=== PATIENT | female | born 1980 | race Caucasian/White ===

== ENCOUNTER 2020-03-27 18:11 | Inpatient (IN) | payer MEDICARE ==
[2020-03-27] MEDS ORDERED: Sodium Chloride 0.9% 1000 ML 1,000 ML IV STA (18:30)
--- NOTE | 2020-03-27 18:34 | ERPHSYRPT ---
<PHANI RAMOS [place] - Last Filed: 03/27/20 23:23> - History of Present Illness Source: patient Exam Limitations: no limitations Patient Subjective Stated Complaint: pt here for increase sob, cough today, and fevers off and for a week Triage Nursing Assessment: pt alert, arrived per wc, coughing, face mask in place, she was on her way to [place] to dr when heart started racing and got scared and stopped here resp easy, skin w/d/pale, no edema, Timing/Duration: gradual onset Associated Symptoms: shortness of breath, cough, fever, No nausea, No vomiting, No abdominal pain, No syncope Hx Tetanus, Diphtheria Vaccination/Date Given: Yes (2008) Hx Influenza Vaccination/Date Given: No Hx Pneumococcal Vaccination/Date Given: No Immunizations Up to Date: Yes <ESSENCE ANTON - Last Filed: 03/28/20 10:03> - History of Present Illness Time Seen by Provider: 03/27/20 18:29 Physician History: The patient is a 40-year-old female with a past medical history significant for 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 Of note, the patient was a poor historian. She stated that she was evaluated in [facility] 3 days ago for similar symptoms and reportedly was on her way to [facility] this evening to get evaluated by what was believed to be an oncologist for her symptoms. She states that she has "pleurisy" affecting her lungs and is normally on 2 L/ min via nasal cannula supplemental oxygen at baseline. She reportedly had to stop at this emergency department because she was feeling worse. Of note, she was accompanied by father. Reportedly has had this diagnosis for 11 years and states that she has not had radiation but her last chemotherapy was January. She reportedly has had a fever of 101 F as well (ESSENCE ANTON) Allergies/Adverse Reactions: levothyroxine Allergy (Verified 03/28/20 00:52) Home Medications: Albuterol 2.5 mg/3 ml Neb [Proventil 2.5 mg/3 ml Neb] 2.5 mg IH Q4-6HPRN PRN 03/27/20 [History] Alprazolam 0.25 mg [xanAX 0.25 MG] 0.25 mg PO TID PRN 03/27/20 [History] Benzonatate 200 mg PO TID PRN 03/27/20 [History] Budesonide 0.5 mg/2 ml [Pulmicort 0.5 mg/2 ml Respules] 0.5 mg IH BID 03/27/20 [History] Cyclobenzaprine HCl 5 mg PO TIDPRN 03/27/20 [History] Fluconazole [Diflucan] 200 mg PO DAILY 03/27/20 [History] Fluoxetine HCl [Prozac] 40 mg PO DAILY 03/27/20 [History] Loratadine 10 mg [Claritin 10 mg] 10 mg PO DAILY 03/27/20 [History] Metoprolol Succinate 50 mg [Toprol Xl 50 MG] 25 mg PO DAILY 03/27/20 [History] Omeprazole 40 mg PO DAILY 03/27/20 [History] Oxycodone HCl 30 mg PO Q4-6HPRN PRN 03/27/20 [History] Oxycodone HCl [Oxycontin] 60 mg PO BID 03/27/20 [History] Prednisone 10 mg [Deltasone 10 mg] 10 mg PO DAILY 03/27/20 [History] Promethazine HCl/Codeine [Prometh-Codein 6.25-10 mg/5 ml] 5 ml PO Q6H PRN PRN 03/27/20 [History] fentaNYL [Duragesic] 75 mcg TD UD 03/27/20 [History] ondansetron HCL [Zofran] 8 mg PO Q6H PRN PRN 03/27/20 [History] Travel Risk - International Travel Have you traveled outside of the country in past 3 weeks: No - Coronavirus Screening Are you exhibiting any of the following symptoms?: Yes Symptoms: Fever, Cough: New Onset Close contact with a COVID-19 positive Pt in past 14-21 Days: No <ESSENCE ANTON - Last Filed: 03/28/20 10:03> - Review of Systems Constitutional: Fever, Chills, Fatigue Eyes: No Symptoms Ears, Nose, & Throat: No Ear Pain, No Ear Discharge Respiratory: Cough, Dyspnea, Dyspnea on Exertion (SOLORZANO) Cardiac: Chest Pain Abdominal/Gastrointestinal: No Abdominal Pain, No Nausea, No Vomiting Musculoskeletal: Back Pain Skin: No Symptoms Neurological: No Symptoms Psychological: No Symptoms All Other Systems: Reviewed and Negative <ESSENCE ANTON - Last Filed: 03/28/20 10:03> - Past Medical History Pertinent Past Medical History: Yes Neurological History: Migraines, Other ENT History: No Pertinent History Cardiac History: Other Respiratory History: Lung Cancer Endocrine Medical History: Other Musculoskeletal History: No Pertinent History GI Medical History: GERD History: No Pertinent History Psycho-Social History: No Pertinent History Female Reproductive Disorders: Endometriosis Other Medical History: DIZZINESS; GESTATIONAL DIABETES,stage 4 thyloma - Past Surgical History Past Surgical History: Yes Neuro Surgical History: No Pertinent History Cardiac: Other Respiratory: Other Gastrointestinal: No Pertinent History Genitourinary: No Pertinent History Musculoskeletal: No Pertinent History Female Surgical History: Section, Other Other Surgical History: EXP SURGERY FOR ENDOMETRIOSIS; OPEN HEART SURGERY FOR CA REMOVAL,chest tubes - Social History Smoking Status: Former smoker Exposure to second hand smoke: No Drug Use: none Patient Lives Alone: No - Female History Hx Last Menstrual Period: unsure Hx Now: No <ESSENCE ANTON - Last Filed: 03/28/20 10:03> - Physical Exam General Appearance: mild distress, alert, other (Chronically-ill appearing) Eye Exam: other (Pale conjunctiva), No photophobia, No EOM palsy/anisocoria Neck Exam: normal inspection, non-tender, supple Respiratory Exam: respiratory distress (Mild respiratory distress with tac hypnea), diminished breath sounds, crackles/rales, No chest tenderness Cardiovascular Exam: normal peripheral pulses, tachycardia, No murmur, No friction rub, No gallop, No edema, No pulse deficit Gastrointestinal/Abdomen Exam: soft, No tenderness, No distention Pelvic Exam: not done Rectal Exam: deferred Back Exam: normal inspection Extremity Exam: normal inspection Neurologic Exam: alert, oriented x 3, cooperative Skin Exam: pale, No warm, No dry, No rash, No cyanosis SpO2: 92 O2 Delivery: Nasal Cannula <ESSENCE ANTON - Last Filed: 03/28/20 10:03> - Nursing Vital Signs Nursing Vital Signs: Initial Vital Signs Temperature 98.3 F 03/27/20 18:11 Pulse Rate 129 H 03/27/20 18:11 Respiratory Rate 22 03/27/20 18:11 Blood Pressure 104/76 03/27/20 18:11 O2 Sat by Pulse Oximetry 85 L 03/27/20 18:11 Pain Scale Pain Intensity 2 - Course Nursing assessment & vital signs reviewed: Yes EKG Interpreted by Me: Sinus Tach, Other (Sinus tachycardia, vent [id number] ms, CO interval 109 ms, QRSD 74 ms, QT/QTc 463 ms, no evidence of acute myocardial ischemia or injury pattern.) <ESSENCE ANTON - Last Filed: 03/28/20 10:03> Ordered Tests: Active Orders 24 hr Category Date Time Status Bedrest TOLERATED Activity 03/28/20 00:06 Active Code Status Order ROUTINE Care 03/28/20 00:06 Active EKG-ER Only STAT Care 03/27/20 18:30 Completed IV Insertion STAT Care 03/27/20 18:[address] in Observation ROUTINE Care 03/28/20 00:06 Active Telemetry PROTOCOL Care 03/28/20 00:06 Active Weight,Daily 0600 Care 03/28/20 00:06 Active Clear Liquid Diet 03/28/20 Breakfast Active CHEST WITH CONTRAST [CT] Stat Exams 03/27/20 18:32 Completed BLOOD CULTURE Stat Lab 03/27/20 19:20 Received CBC W DIFF Stat Lab 03/27/20 18:50 Completed CMP Stat Lab 03/27/20 18:50 Completed HCG,QUALITATIVE URINE Stat Lab 03/27/20 20:34 Completed Lactic Acid Stat Lab 03/27/20 18:51 Completed NT PRO BNP Stat Lab 03/27/20 18:50 Completed TROPONIN Q3H Lab 03/27/20 18:50 Completed TROPONIN Q3H Lab 03/27/20 22:30 Completed UA W/RFX UR CULTURE Stat Lab 03/27/20 20:34 Completed Urine Triage Profile Stat Lab 03/27/20 20:34 Completed Oxygen Nasal Cannula 4 lpm RT 03/28/20 00:06 Active Respiratory Therapy Consult ROUTINE RT 03/28/20 00:06 Completed Medication Summary Generic Name Dose Route Start Last Admin Trade Name Freq PRN Reason Stop Dose Admin Acetaminophen 650 mg 03/28/20 00:06 Tylenol 325 Mg PO 04/27/20 00:05 Q4H PRN PRN PAIN, FEVER, HEADACHE Albuterol Sulfate 2.5 mg 02/09/21 00:47 03/28/20 04:51 Proventil 2.5 Mg/3 Ml Neb IH 04/27/20 00:46 2.5 mg Q4H PRN PRN Administration SHORTNESS OF BREATH/WHEEZING Alprazolam 0.25 mg 03/28/20 07:30 Xanax 0.25 Mg PO 04/27/20 07:29 TID PRN KAELYN Benzonatate 200 mg 03/28/20 07:40 Tessalon Perles 100 Mg PO 04/27/20 07:39 TID PRN PRN Budesonide 0.5 mg 03/28/20 07:00 03/28/20 06:41 Pulmicort 0.5 Mg/2 Ml Respules IH 04/27/20 06:59 0.5 mg BIDRT KAELYN Administration Cyclobenzaprine HCl 5 mg 03/28/20 07:41 Cyclobenzaprine 10 Mg PO 04/27/20 07:40 TIDPRN PRN Fentanyl 75 mcg 03/30/20 07:30 Duragesic 75 Mcg Patch TOP 04/04/20 07:29 Q3D KAELYN Fluconazole 200 mg 03/28/20 10:00 03/28/20 09:54 Diflucan 100 Mg PO 04/27/20 09:59 Not Given DAILY KAELYN Fluoxetine HCl 40 mg 03/28/20 10:00 03/28/20 09:54 Prozac 20 Mg PO 04/27/20 09:59 Not Given DAILY KAELYN Sodium Chloride 1,000 mls @ 50 mls/hr 03/28/20 00:06 03/28/20 02:08 Sodium Chloride 0.9% 1000 Ml IV 04/27/20 00:05 50 mls/hr .Q20H KAELYN Administration Azithromycin 500 mg in 250 mls @ 250 mls/hr 03/28/20 07:30 03/28/20 07:34 Zithromax 500 Mg/ 250 Ml Nacl Premix IV 04/27/20 07:29 250 mls/hr Q24H10 KAELYN Administration Ceftriaxone Sodium/Dextrose 1 g in 50 mls @ 100 mls/hr 03/28/20 22:00 Rocephin 1 Gm-D5w 50 Ml Bag IV 04/27/20 21:59 Q24H22 KAEYLN Loratadine 10 mg 03/28/20 10:00 03/28/20 09:54 Claritin 10 Mg PO 04/27/20 09:59 Not Given DAILY KAELYN Metoprolol Succinate 25 mg 03/28/20 10:00 03/28/20 09:54 Toprol Xl 50 Mg PO 04/27/20 09:59 Not Given DAILY KAELYN Miscellaneous Information 0 each 03/28/20 07:47 Medication Intervention 04/27/20 07:46 .RN TO CHECK WITH PT PRN Miscellaneous Information 0 each 03/28/20 07:54 Medication Intervention 04/27/20 07:53 .RN TO CHECK WITH DR PRN Ondansetron HCl 8 mg 03/28/20 07:44 Zofran Odt 4 Mg PO 04/27/20 07:43 Q6H PRN PRN NAUSEA Pantoprazole Sodium 40 mg 03/28/20 10:00 03/28/20 09:54 Protonix 40mg Tablet PO 04/27/20 09:59 Not Given DAILY KAELYN Prednisone 10 mg 03/28/20 10:00 03/28/20 09:54 Deltasone 10 Mg PO 04/27/20 09:59 Not Given DAILY KAELYN Sodium Chloride 3 ml 03/28/20 07:22 Sodium Chloride 3 Ml Ud Nebules IH 04/27/20 07:21 PRN PRN Discontinued Medications Generic Name Dose Route Start Last Admin Trade Name Freq PRN Reason Stop Dose Admin Sodium Chloride 1,000 mls @ 999 mls/hr 03/27/20 18:30 03/27/20 20:12 Sodium Chloride 0.9% 1000 Ml IV 03/27/20 19:30 Infused .Q1H1M STA Infusion Sodium Chloride Confirm 03/27/20 18:42 Sodium Chloride 0.9% 1000 Ml Administered 03/27/20 18:43 Dose 1,000 mls @ ud .ROUTE .STK-MED ONE Ceftriaxone Sodium/Dextrose 1 g in 50 mls @ 100 mls/hr 03/27/20 23:10 03/27/20 23:21 Rocephin 1 Gm-D5w 50 Ml Bag IV 03/27/20 23:39 100 mls/hr STAT STA 100 mls/hr Administration Ceftriaxone Sodium/Dextrose Confirm 03/27/20 23:20 Rocephin 1 Gm-D5w 50 Ml Bag Administered 03/27/20 23:21 Dose 1 g in 50 mls @ ud IV .STK-MED ONE Ceftriaxone Sodium/Dextrose 1 g in 50 mls @ 100 mls/hr 03/28/20 10:00 Rocephin 1 Gm-D5w 50 Ml Bag IV 04/27/20 09:59 Q24H22 KAELYN Non-Formulary Medication 60 mg 03/28/20 10:00 Oxycodone Hcl [Oxycontin] PO 04/27/20 09:59 BID KAELYN Sodium Chloride Confirm 03/28/20 06:44 Sodium Chloride 3 Ml Ud Nebules Administered 03/28/20 06:45 Dose 3 ml IH .STK-MED ONE Lab/Rad Data: Laboratory Result Diagrams 03/27/20 18:50 03/27/20 18:50 Laboratory Results 03/27/20 03/27/20 03/27/20 Range/Units 22:30 20:34 20:34 WBC (4.0-10.5) K/mm3 RBC (4.1-5.4) M/mm3 Hgb (12.0-16.0) gm/dl Hct (35-47) % MCV (78-100) fl MCH (26-32) pg MCHC (32-36) g/dl RDW (11.5-14.0) % Plt Count (150-450) K/mm3 MPV (7.5-11.0) fl Gran % (36.0-66.0) % Eos # (Auto) (0-0.5) Absolute Lymphs (auto) (1.0-4.6) Absolute Monos (auto) (0.0-1.3) Lymphocytes % (24.0-44.0) % Monocytes % (0.0-12.0) % Eosinophils % (0.00-5.0) % Basophils % (0.0-0.4) % Absolute Granulocytes (1.4-6.9) Basophils # (0-0.4) Sodium (137-145) mmol/L Potassium (3.5-5.1) mmol/L Chloride (98-107) mmol/L Carbon Dioxide (22-30) mmol/L Anion Gap (5-15) MEQ/L BUN (7-17) mg/dL Creatinine (0.52-1.04) mg/dL Estimated GFR ML/MIN Glucose (74-106) mg/dL Lactic Acid (0.4-2.0) Calcium (8.4-10.2) mg/dL Total Bilirubin (0.2-1.3) mg/dL AST (14-36) U/L ALT (0-35) U/L Alkaline Phosphatase (38-126) U/L Troponin I < 0.012 (0.000-0.034) ng/mL NT-Pro-B Natriuret Pep (0-450) pg/mL Serum Total Protein (6.3-8.2) g/dL Albumin (3.5-5.0) g/dL Urine Color (YELLOW) Urine Appearance (CLEAR) Urine pH (5-6) Ur Specific [place] (1.005-1.025) Urine Protein (Negative) Urine Ketones (NEGATIVE) Urine Blood (0-5) Juan/ul Urine Nitrite (NEGATIVE) Urine Bilirubin (NEGATIVE) Urine Urobilinogen (0-1) mg/dL Ur Leukocyte Esterase (NEGATIVE) Urine WBC (Auto) (0-5) /HPF Urine RBC (Auto) (0-2) /HPF U Epithel Cells (Auto) (FEW) /HPF Urine Bacteria (Auto) (NEGATIVE) /HPF Urine Mucus (Auto) (NEGATIVE) /HPF Urine Culture Reflexed (NO) Urine Glucose (NEGATIVE) mg/dL Urine HCG, Qual NEGATIVE (Negative) Urine Opiates Level POSITIVE (NEGATIVE) Ur Methadone NEGATIVE (NEGATIVE) Urine Barbiturates NEGATIVE (NEGATIVE) Ur Phencyclidine (PCP) NEGATIVE (NEGATIVE) Urine Amphetamine NEGATIVE (NEGATIVE) U Benzodiazepine Level NEGATIVE (NEGATIVE) Urine Cocaine NEGATIVE (NEGATIVE) Urine Marijuana (THC) NEGATIVE (NEGATIVE) Influenza Type A Ag (NEGATIVE) Influenza Type B Ag (NEGATIVE) RSV (PCR) (Negative) SARS-CoV-2 (PCR) (NEGATIVE) 03/27/20 03/27/20 03/27/20 Range/Units 20:34 19:24 18:51 WBC (4.0-10.5) K/mm3 RBC (4.1-5.4) M/mm3 Hgb (12.0-16.0) gm/dl Hct (35-47) % MCV (78-100) fl MCH (26-32) pg MCHC (32-36) g/dl RDW (11.5-14.0) % Plt Count (150-450) K/mm3 MPV (7.5-11.0) fl Gran % (36.0-66.0) % Eos # (Auto) (0-0.5) Absolute Lymphs (auto) (1.0-4.6) Absolute Monos (auto) (0.0-1.3) Lymphocytes % (24.0-44.0) % Monocytes % (0.0-12.0) % Eosinophils % (0.00-5.0) % Basophils % (0.0-0.4) % Absolute Granulocytes (1.4-6.9) Basophils # (0-0.4) Sodium (137-145) mmol/L Potassium (3.5-5.1) mmol/L Chloride (98-107) mmol/L Carbon Dioxide (22-30) mmol/L Anion Gap (5-15) MEQ/L BUN (7-17) mg/dL Creatinine (0.52-1.04) mg/dL Estimated GFR ML/MIN Glucose (74-106) mg/dL Lactic Acid 1.7 (0.4-2.0) Calcium (8.4-10.2) mg/dL Total Bilirubin (0.2-1.3) mg/dL AST (14-36) U/L ALT (0-35) U/L Alkaline Phosphatase (38-126) U/L Troponin I (0.000-0.034) ng/mL NT-Pro-B Natriuret Pep (0-450) pg/mL Serum Total Protein (6.3-8.2) g/dL Albumin (3.5-5.0) g/dL Urine Color YELLOW (YELLOW) Urine Appearance CLEAR (CLEAR) Urine pH 8.0 (5-6) Ur Specific [place] 1.010 (1.005-1.025) Urine Protein 100 (Negative) Urine Ketones NEGATIVE (NEGATIVE) Urine Blood NEGATIVE (0-5) Juan/ul Urine Nitrite NEGATIVE (NEGATIVE) Urine Bilirubin NEGATIVE (NEGATIVE) Urine Urobilinogen NEGATIVE (0-1) mg/dL Ur Leukocyte Esterase NEGATIVE (NEGATIVE) Urine WBC (Auto) 3-5 (0-5) /HPF Urine RBC (Auto) NONE (0-2) /HPF U Epithel Cells (Auto) NONE (FEW) /HPF Urine Bacteria (Auto) NONE (NEGATIVE) /HPF Urine Mucus (Auto) SLIGHT (NEGATIVE) /HPF Urine Culture Reflexed NO (NO) Urine Glucose NEGATIVE (NEGATIVE) mg/dL Urine HCG, Qual (Negative) Urine Opiates Level (NEGATIVE) Ur Methadone (NEGATIVE) Urine Barbiturates (NEGATIVE) Ur Phencyclidine (PCP) (NEGATIVE) Urine Amphetamine (NEGATIVE) U Benzodiazepine Level (NEGATIVE) Urine Cocaine (NEGATIVE) Urine Marijuana (THC) (NEGATIVE) Influenza Type A Ag NEGATIVE (NEGATIVE) Influenza Type B Ag NEGATIVE (NEGATIVE) RSV (PCR) NEGATIVE (Negative) SARS-CoV-2 (PCR) NEGATIVE (NEGATIVE) 03/27/20 03/27/20 03/27/20 Range/Units 18:50 18:50 18:50 WBC (4.0-10.5) K/mm3 RBC (4.1-5.4) M/mm3 Hgb (12.0-16.0) gm/dl Hct (35-47) % MCV (78-100) fl MCH (26-32) pg MCHC (32-36) g/dl RDW (11.5-14.0) % Plt Count (150-450) K/mm3 MPV (7.5-11.0) fl Gran % (36.0-66.0) % Eos # (Auto) (0-0.5) Absolute Lymphs (auto) (1.0-4.6) Absolute Monos (auto) (0.0-1.3) Lymphocytes % (24.0-44.0) % Monocytes % (0.0-12.0) % Eosinophils % (0.00-5.0) % Basophils % (0.0-0.4) % Absolute Granulocytes (1.4-6.9) Basophils # (0-0.4) Sodium 132 L (137-145) mmol/L Potassium 3.2 L (3.5-5.1) mmol/L Chloride 82 L (98-107) mmol/L Carbon Dioxide 41 H (22-30) mmol/L Anion Gap 12.2 (5-15) MEQ/L BUN 10 (7-17) mg/dL Creatinine 0.46 L (0.52-1.04) mg/dL Estimated GFR > 60.0 ML/MIN Glucose 168 H (74-106) mg/dL Lactic Acid (0.4-2.0) Calcium 7.8 L (8.4-10.2) mg/dL Total Bilirubin 0.30 (0.2-1.3) mg/dL AST 32 (14-36) U/L ALT 16 (0-35) U/L Alkaline Phosphatase 99 (38-126) U/L Troponin I < 0.012 (0.000-0.034) ng/mL NT-Pro-B Natriuret Pep 549 H (0-450) pg/mL Serum Total Protein 6.3 (6.3-8.2) g/dL Albumin 2.9 L (3.5-5.0) g/dL Urine Color (YELLOW) Urine Appearance (CLEAR) Urine pH (5-6) Ur Specific [place] (1.005-1.025) Urine Protein (Negative) Urine Ketones (NEGATIVE) Urine Blood (0-5) Juan/ul Urine Nitrite (NEGATIVE) Urine Bilirubin (NEGATIVE) Urine Urobilinogen (0-1) mg/dL Ur Leukocyte Esterase (NEGATIVE) Urine WBC (Auto) (0-5) /HPF Urine RBC (Auto) (0-2) /HPF U Epithel Cells (Auto) (FEW) /HPF Urine Bacteria (Auto) (NEGATIVE) /HPF Urine Mucus (Auto) (NEGATIVE) /HPF Urine Culture Reflexed (NO) Urine Glucose (NEGATIVE) mg/dL Urine HCG, Qual (Negative) Urine Opiates Level (NEGATIVE) Ur Methadone (NEGATIVE) Urine Barbiturates (NEGATIVE) Ur Phencyclidine (PCP) (NEGATIVE) Urine Amphetamine (NEGATIVE) U Benzodiazepine Level (NEGATIVE) Urine Cocaine (NEGATIVE) Urine Marijuana (THC) (NEGATIVE) Influenza Type A Ag (NEGATIVE) Influenza Type B Ag (NEGATIVE) RSV (PCR) (Negative) SARS-CoV-2 (PCR) (NEGATIVE) 03/27/20 Range/Units 18:50 WBC 8.8 (4.0-10.5) K/mm3 RBC 3.01 L (4.1-5.4) M/mm3 Hgb 9.0 L (12.0-16.0) gm/dl Hct 30.3 L (35-47) % MCV 100.7 H (78-100) fl MCH 29.9 (26-32) pg MCHC 29.7 L (32-36) g/dl RDW 14.8 H (11.5-14.0) % Plt Count 377 (150-450) K/mm3 MPV 9.1 (7.5-11.0) fl Gran % 72.7 H (36.0-66.0) % Eos # (Auto) 0.06 (0-0.5) Absolute Lymphs (auto) 0.94 L (1.0-4.6) Absolute Monos (auto) 1.39 H (0.0-1.3) Lymphocytes % 10.7 L (24.0-44.0) % Monocytes % 15.8 H (0.0-12.0) % Eosinophils % 0.7 (0.00-5.0) % Basophils % 0.1 (0.0-0.4) % Absolute Granulocytes 6.39 (1.4-6.9) Basophils # 0.01 (0-0.4) Sodium (137-145) mmol/L Potassium (3.5-5.1) mmol/L Chloride (98-107) mmol/L Carbon Dioxide (22-30) mmol/L Anion Gap (5-15) MEQ/L BUN (7-17) mg/dL Creatinine (0.52-1.04) mg/dL Estimated GFR ML/MIN Glucose (74-106) mg/dL Lactic Acid (0.4-2.0) Calcium (8.4-10.2) mg/dL Total Bilirubin (0.2-1.3) mg/dL AST (14-36) U/L ALT (0-35) U/L Alkaline Phosphatase (38-126) U/L Troponin I (0.000-0.034) ng/mL NT-Pro-B Natriuret Pep (0-450) pg/mL Serum Total Protein (6.3-8.2) g/dL Albumin (3.5-5.0) g/dL Urine Color (YELLOW) Urine Appearance (CLEAR) Urine pH (5-6) Ur Specific [place] (1.005-1.025) Urine Protein (Negative) Urine Ketones (NEGATIVE) Urine Blood (0-5) Juan/ul Urine Nitrite (NEGATIVE) Urine Bilirubin (NEGATIVE) Urine Urobilinogen (0-1) mg/dL Ur Leukocyte Esterase (NEGATIVE) Urine WBC (Auto) (0-5) /HPF Urine RBC (Auto) (0-2) /HPF U Epithel Cells (Auto) (FEW) /HPF Urine Bacteria (Auto) (NEGATIVE) /HPF Urine Mucus (Auto) (NEGATIVE) /HPF Urine Culture Reflexed (NO) Urine Glucose (NEGATIVE) mg/dL Urine HCG, Qual (Negative) Urine Opiates Level (NEGATIVE) Ur Methadone (NEGATIVE) Urine Barbiturates (NEGATIVE) Ur Phencyclidine (PCP) (NEGATIVE) Urine Amphetamine (NEGATIVE) U Benzodiazepine Level (NEGATIVE) Urine Cocaine (NEGATIVE) Urine Marijuana (THC) (NEGATIVE) Influenza Type A Ag (NEGATIVE) Influenza Type B Ag (NEGATIVE) RSV (PCR) (Negative) SARS-CoV-2 (PCR) (NEGATIVE) - Progress Progress: improved, pain not gone completely, re-examined Discussed with .: Layton Counseled pt/family regarding: lab results, diagnosis, rad results <PHANI RAMOS - Last Filed: 03/27/20 23:23> - Progress Progress Note: 03/27/20 23:24 CAT scan of the chest with contrast is negative for pulmonary embolus. There is bilateral somewhat diffuse airspace opacities likely reflecting infectious process. However, underlying malignancy is not excluded. There is a right- sided Port-A-Cath present. There is scattered, enlarged mediastinal lymph nodes measuring up to 2.3 cm which is nonspecific. Medical decision making: This patient has a history of metastatic thymoma per her report. Her mother was on her way to take this patient to [facility] in [place]. However, it began to snow and there was an associated in terms of time, heart rate in the 200 range. Be diverted to this facility. Work-up shows the above-stated findings on CAT scan of the chest. Her lab work shows chronic disease with anemia, mild hypokalemia. I spoke with Dr. Paris, the hospitalist on-call for unassigned patients. We will be placing this patient into observation on a monitored bed overnight. We will provide her with intravenous fluids, intravenous antibiotics, antiemetics and pain control. Patient's mother will contact the [facility] hematologistoncologist Dr. Zen Braun. Dr. Paris's plan is to also contact this same physician tomorrow to make arrangements for a possible discharge or direct admit/transfer if indicated. (PHANI RAMOS) - Departure Departure Disposition: Observation Critical Care Time: No <PHANI RAMOS - Last Filed: 03/27/20 23:23> <ESSENCE ANTON - Last Filed: 03/28/20 10:03> - Departure Clinical Impression: Pneumonia Qualifiers: Pneumonia type: due to unspecified organism Laterality: unspecified laterality Lung location: unspecified part of lung Qualified Code(s): J18.9 - Pneumonia, unspecified organism Lung malignancy Qualifiers: Laterality: unspecified laterality Lung location: unspecified part of lung Qualified Code(s): C34.90 - Malignant neoplasm of unspecified part of unspecifi ed bronchus or lung Condition: Stable
[2020-03-27] MEDS ORDERED: Sodium Chloride 0.9% 1000 ML 1,000 ML ONE (18:42)
[2020-03-27 19:28] LABS: Absolute Neutrophil Ct (ANC) 6.39 (1.4-6.9); BASOPHIL % 0.1 % (0.0-0.4); Basophil (Absolute #) 0.01 (0-0.4); Eosinophil % 0.7 % (0.00-5.0); Eosinophil (Absolute #) 0.06 (0-0.5); Hematocrit 30.3 % (35-47); Lymphocyte (Absolute #) 0.94 (1.0-4.6); Lymphocytes % 10.7 % (24.0-44.0); Mean Cell Volume 100.7 fl (78-100); Mean Corpuscular Hemoglobin 29.9 pg (26-32); Mean Corpuscular Hgb Concent. 29.7 g/dl (32-36); Mean Platelet Volume 9.1 fl (7.5-11.0); Monocyte (Absolute #) 1.39 (0.0-1.3); Monocytes % 15.8 % (0.0-12.0); Neutrophil % 72.7 % (36.0-66.0); Platelet Count 377 K/mm3 (150-450); Red Blood Count 3.01 M/mm3 (4.1-5.4); Red Cell Distribution Width 14.8 % (11.5-14.0); White Blood Count 8.8 K/mm3 (4.0-10.5)
[2020-03-27 19:42] LABS: ALBUMIN 2.9 g/dL (3.5-5.0); ALKALINE PHOSPHATASE 99 U/L (38-126); BLOOD UREA NITROGEN 10 mg/dL (7-17); CHLORIDE 82 mmol/L (98-107); Calcium 7.8 mg/dL (8.4-10.2); Creatinine 1 0.46 mg/dL (0.52-1.04); EST GLOMERULAR FILTRATION RATE > 60.0 ML/MIN; Glucose 168 mg/dL (74-106); Potassium 3.2 mmol/L (3.5-5.1); SGOT/AST 32 U/L (14-36); SGPT/ALT 16 U/L (0-35); SODIUM 132 mmol/L (137-145); Total Protein 6.3 g/dL (6.3-8.2)
[2020-03-27 19:50] LABS: Carbon Dioxide 41 mmol/L (22-30)
[2020-03-27 19:51] LABS: ANION GAP 12.2 MEQ/L (5-15)
[2020-03-27 20:06] LABS: INFLUENZA B NEGATIVE (NEGATIVE); RESPIRATORY SYNCTIAL VIRUS NEGATIVE (Negative)
[2020-03-27 20:09] LABS: INFLUENZA A NEGATIVE (NEGATIVE)
[2020-03-27 20:48] LABS: Appearance CLEAR (CLEAR); Bilirubin NEGATIVE (NEGATIVE); Blood NEGATIVE Ery/ul (0-5); Glucose NEGATIVE (NEGATIVE); Ketones NEGATIVE (NEGATIVE); Leukocyte Esterase NEGATIVE (NEGATIVE); Mucus SLIGHT /HPF (NEGATIVE); Nitrite NEGATIVE (NEGATIVE); Protein,Urine Dip 100 (Negative); Urobilinogen NEGATIVE mg/dL (0-1)
[2020-03-27 21:07] LABS: Amphetamine,Urine NEGATIVE (NEGATIVE); Barbiturate,Urine NEGATIVE (NEGATIVE); Benzodiazepine,Urine NEGATIVE (NEGATIVE); Cocaine,Urine NEGATIVE (NEGATIVE); Methadone,Urine NEGATIVE (NEGATIVE); Opiate,Urine POSITIVE (NEGATIVE); PCP,Urine NEGATIVE (NEGATIVE); THC,Urine NEGATIVE (NEGATIVE)
[2020-03-27] MEDS ORDERED: ROCEPHIN 1 Gm-D5w 50 ml Bag** 1 G/50 ML IVPB IV STA (23:10)
[2020-03-27] MEDS ORDERED: ROCEPHIN 1 Gm-D5w 50 ml Bag** 1 G/50 ML IVPB IV ONE (23:20)
[2020-03-28] MEDS: PROVENTIL 2.5 MG/3 ML NEB IH PRN ×3 (00:51→18:51)
[2020-03-28] MEDS: Sodium Chloride 0.9% 1000 ML 1,000 ML IV SCH ×2 (02:08→22:32)
[2020-03-28] MEDS: PULMICORT 0.5 MG/2 ML RESPULES IH SCH ×2 (06:41→18:45)
[2020-03-28] MEDS ORDERED: Sodium Chloride 3 ML UD NEBULES IH ONE (06:44)
[2020-03-28] MEDS ORDERED: Sodium Chloride 3 ML UD NEBULES IH PRN (07:22)
[2020-03-28] MEDS ORDERED: NON-FORMULARY ITEM (Ondansetron Hcl [Zofran] 8 MG) PO PRN (07:25)
[2020-03-28] MEDS ORDERED: PROMETHAZINE HCL PO PRN (07:25)
[2020-03-28] MEDS ORDERED: CODEINE PO PRN (07:25)
[2020-03-28] MEDS ORDERED: OXYCODONE HCL 30 MG PO PRN (07:25)
[2020-03-28] MEDS ORDERED: BENZONATATE 200 MG PO SCH (07:30)
[2020-03-28] MEDS ORDERED: NON-FORMULARY ITEM (Cyclobenzaprine Hcl [Cyclobenzaprine Hcl] 5 MG) PO SCH (07:30)
[2020-03-28] MEDS ORDERED: xanAX 0.25 MG PO SCH (07:30)
[2020-03-28] MEDS: Zithromax 500 MG/ 250 ML NaCl Premix 500 MG/250 ML IVPB IV SCH (07:34)
[2020-03-28] MEDS ORDERED: Cyclobenzaprine 10 MG PO PRN (07:41)
[2020-03-28] MEDS ORDERED: ZOFRAN ODT 4 MG PO PRN (07:44)
[2020-03-28] MEDS ORDERED: MEDICATION INTERVENTION MC PRN ×2 (07:47→07:54)
--- NOTE | 2020-03-28 09:09 | PCM.HP ---
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 Of note, the patient was a poor historian. She stated that she was evaluated in [facility] 3 days ago for similar symptoms and reportedly was on her way to [facility] this evening to get evaluated by what was believed to be an oncologist for her symptoms. She states that she has "pleurisy" affecting her lungs and is normally on 2 L/min via nasal cannula supplemental oxygen at baseline. She reportedly had to stop at this emergency department because she was feeling worse. Of note, she was accompanied by father. Reportedly has had this diagnosis for 11 years and states that she has not had radiation but her last chemotherapy was January. She reportedly has had a fever of 101 F as well - Review of Systems Constitutional: No Fever, No Chills Eyes: No Symptoms Ears, Nose, & Throat: No Symptoms Respiratory: Cough, Orthopnea, Short Of Breath, Wheezing Cardiac: No Chest Pain, No Edema, No Syncope Abdominal/Gastrointestinal: No Abdominal Pain, No Nausea, No Vomiting, No Diarrhea Genitourinary Symptoms: No Dysuria Musculoskeletal: No Back Pain, No Neck Pain Skin: No Rash Neurological: No Dizziness, No Focal Weakness, No Sensory Changes Psychological: No Symptoms Endocrine: No Symptoms Hematologic/Lymphatic: No Symptoms Immunological/Allergic: No Symptoms Medications & Allergies Home Medications: Home Medication List Albuterol 2.5 mg/3 ml Neb [Proventil 2.5 mg/3 ml Neb] 2.5 mg IH Q4-6HPRN PRN 03/27/20 [History Confirmed 03/27/20] Alprazolam 0.25 mg [xanAX 0.25 MG] 0.25 mg PO TID PRN 03/27/20 [History Confirmed 03/27/20] Benzonatate 200 mg PO TID PRN 03/27/20 [History Confirmed 03/27/20] Budesonide 0.5 mg/2 ml [Pulmicort 0.5 mg/2 ml Respules] 0.5 mg IH BID 03/27/20 [History Confirmed 03/27/20] Cyclobenzaprine HCl 5 mg PO TIDPRN 03/27/20 [History Confirmed 03/27/20] Fluconazole [Diflucan] 200 mg PO DAILY 03/27/20 [History Confirmed 03/27/20] Fluoxetine HCl [Prozac] 40 mg PO DAILY 03/27/20 [History Confirmed 03/27/20] Loratadine 10 mg [Claritin 10 mg] 10 mg PO DAILY 03/27/20 [History Confirmed 03/27/20] Metoprolol Succinate 50 mg [Toprol Xl 50 MG] 25 mg PO DAILY 03/27/20 [History Confirmed 03/28/20] Omeprazole 40 mg PO DAILY 03/27/20 [History Confirmed 03/27/20] Oxycodone HCl 30 mg PO Q4-6HPRN PRN 03/27/20 [History Confirmed 03/28/20] Oxycodone HCl [Oxycontin] 60 mg PO BID 03/27/20 [History Confirmed 03/27/20] Prednisone 10 mg [Deltasone 10 mg] 10 mg PO DAILY 03/27/20 [History Confirmed 03/27/20] Promethazine HCl/Codeine [Prometh-Codein 6.25-10 mg/5 ml] 5 ml PO Q6H PRN PRN 03/27/20 [History Confirmed 03/27/20] fentaNYL [Duragesic] 75 mcg TD UD 03/27/20 [History Confirmed 03/27/20] ondansetron HCL [Zofran] 8 mg PO Q6H PRN PRN 03/27/20 [History Confirmed 03/27/20] Allergies/Adverse Reactions: Allergies Allergy/AdvReac Type Severity Reaction Status Date / Time levothyroxine Allergy Verified 03/28/20 00:52 - Past Medical History Past Medical History: Yes Neurological History: Migraines, Other ENT History: No Pertinent History Cardiac History: Other Respiratory History: Lung Cancer Endocrine Medical History: Other Musculoskelatal History: No Pertinent History GI Medical History: GERD History: No Pertinent History Pyscho-Social History: No Pertinent History Reproductive Disorders: Endometriosis Comment: DIZZINESS; GESTATIONAL DIABETES,stage 4 thyloma - Female History Hx Last Menstrual Period: unsure Are you now?: No - Past Surgical History Past Surgical History: Yes Neuro Surgical History: No Pertinent History Cardiac History: Other Respiratory Surgery: Other GI Surgical History: No Pertinent History Genitourinary Surgical Hx: No Pertinent History Musculskeletal Surgical Hx: No Pertinent History Female Surgical History: Section, Other Other Surgical History: EXP SURGERY FOR ENDOMETRIOSIS; OPEN HEART SURGERY FOR CA REMOVAL,chest tubes, right hazel cath - Social History Smoking Status: Former smoker Exposure to second hand smoke: No Alcohol: None Drug Use: none - Physical Exam Vital Signs: Vital Signs - 24 hr Temp Pulse Resp BP BP Pulse Ox 03/28/20 07:29 98.2 F 103 H 20 110/58 93 L 03/28/20 06:45 105 H 24 90 L 03/28/20 04:51 22 03/28/20 04:00 98.9 F 95 H 16 107/68 90 L 03/28/20 00:59 98.4 F 115 H 24 109/68 118/73 90 L 03/28/20 00:54 98.4 F 115 H 24 109/68 90 L 03/28/20 00:53 98.4 F 115 H 24 109/68 90 L 03/28/20 00:51 106 H 24 91 L 03/28/20 00:08 110 H 20 118/73 93 L 03/27/20 23:08 111 H 108/76 95 03/27/20 22:14 110 H 118/76 98 03/27/20 21:22 117 H 110/72 97 03/27/20 20:34 116 H 95/77 95 03/27/20 19:27 92 L 03/27/20 19:09 117 H 18 99/54 92 L 03/27/20 18:16 20 92 L 03/27/20 18:11 98.3 F 129 H 22 104/76 85 L General Appearance: no apparent distress, alert Neurologic Exam: alert, oriented x 3, cooperative, normal mood/affect, nml cerebellar function, nml station & gait, sensation nml, No motor deficits Eye Exam: PERRL/EOMI, eyes nml inspection Ears, Nose, Throat Exam: normal ENT inspection, TMs normal, pharynx normal, moist mucous membranes Neck Exam: normal inspection, non-tender, supple, full range of motion Respiratory Exam: diminished breath sounds, crackles/rales, rhonchi, wheezing, No respiratory distress Cardiovascular Exam: regular rate/rhythm, normal heart sounds, normal peripheral pulses Gastrointestinal/Abdomen Exam: soft, normal bowel sounds, No tenderness, No mass Back Exam: normal inspection, normal range of motion, No CVA tenderness, No vertebral tenderness Extremity Exam: normal inspection, normal range of motion, pelvis stable Skin Exam: normal color, warm, dry, No rash Lymphatic Exam: No adenopathy Results - Labs Lab/Micro Results: Lab Results-Last 24 Hours 03/27/20 03/27/20 03/27/20 Range/Units 18:50 18:50 18:50 WBC 8.8 (4.0-10.5) K/mm3 RBC 3.01 L (4.1-5.4) M/mm3 Hgb 9.0 L (12.0-16.0) gm/dl Hct 30.3 L (35-47) % MCV 100.7 H (78-100) fl MCH 29.9 (26-32) pg MCHC 29.7 L (32-36) g/dl RDW 14.8 H (11.5-14.0) % Plt Count 377 (150-450) K/mm3 MPV 9.1 (7.5-11.0) fl Gran % 72.7 H (36.0-66.0) % Eos # (Auto) 0.06 (0-0.5) Absolute Lymphs (auto) 0.94 L (1.0-4.6) Absolute Monos (auto) 1.39 H (0.0-1.3) Lymphocytes % 10.7 L (24.0-44.0) % Monocytes % 15.8 H (0.0-12.0) % Eosinophils % 0.7 (0.00-5.0) % Basophils % 0.1 (0.0-0.4) % Absolute Granulocytes 6.39 (1.4-6.9) Basophils # 0.01 (0-0.4) Sodium 132 L (137-145) mmol/L Potassium 3.2 L (3.5-5.1) mmol/L Chloride 82 L (98-107) mmol/L Carbon Dioxide 41 H (22-30) mmol/L Anion Gap 12.2 (5-15) MEQ/L BUN 10 (7-17) mg/dL Creatinine 0.46 L (0.52-1.04) mg/dL Estimated GFR > 60.0 ML/MIN Glucose 168 H (74-106) mg/dL Lactic Acid (0.4-2.0) Calcium 7.8 L (8.4-10.2) mg/dL Total Bilirubin 0.30 (0.2-1.3) mg/dL AST 32 (14-36) U/L ALT 16 (0-35) U/L Alkaline Phosphatase 99 (38-126) U/L Troponin I (0.000-0.034) ng/mL NT-Pro-B Natriuret Pep 549 H (0-450) pg/mL Serum Total Protein 6.3 (6.3-8.2) g/dL Albumin 2.9 L (3.5-5.0) g/dL Urine Color (YELLOW) Urine Appearance (CLEAR) Urine pH (5-6) Ur Specific [place] (1.005-1.025) Urine Protein (Negative) Urine Ketones (NEGATIVE) Urine Blood (0-5) Juan/ul Urine Nitrite (NEGATIVE) Urine Bilirubin (NEGATIVE) Urine Urobilinogen (0-1) mg/dL Ur Leukocyte Esterase (NEGATIVE) Urine WBC (Auto) (0-5) /HPF Urine RBC (Auto) (0-2) /HPF U Epithel Cells (Auto) (FEW) /HPF Urine Bacteria (Auto) (NEGATIVE) /HPF Urine Mucus (Auto) (NEGATIVE) /HPF Urine Culture Reflexed (NO) Urine Glucose (NEGATIVE) mg/dL Urine HCG, Qual (Negative) Urine Opiates Level (NEGATIVE) Ur Methadone (NEGATIVE) Urine Barbiturates (NEGATIVE) Ur Phencyclidine (PCP) (NEGATIVE) Urine Amphetamine (NEGATIVE) U Benzodiazepine Level (NEGATIVE) Urine Cocaine (NEGATIVE) Urine Marijuana (THC) (NEGATIVE) Influenza Type A Ag (NEGATIVE) Influenza Type B Ag (NEGATIVE) RSV (PCR) (Negative) SARS-CoV-2 (PCR) (NEGATIVE) 03/27/20 03/27/20 03/27/20 Range/Units 18:50 18:51 19:24 WBC (4.0-10.5) K/mm3 RBC (4.1-5.4) M/mm3 Hgb (12.0-16.0) gm/dl Hct (35-47) % MCV (78-100) fl MCH (26-32) pg MCHC (32-36) g/dl RDW (11.5-14.0) % Plt Count (150-450) K/mm3 MPV (7.5-11.0) fl Gran % (36.0-66.0) % Eos # (Auto) (0-0.5) Absolute Lymphs (auto) (1.0-4.6) Absolute Monos (auto) (0.0-1.3) Lymphocytes % (24.0-44.0) % Monocytes % (0.0-12.0) % Eosinophils % (0.00-5.0) % Basophils % (0.0-0.4) % Absolute Granulocytes (1.4-6.9) Basophils # (0-0.4) Sodium (137-145) mmol/L Potassium (3.5-5.1) mmol/L Chloride (98-107) mmol/L Carbon Dioxide (22-30) mmol/L Anion Gap (5-15) MEQ/L BUN (7-17) mg/dL Creatinine (0.52-1.04) mg/dL Estimated GFR ML/MIN Glucose (74-106) mg/dL Lactic Acid 1.7 (0.4-2.0) Calcium (8.4-10.2) mg/dL Total Bilirubin (0.2-1.3) mg/dL AST (14-36) U/L ALT (0-35) U/L Alkaline Phosphatase (38-126) U/L Troponin I < 0.012 (0.000-0.034) ng/mL NT-Pro-B Natriuret Pep (0-450) pg/mL Serum Total Protein (6.3-8.2) g/dL Albumin (3.5-5.0) g/dL Urine Color (YELLOW) Urine Appearance (CLEAR) Urine pH (5-6) Ur Specific [place] (1.005-1.025) Urine Protein (Negative) Urine Ketones (NEGATIVE) Urine Blood (0-5) Juan/ul Urine Nitrite (NEGATIVE) Urine Bilirubin (NEGATIVE) Urine Urobilinogen (0-1) mg/dL Ur Leukocyte Esterase (NEGATIVE) Urine WBC (Auto) (0-5) /HPF Urine RBC (Auto) (0-2) /HPF U Epithel Cells (Auto) (FEW) /HPF Urine Bacteria (Auto) (NEGATIVE) /HPF Urine Mucus (Auto) (NEGATIVE) /HPF Urine Culture Reflexed (NO) Urine Glucose (NEGATIVE) mg/dL Urine HCG, Qual (Negative) Urine Opiates Level (NEGATIVE) Ur Methadone (NEGATIVE) Urine Barbiturates (NEGATIVE) Ur Phencyclidine (PCP) (NEGATIVE) Urine Amphetamine (NEGATIVE) U Benzodiazepine Level (NEGATIVE) Urine Cocaine (NEGATIVE) Urine Marijuana (THC) (NEGATIVE) Influenza Type A Ag NEGATIVE (NEGATIVE) Influenza Type B Ag NEGATIVE (NEGATIVE) RSV (PCR) NEGATIVE (Negative) SARS-CoV-2 (PCR) NEGATIVE (NEGATIVE) 03/27/20 03/27/20 03/27/20 Range/Units 20:34 20:34 20:34 WBC (4.0-10.5) K/mm3 RBC (4.1-5.4) M/mm3 Hgb (12.0-16.0) gm/dl Hct (35-47) % MCV (78-100) fl MCH (26-32) pg MCHC (32-36) g/dl RDW (11.5-14.0) % Plt Count (150-450) K/mm3 MPV (7.5-11.0) fl Gran % (36.0-66.0) % Eos # (Auto) (0-0.5) Absolute Lymphs (auto) (1.0-4.6) Absolute Monos (auto) (0.0-1.3) Lymphocytes % (24.0-44.0) % Monocytes % (0.0-12.0) % Eosinophils % (0.00-5.0) % Basophils % (0.0-0.4) % Absolute Granulocytes (1.4-6.9) Basophils # (0-0.4) Sodium (137-145) mmol/L Potassium (3.5-5.1) mmol/L Chloride (98-107) mmol/L Carbon Dioxide (22-30) mmol/L Anion Gap (5-15) MEQ/L BUN (7-17) mg/dL Creatinine (0.52-1.04) mg/dL Estimated GFR ML/MIN Glucose (74-106) mg/dL Lactic Acid (0.4-2.0) Calcium (8.4-10.2) mg/dL Total Bilirubin (0.2-1.3) mg/dL AST (14-36) U/L ALT (0-35) U/L Alkaline Phosphatase (38-126) U/L Troponin I (0.000-0.034) ng/mL NT-Pro-B Natriuret Pep (0-450) pg/mL Serum Total Protein (6.3-8.2) g/dL Albumin (3.5-5.0) g/dL Urine Color YELLOW (YELLOW) Urine Appearance CLEAR (CLEAR) Urine pH 8.0 (5-6) Ur Specific [place] 1.010 (1.005-1.025) Urine Protein 100 (Negative) Urine Ketones NEGATIVE (NEGATIVE) Urine Blood NEGATIVE (0-5) Juan/ul Urine Nitrite NEGATIVE (NEGATIVE) Urine Bilirubin NEGATIVE (NEGATIVE) Urine Urobilinogen NEGATIVE (0-1) mg/dL Ur Leukocyte Esterase NEGATIVE (NEGATIVE) Urine WBC (Auto) 3-5 (0-5) /HPF Urine RBC (Auto) NONE (0-2) /HPF U Epithel Cells (Auto) NONE (FEW) /HPF Urine Bacteria (Auto) NONE (NEGATIVE) /HPF Urine Mucus (Auto) SLIGHT (NEGATIVE) /HPF Urine Culture Reflexed NO (NO) Urine Glucose NEGATIVE (NEGATIVE) mg/dL Urine HCG, Qual NEGATIVE (Negative) Urine Opiates Level POSITIVE (NEGATIVE) Ur Methadone NEGATIVE (NEGATIVE) Urine Barbiturates NEGATIVE (NEGATIVE) Ur Phencyclidine (PCP) NEGATIVE (NEGATIVE) Urine Amphetamine NEGATIVE (NEGATIVE) U Benzodiazepine Level NEGATIVE (NEGATIVE) Urine Cocaine NEGATIVE (NEGATIVE) Urine Marijuana (THC) NEGATIVE (NEGATIVE) Influenza Type A Ag (NEGATIVE) Influenza Type B Ag (NEGATIVE) RSV (PCR) (Negative) SARS-CoV-2 (PCR) (NEGATIVE) 03/27/20 Range/Units 22:30 WBC (4.0-10.5) K/mm3 RBC (4.1-5.4) M/mm3 Hgb (12.0-16.0) gm/dl Hct (35-47) % MCV (78-100) fl MCH (26-32) pg MCHC (32-36) g/dl RDW (11.5-14.0) % Plt Count (150-450) K/mm3 MPV (7.5-11.0) fl Gran % (36.0-66.0) % Eos # (Auto) (0-0.5) Absolute Lymphs (auto) (1.0-4.6) Absolute Monos (auto) (0.0-1.3) Lymphocytes % (24.0-44.0) % Monocytes % (0.0-12.0) % Eosinophils % (0.00-5.0) % Basophils % (0.0-0.4) % Absolute Granulocytes (1.4-6.9) Basophils # (0-0.4) Sodium (137-145) mmol/L Potassium (3.5-5.1) mmol/L Chloride (98-107) mmol/L Carbon Dioxide (22-30) mmol/L Anion Gap (5-15) MEQ/L BUN (7-17) mg/dL Creatinine (0.52-1.04) mg/dL Estimated GFR ML/MIN Glucose (74-106) mg/dL Lactic Acid (0.4-2.0) Calcium (8.4-10.2) mg/dL Total Bilirubin (0.2-1.3) mg/dL AST (14-36) U/L ALT (0-35) U/L Alkaline Phosphatase (38-126) U/L Troponin I < 0.012 (0.000-0.034) ng/mL NT-Pro-B Natriuret Pep (0-450) pg/mL Serum Total Protein (6.3-8.2) g/dL Albumin (3.5-5.0) g/dL Urine Color (YELLOW) Urine Appearance (CLEAR) Urine pH (5-6) Ur Specific [place] (1.005-1.025) Urine Protein (Negative) Urine Ketones (NEGATIVE) Urine Blood (0-5) Juan/ul Urine Nitrite (NEGATIVE) Urine Bilirubin (NEGATIVE) Urine Urobilinogen (0-1) mg/dL Ur Leukocyte Esterase (NEGATIVE) Urine WBC (Auto) (0-5) /HPF Urine RBC (Auto) (0-2) /HPF U Epithel Cells (Auto) (FEW) /HPF Urine Bacteria (Auto) (NEGATIVE) /HPF Urine Mucus (Auto) (NEGATIVE) /HPF Urine Culture Reflexed (NO) Urine Glucose (NEGATIVE) mg/dL Urine HCG, Qual (Negative) Urine Opiates Level (NEGATIVE) Ur Methadone (NEGATIVE) Urine Barbiturates (NEGATIVE) Ur Phencyclidine (PCP) (NEGATIVE) Urine Amphetamine (NEGATIVE) U Benzodiazepine Level (NEGATIVE) Urine Cocaine (NEGATIVE) Urine Marijuana (THC) (NEGATIVE) Influenza Type A Ag (NEGATIVE) Influenza Type B Ag (NEGATIVE) RSV (PCR) (Negative) SARS-CoV-2 (PCR) (NEGATIVE) - Radiology Impressions Radiology Exams & Impressions: Radiology Procedures Category Date Time Status CHEST WITH CONTRAST [CT] Stat Exams 03/27/20 18:32 Taken - Other Procedures and Tests Respiratory Therapy 03/28/20 00:06 Oxygen Nasal Cannula 4 lpm 03/28/20 00:54 Respiratory Therapy Assessment DAILY Assessment/Plan (1) Lung malignancy Current Visit: Yes Status: Acute Qualifiers: Laterality: unspecified laterality Lung location: unspecified part of lung Qualified Code(s): C34.90 - Malignant neoplasm of unspecified part of unspeci fied bronchus or lung Assessment & Plan: Chief Complaint Diagnosis PNA lung ca Allergies Allergy/AdvReac Type Severity Reaction Status Date / Time levothyroxine Allergy Verified 03/28/20 00:52 Vital Signs (Last 24 hours) Temp Pulse Resp BP BP Pulse Ox 03/28/20 07:29 98.2 F 103 H 20 110/58 93 L 03/28/20 06:45 105 H 24 90 L 03/28/20 04:51 22 03/28/20 04:00 98.9 F 95 H 16 107/68 90 L 03/28/20 00:59 98.4 F 115 H 24 109/68 118/73 90 L 03/28/20 00:54 98.4 F 115 H 24 109/68 90 L 03/28/20 00:53 98.4 F 115 H 24 109/68 90 L 03/28/20 00:51 106 H 24 91 L 03/28/20 00:08 110 H 20 118/73 93 L 03/27/20 23:08 111 H 108/76 95 03/27/20 22:14 110 H 118/76 98 03/27/20 21:22 117 H 110/72 97 03/27/20 20:34 116 H 95/77 95 03/27/20 19:27 92 L 03/27/20 19:09 117 H 18 99/54 92 L 03/27/20 18:16 20 92 L 03/27/20 18:11 98.3 F 129 H 22 104/76 85 L Home Medications Medication Instructions Recorded Confirmed Last Taken Type Albuterol 2.5 mg/3 ml Neb 2.5 mg IH Q4-6HPRN PRN 03/27/20 03/27/20 03/27/20 History [Proventil 2.5 mg/3 ml Neb] Alprazolam 0.25 mg [xanAX 0.25 0.25 mg PO TID PRN 03/27/20 03/27/20 03/27/20 History MG] Benzonatate 200 mg PO TID PRN 03/27/20 03/27/20 03/27/20 History Budesonide 0.5 mg/2 ml 0.5 mg IH BID 03/27/20 03/27/20 03/27/20 History [Pulmicort 0.5 mg/2 ml Respules] Cyclobenzaprine HCl 5 mg PO TIDPRN 03/27/20 03/27/20 03/27/20 History Fluconazole [Diflucan] 200 mg PO DAILY 03/27/20 03/27/20 03/26/20 History Fluoxetine HCl [Prozac] 40 mg PO DAILY 03/27/20 03/27/20 03/27/20 History Loratadine 10 mg [Claritin 10 10 mg PO DAILY 03/27/20 03/27/20 03/27/20 History mg] Metoprolol Succinate 50 mg 25 mg PO DAILY 03/27/20 03/28/20 Unknown History [Toprol Xl 50 MG] Omeprazole 40 mg PO DAILY 03/27/20 03/27/20 03/27/20 History Oxycodone HCl 30 mg PO Q4-6HPRN PRN 03/27/20 03/28/20 03/27/20 History Oxycodone HCl [Oxycontin] 60 mg PO BID 03/27/20 03/27/20 03/27/20 History Prednisone 10 mg [Deltasone 10 10 mg PO DAILY 03/27/20 03/27/20 03/27/20 History mg] Promethazine HCl/Codeine 5 ml PO Q6H PRN PRN 03/27/20 03/27/20 03/27/20 History [Prometh-Codein 6.25-10 mg/5 ml] fentaNYL [Duragesic] 75 mcg TD UD 03/27/20 03/27/20 03/27/20 History ondansetron HCL [Zofran] 8 mg PO Q6H PRN PRN 03/27/20 03/27/20 03/27/20 History Current Medications Generic Name Dose Route Start Last Admin Trade Name Freq PRN Reason Stop Dose Admin Acetaminophen 650 mg 03/28/20 00:06 Tylenol 325 Mg PO 04/27/20 00:05 Q4H PRN PRN PAIN, FEVER, HEADACHE Albuterol Sulfate 2.5 mg 03/28/20 00:47 03/28/20 04:51 Proventil 2.5 Mg/3 Ml Neb IH 04/27/20 00:46 2.5 mg Q4H PRN PRN Administration SHORTNESS OF BREATH/WHEEZING Alprazolam 0.25 mg 03/28/20 07:30 Xanax 0.25 Mg PO 04/27/20 07:29 TID PRN KAELYN Benzonatate 200 mg 03/28/20 07:40 Tessalon Perles 100 Mg PO 04/27/20 07:39 TID PRN PRN Budesonide 0.5 mg 03/28/20 07:00 03/28/20 06:41 Pulmicort 0.5 Mg/2 Ml Respules IH 04/27/20 06:59 0.5 mg BIDRT KAELYN Administration Cyclobenzaprine HCl 5 mg 03/28/20 07:41 Cyclobenzaprine 10 Mg PO 04/27/20 07:40 TIDPRN PRN Fentanyl 75 mcg 03/30/20 07:30 Duragesic 75 Mcg Patch TOP 04/04/20 07:29 Q3D KAELYN Fluconazole 200 mg 03/28/20 10:00 Diflucan 100 Mg PO 04/27/20 09:59 DAILY KAELYN Fluoxetine HCl 40 mg 03/28/20 10:00 Prozac 20 Mg PO 04/27/20 09:59 DAILY KAELYN Sodium Chloride 1,000 mls @ 50 mls/hr 03/28/20 00:06 03/28/20 02:08 Sodium Chloride 0.9% 1000 Ml IV 04/27/20 00:05 50 mls/hr .Q20H KAELYN Administration Ceftriaxone Sodium/Dextrose 1 g in 50 mls @ 100 mls/hr 03/28/20 10:00 Rocephin 1 Gm-D5w 50 Ml Bag IV 04/27/20 09:59 Q24H22 KAELYN Azithromycin 500 mg in 250 mls @ 250 mls/hr 03/28/20 07:30 03/28/20 07:34 Zithromax 500 Mg/ 250 Ml Nacl Premix IV 04/27/20 07:29 250 mls/hr Q24H10 KAELYN Administration Loratadine 10 mg 03/28/20 10:00 Claritin 10 Mg PO 04/27/20 09:59 DAILY KAELYN Metoprolol Succinate 25 mg 03/28/20 10:00 Toprol Xl 50 Mg PO 04/27/20 09:59 DAILY KAELYN Miscellaneous Information 0 each 03/28/20 07:47 Medication Intervention 04/27/20 07:46 .RN TO CHECK WITH PT PRN Miscellaneous Information 0 each 03/28/20 07:54 Medication Intervention 04/27/20 07:53 .RN TO CHECK WITH DR ROSA Ondansetron HCl 8 mg 03/28/20 07:44 Zofran Odt 4 Mg PO 04/27/20 07:43 Q6H PRN PRN NAUSEA Pantoprazole Sodium 40 mg 03/28/20 10:00 Protonix 40mg Tablet PO 04/27/20 09:59 DAILY KAELYN Prednisone 10 mg 03/28/20 10:00 Deltasone 10 Mg PO 04/27/20 09:59 DAILY KAELYN Sodium Chloride 3 ml 03/28/20 07:22 Sodium Chloride 3 Ml Ud Nebules IH 04/27/20 07:21 PRN PRN Discontinued Medications Generic Name Dose Route Start Last Admin Trade Name Freq PRN Reason Stop Dose Admin Sodium Chloride 1,000 mls @ 999 mls/hr 03/27/20 18:30 03/27/20 20:12 Sodium Chloride 0.9% 1000 Ml IV 03/27/20 19:30 Infused .Q1H1M STA Infusion Sodium Chloride Confirm 03/27/20 18:42 Sodium Chloride 0.9% 1000 Ml Administered 03/27/20 18:43 Dose 1,000 mls @ ud .ROUTE .STK-MED ONE Ceftriaxone Sodium/Dextrose 1 g in 50 mls @ 100 mls/hr 03/27/20 23:10 03/27/20 23:21 Rocephin 1 Gm-D5w 50 Ml Bag IV 03/27/20 23:39 100 mls/hr STAT STA 100 mls/hr Administration Ceftriaxone Sodium/Dextrose Confirm 03/27/20 23:20 Rocephin 1 Gm-D5w 50 Ml Bag Administered 03/27/20 23:21 Dose 1 g in 50 mls @ ud IV .STK-MED ONE Non-Formulary Medication 60 mg 03/28/20 10:00 Oxycodone Hcl [Oxycontin] PO 04/27/20 09:59 BID KAELYN Sodium Chloride Confirm 03/28/20 06:44 Sodium Chloride 3 Ml Ud Nebules Administered 03/28/20 06:45 Dose 3 ml IH .STK-MED ONE Intake & Output (Last 24 hours) 03/25/20 03/26/20 03/27/20 03/28/20 11:59 11:59 11:59 11:59 Intake Total 480 Output Total 800 Balance -320 Weight 74.7 kg Microbiology Results (Last 24 hours) 03/27/20 19:20 Blood Blood Culture Gram Stain - Pending 03/27/20 19:20 Blood Blood Culture - Pending 03/27/20 19:10 Blood Blood Culture Gram Stain - Pending 03/27/20 19:10 Blood Blood Culture - Pending Laboratory Results (Last 24 hours) 03/27/20 03/27/20 03/27/20 22:30 20:34 20:34 WBC RBC Hgb Hct MCV MCH MCHC RDW Plt Count MPV Gran % Eos # (Auto) Absolute Lymphs (auto) Absolute Monos (auto) Lymphocytes % Monocytes % Eosinophils % Basophils % Absolute Granulocytes Basophils # Sodium Potassium Chloride Carbon Dioxide Anion Gap BUN Creatinine Estimated GFR Glucose Lactic Acid Calcium Total Bilirubin AST ALT Alkaline Phosphatase Troponin I < 0.012 NT-Pro-B Natriuret Pep Serum Total Protein Albumin Urine Color Urine Appearance Urine pH Ur Specific [place] Urine Protein Urine Ketones Urine Blood Urine Nitrite Urine Bilirubin Urine Urobilinogen Ur Leukocyte Esterase Urine WBC (Auto) Urine RBC (Auto) U Epithel Cells (Auto) Urine Bacteria (Auto) Urine Mucus (Auto) Urine Culture Reflexed Urine Glucose Urine HCG, Qual NEGATIVE Urine Opiates Level POSITIVE Ur Methadone NEGATIVE Urine Barbiturates NEGATIVE Ur Phencyclidine (PCP) NEGATIVE Urine Amphetamine NEGATIVE U Benzodiazepine Level NEGATIVE Urine Cocaine NEGATIVE Urine Marijuana (THC) NEGATIVE Influenza Type A Ag Influenza Type B Ag RSV (PCR) SARS-CoV-2 (PCR) 03/27/20 03/27/20 03/27/20 20:34 19:24 18:51 WBC RBC Hgb Hct MCV MCH MCHC RDW Plt Count MPV Gran % Eos # (Auto) Absolute Lymphs (auto) Absolute Monos (auto) Lymphocytes % Monocytes % Eosinophils % Basophils % Absolute Granulocytes Basophils # Sodium Potassium Chloride Carbon Dioxide Anion Gap BUN Creatinine Estimated GFR Glucose Lactic Acid 1.7 Calcium Total Bilirubin AST ALT Alkaline Phosphatase Troponin I NT-Pro-B Natriuret Pep Serum Total Protein Albumin Urine Color YELLOW Urine Appearance CLEAR Urine pH 8.0 Ur Specific [place] 1.010 Urine Protein 100 Urine Ketones NEGATIVE Urine Blood NEGATIVE Urine Nitrite NEGATIVE Urine Bilirubin NEGATIVE Urine Urobilinogen NEGATIVE Ur Leukocyte Esterase NEGATIVE Urine WBC (Auto) 3-5 Urine RBC (Auto) NONE U Epithel Cells (Auto) NONE Urine Bacteria (Auto) NONE Urine Mucus (Auto) SLIGHT Urine Culture Reflexed NO Urine Glucose NEGATIVE Urine HCG, Qual Urine Opiates Level Ur Methadone Urine Barbiturates Ur Phencyclidine (PCP) Urine Amphetamine U Benzodiazepine Level Urine Cocaine Urine Marijuana (THC) Influenza Type A Ag NEGATIVE Influenza Type B Ag NEGATIVE RSV (PCR) NEGATIVE SARS-CoV-2 (PCR) NEGATIVE 03/27/20 03/27/20 03/27/20 18:50 18:50 18:50 WBC RBC Hgb Hct MCV MCH MCHC RDW Plt Count MPV Gran % Eos # (Auto) Absolute Lymphs (auto) Absolute Monos (auto) Lymphocytes % Monocytes % Eosinophils % Basophils % Absolute Granulocytes Basophils # Sodium 132 L Potassium 3.2 L Chloride 82 L Carbon Dioxide 41 H Anion Gap 12.2 BUN 10 Creatinine 0.46 L Estimated GFR > 60.0 Glucose 168 H Lactic Acid Calcium 7.8 L Total Bilirubin 0.30 AST 32 ALT 16 Alkaline Phosphatase 99 Troponin I < 0.012 NT-Pro-B Natriuret Pep 549 H Serum Total Protein 6.3 Albumin 2.9 L Urine Color Urine Appearance Urine pH Ur Specific [place] Urine Protein Urine Ketones Urine Blood Urine Nitrite Urine Bilirubin Urine Urobilinogen Ur Leukocyte Esterase Urine WBC (Auto) Urine RBC (Auto) U Epithel Cells (Auto) Urine Bacteria (Auto) Urine Mucus (Auto) Urine Culture Reflexed Urine Glucose Urine HCG, Qual Urine Opiates Level Ur Methadone Urine Barbiturates Ur Phencyclidine (PCP) Urine Amphetamine U Benzodiazepine Level Urine Cocaine Urine Marijuana (THC) Influenza Type A Ag Influenza Type B Ag RSV (PCR) SARS-CoV-2 (PCR) 03/27/20 18:50 WBC 8.8 RBC 3.01 L Hgb 9.0 L Hct 30.3 L MCV 100.7 H MCH 29.9 MCHC 29.7 L RDW 14.8 H Plt Count 377 MPV 9.1 Gran % 72.7 H Eos # (Auto) 0.06 Absolute Lymphs (auto) 0.94 L Absolute Monos (auto) 1.39 H Lymphocytes % 10.7 L Monocytes % 15.8 H Eosinophils % 0.7 Basophils % 0.1 Absolute Granulocytes 6.39 Basophils # 0.01 Sodium Potassium Chloride Carbon Dioxide Anion Gap BUN Creatinine Estimated GFR Glucose Lactic Acid Calcium Total Bilirubin AST ALT Alkaline Phosphatase Troponin I NT-Pro-B Natriuret Pep Serum Total Protein Albumin Urine Color Urine Appearance Urine pH Ur Specific [place] Urine Protein Urine Ketones Urine Blood Urine Nitrite Urine Bilirubin Urine Urobilinogen Ur Leukocyte Esterase Urine WBC (Auto) Urine RBC (Auto) U Epithel Cells (Auto) Urine Bacteria (Auto) Urine Mucus (Auto) Urine Culture Reflexed Urine Glucose Urine HCG, Qual Urine Opiates Level Ur Methadone Urine Barbiturates Ur Phencyclidine (PCP) Urine Amphetamine U Benzodiazepine Level Urine Cocaine Urine Marijuana (THC) Influenza Type A Ag Influenza Type B Ag RSV (PCR) SARS-CoV-2 (PCR) Orders (Last 24 hours) Category Date Time Status Bedrest TOLERATED Activity 03/28/20 00:06 Active Code Status Order ROUTINE Care 03/28/20 00:06 Active EKG-ER Only STAT Care 03/27/20 18:30 Completed IV Insertion STAT Care 03/27/20 18:30 Completed Miscellaneous Nursing Order ROUTINE Care 03/28/20 00:59 Active Miscellaneous Nursing Order ROUTINE Care 03/28/20 01:54 Active Miscellaneous Nursing Order ROUTINE Care 03/28/20 02:[address] in Observation ROUTINE Care 03/28/20 00:06 Active Telemetry PROTOCOL Care 03/28/20 00:06 Active Weight,Daily 0600 Care 03/28/20 00:06 Active Clear Liquid Diet 03/28/20 Breakfast Active CHEST WITH CONTRAST [CT] Stat Exams 03/27/20 18:32 Taken BLOOD CULTURE Stat Lab 03/27/20 19:20 Received CBC W DIFF Stat Lab 03/27/20 18:50 Completed CMP Stat Lab 03/27/20 18:50 Completed HCG,QUALITATIVE URINE Stat Lab 03/27/20 20:34 Completed Lactic Acid Stat Lab 03/27/20 18:51 Completed NT PRO BNP Stat Lab 03/27/20 18:50 Completed TROPONIN Q3H Lab 03/27/20 18:50 Completed TROPONIN Q3H Lab 03/27/20 22:30 Completed UA W/RFX UR CULTURE Stat Lab 03/27/20 20:34 Completed Urine Triage Profile Stat Lab 03/27/20 20:34 Completed Acetaminophen 325 mg [Tylenol 325 mg] Med 03/28/20 00:06 Active 650 mg PO Q4H PRN PRN Albuterol 2.5 mg/3 ml Neb [Proventil 2.5 mg/3 ml Neb Med 03/28/20 00:47 Active ] 2.5 mg IH Q4H PRN PRN Alprazolam 0.25 mg [xanAX 0.25 MG] Med 03/28/20 07:30 Active 0.25 mg PO TID PRN Azithromycin 500 mg/250 ml [Zithromax 500 MG/ 250 ML Med 03/28/20 07:30 Active NaCl Premix] 500 mg in 250 ml IV Q24H10 Benzonatate 100 mg [Tessalon Perles 100 MG] Med 03/28/20 07:40 Active 200 mg PO TID PRN PRN Budesonide 0.5 mg/2 ml [Pulmicort 0.5 mg/2 ml Med 03/28/20 07:00 Active Respules] 0.5 mg IH BIDRT Ceftriaxone 1 GM/50 ML PREMIX* [ROCEPHIN 1 Gm-D5w 50 ml Med 03/28/20 10:00 Active Bag] 1 g in 50 ml IV Q24H22 Ceftriaxone 1 GM/50 ML PREMIX* [ROCEPHIN 1 Gm-D5w 50 ml Med 03/27/20 23:10 Discontinued Bag] 1 g in 50 ml IV STAT Ceftriaxone 1 GM/50 ML PREMIX* [ROCEPHIN 1 Gm-D5w 50 ml Med 03/27/20 23:20 Discontinued Bag] 1 g in 50 ml IV UD Cyclobenzaprine HCl 10 mg [Cyclobenzaprine 10 MG] Med 03/28/20 07:41 Active 5 mg PO TIDPRN PRN Fentanyl 75Mcg Patch [Duragesic 75 MCG Patch] Med 03/30/20 07:30 Active 75 mcg TOP Q3D Fluconazole 100 mg [Diflucan 100 MG] Med 03/28/20 10:00 Active 200 mg PO DAILY Fluoxetine HCl 20 mg [Prozac 20 MG] Med 03/28/20 10:00 Active 40 mg PO DAILY Loratadine 10 mg [Claritin 10 mg] Med 03/28/20 10:00 Active 10 mg PO DAILY Medication Intervention Med 03/28/20 07:54 Active 0 each MC .RN TO CHECK WITH DR ROSA Medication Intervention Med 03/28/20 07:47 Active 0 each MC .RN TO CHECK WITH PT PRN Metoprolol Succinate 50 mg [Toprol Xl 50 MG] Med 03/28/20 10:00 Active 25 mg PO DAILY NaCl 0.9% 1000 ml [Sodium Chloride 0.9% 1000 ML] 1,000 Med 03/27/20 18:42 Discontinued ml .ROUTE UD NaCl 0.9% 1000 ml [Sodium Chloride 0.9% 1000 ML] ,000 Med 03/28/20 00:06 Active ml IV 50 mls/hr NaCl 0.9% 1000 ml [Sodium Chloride 0.9% 1000 ML] ,000 Med 03/27/20 18:30 Discontinued ml IV 999 mls/hr NaCl 3Ml For Inhalation [Sodium Chloride 3 ML UD Med 03/28/20 06:44 Discontinued NEBULES] 3 ml IH .STK-MED ONE NaCl 3Ml For Inhalation [Sodium Chloride 3 ML UD Med 03/28/20 07:22 Active NEBULES] 3 ml IH PRN PRN Ondansetron ODT 4 MG [Zofran Odt 4 mg] Med 03/28/20 07:44 Active 8 mg PO Q6H PRN PRN Oxycodone HCl [Oxycontin] Med 03/28/20 10:00 Discontinued 60 mg PO BID PANTOPRAZOLE 40 mg Tablet [Protonix 40MG Tablet] Med 03/28/20 10:00 Active 40 mg PO DAILY Prednisone 10 mg [Deltasone 10 mg] Med 03/28/20 10:00 Active 10 mg PO DAILY Oxygen Nasal Cannula 4 lpm RT 03/28/20 00:06 Active Pulse Oximetry .spot check RT 03/28/20 00:55 Active Respiratory Therapy Assessment DAILY RT 03/28/20 00:54 Active Respiratory Therapy Consult ROUTINE RT 03/28/20 00:06 Completed Code(s): C34.90 - MALIGNANT NEOPLASM OF UNSP PART OF UNSP BRONCHUS OR LUNG (2) Pneumonia Current Visit: Yes Status: Acute Qualifiers: Pneumonia type: due to unspecified organism Laterality: unspecified laterality Lung location: unspecified part of lung Qualified Code(s): J18.9 - Pneumonia, unspecified organism Code(s): J18.9 - PNEUMONIA, UNSPECIFIED ORGANISM
--- NOTE | 2020-03-28 09:17 | XRAY ---
Indication: Cough, short of breath, tachycardia, and fever. History lung cancer. Multiple contiguous axial images obtained through the chest using 1 cc Isovue 370 contrast and PE protocol. Comparison: None There is good opacification of the pulmonary arteries to includes the lobar and segmental branches. No pulmonary embolus. Heart is not enlarged. Right Port-A-Cath with tip in the right atrium. Aorta is normal in course and caliber. A few prominent paratracheal/subcarinal lymph nodes, largest subcarinal measuring 1.3 x 2.4 cm. Lungs demonstrates diffuse bilateral consolidating/nonconsolidating airspace opacities, left greater than right. No effusion. Incidental left hemidiaphragm elevation. Bony thorax intact with minimal degenerative changes throughout the spine, sternotomy wires, and multiple old bilateral rib fractures. Limited upper abdomen demonstrates 13.7 cm splenomegaly, cholecystectomy clips, and periaortic surgical clips. Impression: 1. Negative pulmonary embolus. 2. Diffuse bilateral consolidating/nonconsolidating airspace disease. 3. Prominent nonspecific mediastinal lymph nodes. 4. Incidental splenomegaly, left hemidiaphragm elevation, and chronic bony findings. Comment: Preliminary interpretation was made by [facility]. No critical discrepancy.
[2020-03-28] MEDS: Prozac 20 MG PO SCH (09:54)
[2020-03-28] MEDS: Diflucan 100 MG PO SCH (09:54)
[2020-03-28] MEDS: DELTASONE 10 MG PO SCH (09:54)
[2020-03-28] MEDS: CLARITIN 10 MG PO SCH (09:54)
[2020-03-28] MEDS: Protonix 40MG Tablet PO SCH (09:54)
[2020-03-28] MEDS: Toprol Xl 50 MG PO SCH (09:54)
[2020-03-28] MEDS ORDERED: NON-FORMULARY ITEM (Omeprazole [Omeprazole] 40 MG) PO SCH (10:00)
[2020-03-28] MEDS ORDERED: ROCEPHIN 1 Gm-D5w 50 ml Bag** 1 G/50 ML IVPB IV SCH (10:00)
[2020-03-28] MEDS ORDERED: NON-FORMULARY ITEM (Fluoxetine Hcl [Prozac] 40 MG) PO SCH (10:00)
[2020-03-28] MEDS ORDERED: OXYCODONE HCL 60 MG PO SCH (10:00)
[2020-03-28] MEDS ORDERED: FLUCONAZOLE 200 MG PO SCH (10:00)
[2020-03-28] MEDS: Tessalon Perles 100 MG PO PRN (11:43)
[2020-03-28] MEDS ORDERED: SUBLIMAZE 100 MCG/2 ML IV ONE (11:55)
[2020-03-28] MEDS: POTASSIUM CHLORIDE 20 mEq IN WATER 100ML 20 MEQ/100 ML BAG IV SCH ×2 (12:08→14:20)
--- NOTE | 2020-03-28 12:12 | PCM.BN ---
Brief Admission Note - Admission Note Brief Admisson Note: Patient admitted from ER @ 03/28/20 00:02 to MED SURG.She was on her way to [facility] ER from [place] to try to reconnect with her previous Oncologist Dr Braun but became tachycardic and dyspneic and presented to [facility] ER. Medication List reviewed and reconciled. An has an extended history which is taken from patient's Mother ,Cece at [phone]. 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 She was followed at [facility] by Dr Zen Braun and OB team and had Surgical tx - removal of a "football sized tumor" after she delivered a healthy baby boy in 2008. She was followed at the [facility] in [place] until they stopped seeing out of state p. Dr Jessica Shin is her PCP in [place], [place] who referred patient to Dr Mariya Aaron who gave 2 rounds of chemo in NOV 2019 and patient refused further chemo because of the side effects. Mom states patient has been sick since July 2019 with 'Chronic pneumonia" and is on continuous home O2 at 4-5L. She chokes on food and crushes all of her meds ,had a bad choking spell last week and developed fever 101.She was recently in [facility] discharged at the end of February 2020 and [facility] prior to that. She has NEVER tested positive for Covid per mom. Patient also has Lupus and become disoriented when it flares up.Plan is to transfer patient to a higher level of care. I am awaiting a call back from Oncologist Dr Zen Braun.
[2020-03-28] MEDS ORDERED: PATIENT OWN MEDICATION PO PRN (12:40)
[2020-03-28] MEDS: PATIENT OWN MEDICATION PO PRN ×2 (15:52→20:30)
[2020-03-28 18:27] LABS: Hematocrit 28.8 % (35-47); Hemoglobin 8.3 gm/dl (12.0-16.0); Mean Cell Volume 102.9 fl (78-100); Mean Corpuscular Hemoglobin 29.6 pg (26-32); Mean Corpuscular Hgb Concent. 28.8 g/dl (32-36); Mean Platelet Volume 8.8 fl (7.5-11.0); Platelet Count 330 K/mm3 (150-450); Red Cell Distribution Width 14.8 % (11.5-14.0); White Blood Count 9.1 K/mm3 (4.0-10.5)
[2020-03-28 18:49] LABS: ALBUMIN 2.8 g/dL (3.5-5.0); ALKALINE PHOSPHATASE 102 U/L (38-126); BLOOD UREA NITROGEN 10 mg/dL (7-17); CHLORIDE 88 mmol/L (98-107); Calcium 7.6 mg/dL (8.4-10.2); Creatinine 1 0.42 mg/dL (0.52-1.04); EST GLOMERULAR FILTRATION RATE > 60.0 ML/MIN; Glucose 103 mg/dL (74-106); SGOT/AST 35 U/L (14-36); SGPT/ALT 13 U/L (0-35); SODIUM 133 mmol/L (137-145); Total Protein 6.2 g/dL (6.3-8.2)
[2020-03-28 18:55] LABS: Carbon Dioxide 39 mmol/L (22-30)
[2020-03-28 19:00] LABS: ANION GAP 10 MEQ/L (5-15)
[2020-03-28 19:38] LABS: TSH, 3RD Generation 2.32 mIU/L (0.47-4.68)
[2020-03-28] MEDS: ROCEPHIN 1 Gm-D5w 50 ml Bag** 1 G/50 ML IVPB IV SCH (22:32)
[2020-03-29] MEDS: PROVENTIL 2.5 MG/3 ML NEB IH PRN ×3 (06:30→23:45)
[2020-03-29] MEDS: PULMICORT 0.5 MG/2 ML RESPULES IH SCH ×2 (06:34→19:44)
[2020-03-29] MEDS: PATIENT OWN MEDICATION PO PRN ×3 (07:01→23:01)
--- NOTE | 2020-03-29 09:26 | PCM.NOTE ---
Date and Time: 03/29/20923 OBJECTIVE DATA Vital Signs: Vital Signs - 24 hr Temp Pulse Resp BP Pulse Ox 03/29/20 07:37 99.6 F 120 H 20 105/59 92 L 03/29/20 06:35 118 H 28 H 91 L 03/29/20 04:00 97.8 F 104 H 22 89 L 03/29/20 00:00 98.1 F 104 H 16 100/59 93 L 03/28/20 20:00 97.9 F 125 H 20 106/58 94 L 03/28/20 18:52 103 H 16 91 L 03/28/20 16:00 97.9 F 100 H 18 90/50 91 L 03/28/20 12:00 97.9 F 104 H 20 115/65 90 L 03/28/20 10:03 92 L Oxygen-Last 24 hours Oxygen Flowrate (L/min)-RT 4 Oxygen Flowrate (L/min)-RT 4 Pain Assessment - Last Documented Pain Intensity 7 Pain Scale Used 0-10 Pain Scale Intake and Output: Intake & Output 03/26/20 03/27/20 03/28/20 03/29/20 11:59 11:59 11:59 11:59 Intake Total 480 1780 Output Total 800 900 Balance -320 880 Weight 74.7 kg 75.9 kg Lab Results: Lab Results-Last 24 Hours 03/28/20 03/28/20 03/28/20 Range/Units 18:04 18:04 18:04 WBC 9.1 (4.0-10.5) K/mm3 RBC 2.80 L (4.1-5.4) M/mm3 Hgb 8.3 L (12.0-16.0) gm/dl Hct 28.8 L (35-47) % MCV 102.9 H (78-100) fl MCH 29.6 (26-32) pg MCHC 28.8 L (32-36) g/dl RDW 14.8 H (11.5-14.0) % Plt Count 330 (150-450) K/mm3 MPV 8.8 (7.5-11.0) fl Sodium 133 L (137-145) mmol/L Potassium 4.0 D (3.5-5.1) mmol/L Chloride 88 L (98-107) mmol/L Carbon Dioxide 39 H (22-30) mmol/L Anion Gap 10 (5-15) MEQ/L BUN 10 (7-17) mg/dL Creatinine 0.42 L (0.52-1.04) mg/dL Estimated GFR > 60.0 ML/MIN Glucose 103 (74-106) mg/dL Calcium 7.6 L (8.4-10.2) mg/dL Total Bilirubin 0.30 (0.2-1.3) mg/dL AST 35 (14-36) U/L ALT 13 (0-35) U/L Alkaline Phosphatase 102 (38-126) U/L Serum Total Protein 6.2 L (6.3-8.2) g/dL Albumin 2.8 L (3.5-5.0) g/dL Vitamin B12 849 (239-931) pg/mL TSH 3rd Generation 2.320 (0.47-4.68) mIU/L Radiology Exams: Radiology Procedures Category Date Time Status CHEST WITH CONTRAST [CT] Stat Exams 03/27/20 18:32 Completed MODIFIED BARIUM SWALLOW (RAD) [MODIFIED BARIUM SWALLOW Exams 03/29/20 Ordered EXAM] Routine Multi-Disciplinary Progress Notes: Multi-Disciplinary Progress Notes 03/28/20 10:09 Case Management Note by Rosalinda Durán PATIENT TOO LETHARGIC AT THIS TIME TO CONDUCT CASE MANAGEMENT ASSESS. PRIMARY NURSE ASSESSED PATIENT. PER PRIMARY NURSE- DR. GUTIERREZ PLANNING TO TRY TO ARRANGE FOR TRANSFER TO [facility] Initialized on 03/28/20 10:09 - END OF NOTE Assessment/Plan (1) Pneumonia Current Visit: Yes Status: Acute Qualifiers: Pneumonia type: due to unspecified organism Laterality: unspecified laterality Lung location: unspecified part of lung Qualified Code(s): J18.9 - Pneumonia, unspecified organism Assessment & Plan: chart reviewed and d/w RN. pt with metastatic thymoma. has issues with eating/dysphagia/coughing. swallow study is scheduled for tomorrow -official consult to follow -will decide on trach after swallow study results. Code(s): J18.9 - PNEUMONIA, UNSPECIFIED ORGANISM
[2020-03-29] MEDS: Prozac 20 MG PO SCH (11:01)
[2020-03-29] MEDS: Diflucan 100 MG PO SCH (11:02)
[2020-03-29] MEDS: Protonix 40MG Tablet PO SCH (11:02)
[2020-03-29] MEDS: DELTASONE 10 MG PO SCH (11:03)
[2020-03-29] MEDS: CLARITIN 10 MG PO SCH (11:03)
[2020-03-29] MEDS: Zithromax 500 MG/ 250 ML NaCl Premix 500 MG/250 ML IVPB IV SCH (11:07)
[2020-03-29] MEDS: Toprol Xl 50 MG PO SCH (11:07)
--- NOTE | 2020-03-29 15:05 | CONS ---
CONSULT DATE: 03/29/2020 REASON FOR CONSULT: Evaluation of abnormal CT scan, shortness of breath. The history is obtained from reviewing extensive records available on chart from previous hospitalizations and discussion with patient. The patient is groggy, sleepy and hard to understand. She is able to add very minimal to the history. HISTORY: Miss Benz is a 40 year-old woman with history of metastatic stage IV thymoma, having undergone multiple surgeries and chemotherapy, who has been experiencing what appears to be declining of her health. The patient supposedly was hospitalized for extended period of time at [facility]. She recently underwent bronchoscopy where is grew Alana albicans and was discharged home and was also seen in [place]. She has now been admitted to [facility] with complaints of shortness of breath. A CT chest performed had shown multi-lobar infiltrates consistent with pneumonia. Unfortunately no previous films are at this hospital for comparison. I personally reviewed the CT that showed multi-lobar patchy infiltrates particularly involving the left lower lobe. The patient's recent record from [facility] also states that she has been experiencing esophageal stricture with dysphagia, esophageal Candidiasis causing aspiration pneumonia and pseudomonas pneumonia. There is also history of rib fracture, bilateral osteonecrosis of hip, degenerative joint disease, chronic hypoxemia on home O2, history of lupus versus fibromyalgia as well. The patient does have reduced effort tolerance. She has chronic cough with minimally productive sputum. She has been treated with antibiotics. PAST MEDICAL HISTORY: History of thymus cancer diagnosed initially in 2008. Congestive heart failure. Fibromyalgia. Hip pain. Metastatic lung cancer. Lupus. Pneumonitis. Vertigo. PAST SURGICAL HISTORY: Left hip surgery for hip replacement October 2015. History of thymus cancer diagnosed initially in 2008 and the patient had surgery and chemotherapy. She had bronchoscopy on 03/07/2020. 2008. Cholecystectomy 2012. Eye surgery 2010. Joint replacement. Laparoscopy 2007. Laparotomy 2008, 2013 and September 2018. EGD 2018 and 2019. MEDICATIONS: Current medications are reviewed. Outpatient medications reviewed and consist of Zithromax, Proventil, Xanax, Tessalon Perles, Pulmicort, Rocephin, Duragesic, Toradol, xylocaine, Claritin, Toprol XL, Prilosec, OxyIR, oxycontin, potassium, prednisone taper. ALLERGIES: CYMBALTA. CELEBREX. LEVOTHYROXINE (CONFUSION). PHYSICAL EXAMINATION: This is a middle aged woman who is groggy, confused with slurred speech. Vital signs noted. HEENT: Normocephalic. Oral exam limited. NECK: Short, supple. CVS: First and second heart sounds are normal, regular, rhythmic. RESPIRATORY: Shows diminished breath sounds. Crackles are heard bibasilar. ABDOMEN: Soft. No edema is noted. LABORATORY DATA AND TESTS: Blood cultures are negative. TSH 2.3. Sodium 133, potassium 4.0, chloride 88, bicarb 39, glucose 103, BUN 10, creatinine 0.4. White count 9.1, hemoglobin 8.3, hematocrit 29, PLT 330,000. Chest x-ray and CT chest noted. ASSESSMENT: This is a 40 year old woman admitted with: 1) Multi-lobar pneumonia. It appears to be possibly from either aspiration and/or immunocompromised status. In addition, possibly the patient has esophageal stricture documented which may be adding to aspiration as well. 2) Hypoxemia. 3) Metastatic thymoma having undergone thoracotomy and treated with chemotherapy currently not on any active medication regimen. 4) Comorbid as listed above. RECOMMENDATIONS: It appears as though the patient's extensive pulmonary problems and malignancy history has been treated by her regular oncologist at [facility]. It would be only prudent that the patient be transferred to that facility. It appears that her treatment may be palliative in nature in which case palliative care approach may also be appropriate although at this point instead of re-establishing new lines of therapy, may just be advisable to transfer the patient previous physicians care for continuity of care. In the meantime, I agree with continuation of antibiotics and other supportive care. Her prognosis appears poor. I will be available if needed in the future.
[2020-03-29] MEDS ORDERED: Mucomyst 200 MG/ML ONE (16:39)
[2020-03-29] MEDS ORDERED: xanAX 0.25 MG PO PRN (17:00)
--- NOTE | 2020-03-29 17:04 | PCM.NOTE ---
Date and Time: 03/29/201656 Subjective Assessment: Patient c/o coughing very hard fighting to bring up thick mucus. Pain 10/10 during these coughing fits right mid-posterior rib area.Nurse reports she has not given the prn pain meds since this morning as patient has been sleeping alot. Patient states she is aware of the cancer prognosis but her goal is to get strong enough to have some quality time with her 11 yr old son. She has been fighting recurrent pneumonia for the past several months. Recently choked on a pill then developed fever 101 and cough and SOB,just after she had just been discharged from [facility] end of February. I spoke to her Oncologist from [place],Dr Aaron who feels it is best for patient to be evaluated by Dr Braun at [facility] [place] since this is a rare cancer.I spoke to Dr Sanchez and he is reaching out to Dr Dalton at [place], [place] where patient was treated originally. Dr Moe stated that the last round of Chemo in NOV 2019 was effective but patient developed Pneumonitis from this drug. Patient will have Speech Therapy Eval and a Barium swallow to decide if a G-tube is necessary. Dr Braun stated that in Thymoma cancers ,patient's have a weakened immune system and can develop unusual infection. Sputum was collected today while I was at the bedside. C/O migraine headache asked for Imitrex that she has used in the past. Objective Exam General Appearance: moderate distress, lethargy (to wake up then fully awake,alert and orientd) Neurologic Exam: cooperative Skin Exam: warm (pale), dry Respiratory Exam: diminished breath sounds, rhonchi Cardiovascular Exam: tachycardia (regular) Gastrointestinal/Abdomen Exam: soft, normal bowel sounds (nontender) Extremity Exam: other (no edema) OBJECTIVE DATA Vital Signs: Vital Signs - 24 hr Temp Pulse Resp BP Pulse Ox 03/29/20 11:47 98.5 F 106 H 16 103/55 95 03/29/20 07:37 99.6 F 120 H 20 105/59 92 L 03/29/20 06:35 118 H 28 H 91 L 03/29/20 04:00 97.8 F 104 H 22 89 L 03/29/20 00:00 98.1 F 104 H 16 100/59 93 L 03/28/20 20:00 97.9 F 125 H 20 106/58 94 L 03/28/20 18:52 103 H 16 91 L Oxygen-Last 24 hours Oxygen Flowrate (L/min)-RT 4 Oxygen Flowrate (L/min)-RT 4 Pain Assessment - Last Documented Pain Intensity 4 Pain Scale Used 0-10 Pain Scale Intake and Output: Intake & Output 03/27/20 03/28/20 03/29/20 03/30/20 11:59 11:59 11:59 11:59 Intake Total 480 1780 240 Output Total 800 1200 Balance -320 580 240 Weight 74.7 kg 75.9 kg Lab Results: Lab Results-Last 24 Hours 03/28/20 03/28/20 03/28/20 Range/Units 18:04 18:04 18:04 WBC 9.1 (4.0-10.5) K/mm3 RBC 2.80 L (4.1-5.4) M/mm3 Hgb 8.3 L (12.0-16.0) gm/dl Hct 28.8 L (35-47) % MCV 102.9 H (78-100) fl MCH 29.6 (26-32) pg MCHC 28.8 L (32-36) g/dl RDW 14.8 H (11.5-14.0) % Plt Count 330 (150-450) K/mm3 MPV 8.8 (7.5-11.0) fl Sodium 133 L (137-145) mmol/L Potassium 4.0 D (3.5-5.1) mmol/L Chloride 88 L (98-107) mmol/L Carbon Dioxide 39 H (22-30) mmol/L Anion Gap 10 (5-15) MEQ/L BUN 10 (7-17) mg/dL Creatinine 0.42 L (0.52-1.04) mg/dL Estimated GFR > 60.0 ML/MIN Glucose 103 (74-106) mg/dL Calcium 7.6 L (8.4-10.2) mg/dL Total Bilirubin 0.30 (0.2-1.3) mg/dL AST 35 (14-36) U/L ALT 13 (0-35) U/L Alkaline Phosphatase 102 (38-126) U/L Serum Total Protein 6.2 L (6.3-8.2) g/dL Albumin 2.8 L (3.5-5.0) g/dL Vitamin B12 849 (239-931) pg/mL TSH 3rd Generation 2.320 (0.47-4.68) mIU/L Radiology Exams: Radiology Procedures Category Date Time Status CHEST WITH CONTRAST [CT] Stat Exams 03/27/20 18:32 Completed MODIFIED BARIUM SWALLOW EXAM Routine Exams 03/30/20 13:00 Ordered Multi-Disciplinary Progress Notes: Multi-Disciplinary Progress Notes 03/29/20 11:11 Case Management Note by Rosalinda Durán PATIENT ACUTELY ILL, WILL NEED TO SEE WHAT PULMONOGY SAYS AND SURGERY PLANS THEN WILL START TO DISCUSS NEEDS FOR DC Initialized on 03/29/20 11:11 - END OF NOTE Assessment/Plan (1) Pneumonia Current Visit: Yes Status: Acute Qualifiers: Pneumonia type: due to unspecified organism Laterality: bilateral Lung location: unspecified part of lung Qualified Code(s): J18.9 - Pneumonia, u nspecified organism Assessment & Plan: recurrent pneumonia/ illness since July 2019 and hospitalizations for same. Work up for possible aspiration and immunompromised host infections. Discussed with Oncologist ,Dr Braun- orders-mycobacterium fungal culture,AFB stain,gram stain , Tand B cells,Antibodies to [id number]-[id number], Antibody levels [id number]. Shanna at [facility] lab is looking at the send out orders for these specific tests. Code(s): J18.9 - PNEUMONIA, UNSPECIFIED ORGANISM (2) Malignant thymoma Current Visit: Yes Status: Chronic Assessment & Plan: Dr Braun will be taking over care of patient's tx for malignancy. He has consulted with Oncologist Dr Dalton at [facility] [place] and there are 4 other possible treatments available that have not been tried in this patient. Code(s): C37 - MALIGNANT NEOPLASM OF THYMUS (3) Rib pain Current Visit: Yes Status: Acute Assessment & Plan: xray right ribs and thoracic spine. Code(s): R07.81 - PLEURODYNIA (4) Anemia Current Visit: Yes Status: Chronic Qualifiers: Anemia type: unspecified type Qualified Code(s): D64.9 - Anemia, unspecified Assessment & Plan: with hydration Hgb down to 7.9,will follow Code(s): D64.9 - ANEMIA, UNSPECIFIED
[2020-03-29] MEDS ORDERED: Imitrex 6 MG/0.5 ML SQ STA (17:07)
[2020-03-29] MEDS: Sodium Chloride 0.9% 1000 ML 1,000 ML IV SCH (18:59)
[2020-03-29] MEDS ORDERED: Mucomyst 200 MG/ML IH SCH (19:00)
[2020-03-29] MEDS: ROCEPHIN 1 Gm-D5w 50 ml Bag** 1 G/50 ML IVPB IV SCH (21:50)
[2020-03-30] MEDS: PATIENT OWN MEDICATION PO PRN ×5 (02:54→21:32)
[2020-03-30] MEDS: PROVENTIL 2.5 MG/3 ML NEB IH PRN (03:48)
[2020-03-30] MEDS: Sodium Chloride 0.9% 1000 ML 1,000 ML IV SCH (04:33)
[2020-03-30 05:03] LABS: Basophil (Absolute #) 0 (0-0.4); Eosinophil % 0.6 % (0.00-5.0); Eosinophil (Absolute #) 0.04 (0-0.5); Hematocrit 27.4 % (35-47); Hemoglobin 7.6 gm/dl (12.0-16.0); Lymphocyte (Absolute #) 0.95 (1.0-4.6); Lymphocytes % 14.9 % (24.0-44.0); Mean Cell Volume 104.2 fl (78-100); Mean Corpuscular Hemoglobin 28.9 pg (26-32); Mean Corpuscular Hgb Concent. 27.7 g/dl (32-36); Monocyte (Absolute #) 0.98 (0.0-1.3); Monocytes % 15.4 % (0.0-12.0); Neutrophil % 69.1 % (36.0-66.0); Platelet Count 310 K/mm3 (150-450); Red Blood Count 2.63 M/mm3 (4.1-5.4); Red Cell Distribution Width 14.4 % (11.5-14.0); White Blood Count 6.4 K/mm3 (4.0-10.5)
[2020-03-30 05:18] LABS: ALBUMIN 2.7 g/dL (3.5-5.0); ALKALINE PHOSPHATASE 99 U/L (38-126); BLOOD UREA NITROGEN 8 mg/dL (7-17); CHLORIDE 90 mmol/L (98-107); Calcium 8.1 mg/dL (8.4-10.2); Creatinine 1 0.38 mg/dL (0.52-1.04); EST GLOMERULAR FILTRATION RATE > 60.0 ML/MIN; Glucose 91 mg/dL (74-106); Potassium 3.6 mmol/L (3.5-5.1); SGOT/AST 43 U/L (14-36); SGPT/ALT 15 U/L (0-35); SODIUM 135 mmol/L (137-145); Total Protein 5.9 g/dL (6.3-8.2)
[2020-03-30 05:29] LABS: Carbon Dioxide 42 mmol/L (22-30)
[2020-03-30 05:30] LABS: ANION GAP 6.6 MEQ/L (5-15)
[2020-03-30 05:58] LABS: Slide Review 1 YES
[2020-03-30] MEDS: PROVENTIL 2.5 MG/3 ML NEB IH SCH ×5 (06:58→23:35)
[2020-03-30] MEDS: Mucomyst 200 MG/ML IH SCH ×2 (06:58→19:58)
[2020-03-30] MEDS: PULMICORT 0.5 MG/2 ML RESPULES IH SCH ×2 (06:58→19:32)
[2020-03-30] MEDS ORDERED: Duragesic 75 MCG Patch TOP SCH ×2 (07:30→16:00)
--- NOTE | 2020-03-30 08:26 | PCM.NOTE ---
Date and Time: 03/30/20822 Subjective Assessment: patient still has significant cough, has some pain in her back from coughing. no other new complaints Objective Exam General Appearance: other (chronically ill appearing) Neurologic Exam: alert, oriented x 3 Respiratory Exam: rhonchi Cardiovascular Exam: regular rate/rhythm, normal heart sounds Gastrointestinal/Abdomen Exam: soft, No tenderness, No mass Extremity Exam: normal inspection, normal range of motion OBJECTIVE DATA Vital Signs: Vital Signs - 24 hr Temp Pulse Resp BP Pulse Ox 03/30/20 07:10 86 28 H 98 03/30/20 07:07 98.5 F 98 H 18 92/51 96 03/30/20 04:00 98.0 F 103 H 20 109/66 92 L 03/30/20 03:48 98 H 18 95 03/29/20 23:45 88 14 98 03/29/20 23:43 97.9 F 89 19 90/51 98 03/29/20 19:45 88 18 98 03/29/20 19:31 97.4 F 96 H 19 107/68 94 L 03/29/20 17:25 109 H 14 90 L 03/29/20 16:00 97.7 F 107 H 25 H 111/60 95 03/29/20 11:47 98.5 F 106 H 16 103/55 95 Pain Assessment - Last Documented Pain Intensity 4 Pain Scale Used 0-10 Pain Scale Intake and Output: Intake & Output 03/27/20 03/28/20 03/29/20 03/30/20 11:59 11:59 11:59 11:59 Intake Total 480 1780 2383 Output Total 800 1200 2000 Balance -320 580 383 Weight 74.7 kg 75.9 kg 76.4 kg Lab Results: Lab Results-Last 24 Hours 03/30/20 03/30/20 Range/Units 04:20 04:20 WBC 6.4 (4.0-10.5) K/mm3 RBC 2.63 L (4.1-5.4) M/mm3 Hgb 7.6 L (12.0-16.0) gm/dl Hct 27.4 L (35-47) % MCV 104.2 H (78-100) fl MCH 28.9 (26-32) pg MCHC 27.7 L (32-36) g/dl RDW 14.4 H (11.5-14.0) % Plt Count 310 (150-450) K/mm3 MPV 9.0 (7.5-11.0) fl Gran % 69.1 H (36.0-66.0) % Eos # (Auto) 0.04 (0-0.5) Absolute Lymphs (auto) 0.95 L (1.0-4.6) Absolute Monos (auto) 0.98 (0.0-1.3) Lymphocytes % 14.9 L (24.0-44.0) % Monocytes % 15.4 H (0.0-12.0) % Eosinophils % 0.6 (0.00-5.0) % Basophils % 0.0 (0.0-0.4) % Absolute Granulocytes 4.40 (1.4-6.9) Basophils # 0 (0-0.4) Sodium 135 L (137-145) mmol/L Potassium 3.6 (3.5-5.1) mmol/L Chloride 90 L (98-107) mmol/L Carbon Dioxide 42 H (22-30) mmol/L Anion Gap 6.6 (5-15) MEQ/L BUN 8 (7-17) mg/dL Creatinine 0.38 L (0.52-1.04) mg/dL Estimated GFR > 60.0 ML/MIN Glucose 91 (74-106) mg/dL Calcium 8.1 L (8.4-10.2) mg/dL Total Bilirubin 0.20 (0.2-1.3) mg/dL AST 43 H (14-36) U/L ALT 15 (0-35) U/L Alkaline Phosphatase 99 (38-126) U/L Serum Total Protein 5.9 L (6.3-8.2) g/dL Albumin 2.7 L (3.5-5.0) g/dL Slides for Path Review YES Radiology Exams: Radiology Procedures Category Date Time Status MODIFIED BARIUM SWALLOW EXAM Routine Exams 03/30/20 13:00 Ordered RIBS UNILATERAL Routine Exams 03/30/20 Ordered THORACOLUMBAR SPINE Routine Exams 03/30/20 Ordered Multi-Disciplinary Progress Notes: Multi-Disciplinary Progress Notes 03/29/20 11:11 Case Management Note by Rosalinda Durán PATIENT ACUTELY ILL, WILL NEED TO SEE WHAT PULMONOGY SAYS AND SURGERY PLANS THEN WILL START TO DISCUSS NEEDS FOR DC Initialized on 03/29/20 11:11 - END OF NOTE Assessment/Plan (1) Lung malignancy Current Visit: Yes Status: Acute Qualifiers: Laterality: unspecified laterality Lung location: unspecified part of lung Qualified Code(s): C34.90 - Malignant neoplasm of unspecified part of unspecified bronchus or lung Code(s): C34.90 - MALIGNANT NEOPLASM OF UNSP PART OF UNSP BRONCHUS OR LUNG (2) Pneumonia Current Visit: Yes Status: Acute Qualifiers: Pneumonia type: due to unspecified organism Laterality: unspecified laterality Lung location: unspecified part of lung Qualified Code(s): J18.9 - Pneumonia, unspecified organism Assessment & Plan: continue rocephin and zithromax, patient is hemodynamically stable. will defer to Dr Paris regarding code status and palliative vs aggressive therapy at this point. Code(s): J18.9 - PNEUMONIA, UNSPECIFIED ORGANISM
[2020-03-30] MEDS: Zithromax 500 MG/ 250 ML NaCl Premix 500 MG/250 ML IVPB IV SCH (10:16)
[2020-03-30] MEDS: CLARITIN 10 MG PO SCH (10:21)
[2020-03-30] MEDS: Prozac 20 MG PO SCH (10:21)
[2020-03-30] MEDS: Diflucan 100 MG PO SCH (10:21)
[2020-03-30] MEDS: Protonix 40MG Tablet PO SCH (10:22)
[2020-03-30] MEDS: DELTASONE 10 MG PO SCH (10:22)
[2020-03-30] MEDS: Toprol Xl 50 MG PO SCH (10:26)
--- NOTE | 2020-03-30 11:33 | CONS ---
CONSULT DATE: 03/29/2020 REASON FOR CONSULT: Inadequate p.o. nutrition. Consultation from medical. 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 She is markedly debilitated. She has a Port-A-Cath. She has an IV infusing. She is not eating at all at this time. Manny discussion with patient and the family. They requested a feeding tube. She is seen and examined at the bedside. She is not conversing today. Her abdomen she has no upper abdominal incision. She appears to be a candidate for a PEG tube. IMPRESSION: Inability to maintain nutrition. PLAN: PEG tube placement. This is scheduled for Friday with Dr. Jamil Jennings.
--- NOTE | 2020-03-30 13:49 | XRAY ---
Indication: Pain. History lung cancer. Metastasis. Comparison: None AP/lateral spine centered at thoracolumbar junction demonstrates nondisplaced healing right 11/12 rib fractures, old nonunited left 9-11 rib fractures, multiple paraspinal surgical clips, bilateral lung airspace disease, and left lung base suture material. No other bony, articular, or soft tissue abnormalities.
--- NOTE | 2020-03-30 13:52 | XRAY ---
Indication: Aspiration pneumonia. Modified barium swallow study was performed by the Department of speech therapy with fluoroscopic assistance provided. Patient ingested multiple consistencies of liquids and solids. Full report and recommendations will be reported separately. Approximately 1 minute 11 seconds fluoroscopy used.
--- NOTE | 2020-03-30 13:53 | XRAY ---
Indication: Pain. History lung cancer. Comparison: CT chest March 27, 2020. 2 view right ribs demonstrates CT proven healing nondisplaced lateral 4 and posterior 10-12 rib fractures without hemothorax/pneumothorax. Incidental right Port-A-Cath, bilateral airspace disease, paraspinal surgical clips, and left mid lung suture material similar to the recent CT chest exam.
[2020-03-30] MEDS: TYLENOL 325 MG PO PRN (17:53)
[2020-03-30 20:01] LABS: ABO TYPING O; Antibody Screen NEGATIVE (NEGATIVE); RH TYPING POSITIVE
[2020-03-30 20:05] LABS: CROSS MATCH (PRBC) COMPATIBLE (COMPATIBLE)
[2020-03-30] MEDS: ROCEPHIN 1 Gm-D5w 50 ml Bag** 1 G/50 ML IVPB IV SCH (21:27)
[2020-03-31] MEDS: PROVENTIL 2.5 MG/3 ML NEB IH SCH ×3 (03:39→10:53)
[2020-03-31] MEDS: TYLENOL 325 MG PO PRN (03:51)
[2020-03-31] MEDS: Sodium Chloride 0.9% 1000 ML 1,000 ML IV SCH (04:25)
[2020-03-31 04:42] LABS: Absolute Neutrophil Ct (ANC) 3.68 (1.4-6.9); BASOPHIL % 0.2 % (0.0-0.4); Basophil (Absolute #) 0.01 (0-0.4); Eosinophil % 1.4 % (0.00-5.0); Eosinophil (Absolute #) 0.08 (0-0.5); Hematocrit 27.3 % (35-47); Hemoglobin 7.7 gm/dl (12.0-16.0); Lymphocyte (Absolute #) 0.97 (1.0-4.6); Lymphocytes % 16.7 % (24.0-44.0); Mean Cell Volume 102.2 fl (78-100); Mean Corpuscular Hemoglobin 28.8 pg (26-32); Mean Corpuscular Hgb Concent. 28.2 g/dl (32-36); Mean Platelet Volume 8.8 fl (7.5-11.0); Monocyte (Absolute #) 1.06 (0.0-1.3); Monocytes % 18.3 % (0.0-12.0); Neutrophil % 63.4 % (36.0-66.0); Platelet Count 249 K/mm3 (150-450); Red Blood Count 2.67 M/mm3 (4.1-5.4); Red Cell Distribution Width 16.9 % (11.5-14.0); White Blood Count 5.8 K/mm3 (4.0-10.5)
[2020-03-31] MEDS ORDERED: MEFOXIN 2 GM PREMIX** 2 GM/50 ML ML IV SCH (05:00)
[2020-03-31 05:04] LABS: ALBUMIN 2.4 g/dL (3.5-5.0); ALKALINE PHOSPHATASE 87 U/L (38-126); BLOOD UREA NITROGEN 10 mg/dL (7-17); CHLORIDE 91 mmol/L (98-107); Calcium 7.8 mg/dL (8.4-10.2); Creatinine 1 0.35 mg/dL (0.52-1.04); EST GLOMERULAR FILTRATION RATE > 60.0 ML/MIN; Glucose 108 mg/dL (74-106); Potassium 3.9 mmol/L (3.5-5.1); SGOT/AST 36 U/L (14-36); SGPT/ALT 14 U/L (0-35); SODIUM 134 mmol/L (137-145); Total Protein 5.4 g/dL (6.3-8.2)
[2020-03-31 05:10] LABS: Carbon Dioxide 43 mmol/L (22-30)
[2020-03-31 05:13] LABS: ANION GAP 3.9 MEQ/L (5-15)
[2020-03-31] MEDS: PULMICORT 0.5 MG/2 ML RESPULES IH SCH (06:28)
[2020-03-31] MEDS: Tessalon Perles 100 MG PO PRN (07:19)
[2020-03-31] MEDS: PATIENT OWN MEDICATION PO PRN (10:02)
[2020-03-31] MEDS: Zithromax 500 MG/ 250 ML NaCl Premix 500 MG/250 ML IVPB IV SCH (10:15)
[2020-03-31] MEDS: Diflucan 100 MG PO SCH (10:15)
[2020-03-31] MEDS: DELTASONE 10 MG PO SCH (10:15)
[2020-03-31] MEDS: CLARITIN 10 MG PO SCH (10:15)
[2020-03-31] MEDS: Protonix 40MG Tablet PO SCH (10:16)
[2020-03-31] MEDS: Prozac 20 MG PO SCH (10:16)
[2020-03-31] MEDS: Toprol Xl 50 MG PO SCH (10:23)
[2020-03-31 12:26] VITALS: BP 90/51; PULSE 89; O2SAT 98
== END 2020-03-31 14:27 | DRG 180 ==
LOC: ED 18:11 → MED SURG 03-28 00:02 → OBSVTOIN 03-30 09:00
PROVIDERS: ADMIT Family Medicine; ATTEND Family Medicine
DX: C78.00 Secondary malignant neoplasm of unspecified lung (principal); J18.1 Lobar pneumonia, unspecified organism; C37 Malignant neoplasm of thymus; Z79.899 Other long term (current) drug therapy; D64.9 Anemia, unspecified; E87.6 Hypokalemia; R09.02 Hypoxemia; G43.909 Migraine, unspecified, not intractable, without status migrainosus; R07.81 Pleurodynia
CPT/HCPCS: 0241U; 36415; 71100; 71260; 72080; 74230; 80053; 80307; 81001; 82607; 82784; 82785; 83516; 83519; 83605; 83880; 84443; 84484; 84703; 85025; 85027; 86317; 86850; 86900; 86901; 86922; 87040; 87070; 87101; 92611; 93005; 93268; 94640; 94760; 94762; 96360; 96365; 99285; G0378; P9016; J0456; J0696; J3010; J3030; J3480; J7609; A9270-GY

== ENCOUNTER 2023-10-18 19:39 | Observation (INO) | payer MEDICARE ==
[2023-10-18 20:58] LABS: Absolute Neutrophil Ct (ANC) 7.98 x10^3/uL (1.56-6.13); BASOPHIL % 0.2 % (0.1-1.2); Basophil (Absolute #) 0.02 x10^3/uL (0.01-0.08); Eosinophil % 0.1 % (0.7-5.8); Eosinophil (Absolute #) 0.01 x10^3/uL (0.04-0.36); Hematocrit 38.1 % (34.1-44.9); Hemoglobin 12.4 g/dL (11.2-15.7); IMMATURE GRAN # 0.02 x10^3u/L (0.001-0.031); IMMATURE GRAN % 0.2 % (0.001-0.429); Lymphocyte (Absolute #) 0.44 x10^3/uL (1.18-3.74); Mean Cell Volume 92.5 fL (79.4-94.8); Mean Corpuscular Hemoglobin 30.1 pg (25.6-32.2); Mean Corpuscular Hgb Concent. 32.5 g/dL (32.2-35.5); Mean Platelet Volume 8.7 fL (9.4-12.3); Monocyte (Absolute #) 0.31 x10^3/uL (0.24-0.86); Monocytes % 3.5 % (4.7-12.5); Platelet Count 346 x10^3/uL (182-369); Red Blood Count 4.12 x10^6/uL (3.93-5.22); Red Cell Distribution Width 12.3 % (11.7-14.4); White Blood Count 8.8 x10^3/uL (3.98-10.04)
[2023-10-18] MEDS ORDERED: Zofran 4 MG/2 ML VIAL ONE (20:58)
[2023-10-18] MEDS ORDERED: Sodium Chloride 0.9% 1000 ML 1,000 ML ONE (20:59)
[2023-10-18] MEDS: Sodium Chloride 0.9% 1000 ML 1,000 ML IV STA (21:06)
[2023-10-18] MEDS: Zofran 4 MG/2 ML VIAL IV ONE (21:07)
[2023-10-18 21:11] LABS: ALBUMIN 4.2 g/dL (3.5-5.0); BILIRUBIN,TOTAL 0.4 mg/dL (0.2-1.3); Calcium 9.2 mg/dL (8.4-10.2); Creatinine 1 0.42 mg/dL (0.52-1.04); EST GLOMERULAR FILTRATION RATE 124.4 ML/MIN; HCG SERUM TEST NEGATIVE (NEGATIVE); Potassium 4.4 mmol/L (3.5-5.1); Total Protein 7.3 g/dL (6.3-8.2)
[2023-10-18 21:20] LABS: ANION GAP 14.4 MEQ/L (5-15)
[2023-10-18 21:35] LABS: ADD URINE CULTURE? YES (NO); Appearance Cloudy (Clear); Bacteria Rare /HPF (None Seen); Bilirubin Negative (Negative); Blood Negative (Negative); Epithelial Cells Few /HPF (None Seen); Glucose, Urine Negative (Negative); Hyaline Casts None Seen /LPF (0-2); Ketones Trace (Negative); Leukocyte Esterase Moderate (Negative); Nitrite Negative (Negative); Protein,Urine Dip Trace (Negative); RBC 0-2 /HPF (0-5); Specific Gravity >=1.030 (1.005-1.030)
[2023-10-18 22:15] LABS: Slide Review 1 YES
--- NOTE | 2023-10-18 22:22 | ERPHSYRPT ---
- History of Present Illness Time Seen by Provider: 10/18/23 19:57 Historian: patient Exam Limitations: no limitations Patient Subjective Stated Complaint: Feeding tube blockage and possible insect bite on left thumb Triage Nursing Assessment: Pt came to ED with c/o of feeding tube blockage, weakness, left thumb infection. Pt states, " I haven't been able to eat, feeling weak, and haven't been able to get out of bed." Rates stomach pain 6/10, t achycardic, skin w/n/d, patient is on 3L of oxygen per nasal cannula, gaits steadym pt doesn't appear to be in any distress at this time. Physician History: 43 years old female with history of myasthenia gravis, thymoma, chronic respiratory failure on 3 L oxygen, esophageal stricture needing dilatation on a regular basis, feeding tube placement presented in the ER with complaint of decreased oral intake for the last few days with nausea without vomiting. Also complaining of upper abdominal pain and the feeding tube is not working properly. Patient reports feeling weak fatigued and and tired. Patient has left thumb swelling with abscess. Patient has been taking a ntibiotics for the last few days. Reports dull aching sharp pain. No fever or chills reported. Allergies/Adverse Reactions: celecoxib [From Celebrex] Allergy (Verified 10/18/23 20:19) Home Medications: ALPRAZolam 1 MG [Xanax 1 mg] 1 mg PO TID PRN 10/18/23 [History] Albuterol Sulfate [Albuterol Sulfate Hfa] 8.5 gm IH DAILY PRN PRN 10/18/23 [History] Cephalexin Mh 500 mg [Keflex 500 mg] 500 mg PO TID 10/18/23 [History] Fluoxetine HCl 40 mg PO DAILY 10/18/23 [History] Omeprazole 40 mg PO BID 10/18/23 [History] Ondansetron [Ondansetron Odt ] 4 mg PO DAILY PRN PRN 10/18/23 [History] Oxycodone HCl [Roxicodone] 90 mg PO Q4H 10/18/23 [History] Prednisone 10 mg [Deltasone 10 mg] 30 mg PO DAILY 10/18/23 [History] SUMAtriptan succinate [Imitrex 50 mg] 100 mg PO DAILY PRN PRN 10/18/23 [History] fentaNYL [Fentanyl] 100 mcg TOP UD 10/18/23 [History] Hx Tetanus, Diphtheria Vaccination/Date Given: No Hx Influenza Vaccination/Date Given: Yes Hx Pneumococcal Vaccination/Date Given: No Travel Risk - International Travel Have you traveled outside of the country in past 3 weeks: No - Emerging Infectious Disease Are you exhibiting symptoms associated with any current EIDs: Yes Symptoms: Abdominal Pain - Review of Systems Constitutional: Fatigue Eyes: No Symptoms Ears, Nose, & Throat: No Symptoms Respiratory: No Symptoms Cardiac: No Symptoms Abdominal/Gastrointestinal: Abdominal Pain, Nausea Genitourinary Symptoms: No Symptoms Musculoskeletal: Arthralgias Skin: No Symptoms Neurological: No Symptoms Hematologic/Lymphatic: No Symptoms - Past Medical History Pertinent Past Medical History: Yes Neurological History: Migraines, Peripheral Neuropathy ENT History: Cataracts Cardiac History: No Pertinent History Respiratory History: COPD, Sleep Apnea Endocrine Medical History: Other Musculoskeletal History: Arthritis, Fibromyalgia, Fractures, Osteoarthritis GI Medical History: GERD History: No Pertinent History Female Reproductive Disorders: Endometriosis Other Medical History: lupus, myasthenis gravis, myalgia, 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, 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 - Past Surgical History Past Surgical History: Yes Neuro Surgical History: No Pertinent History Cardiac: No Pertinent History Respiratory: No Pertinent History Gastrointestinal: Bowel Surgery, Cholecystectomy Genitourinary: No Pertinent History Musculoskeletal: Joint Replacement Female Surgical History: No Pertinent History Other Surgical History: feeding tube, L side rib removal, hip replacement, 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 - Female History Hx Last Menstrual Period: 2008 Hx Now: (unkn) - Social History Smoking Status: Never smoker Exposure to second hand smoke: No Drug Use: none - Social Determinants of Health Will the patient participate in the screening: Yes Do you worry about a steady place to live?: No Do you have any problems with any of the following?: No known problems In the past 12 months,have you had to go without utilities?: No Transportation Issues: No Has anyone in your support network made you feel unsafe?: No Have you or anyone in your house had to go without enough: No - Nursing Vital Signs Nursing Vital Signs: Initial Vital Signs Temperature 97.5 F 10/18/23 19:56 Pulse Rate 125 H 10/18/23 19:56 Blood Pressure 132/83 10/18/23 19:56 O2 Sat by Pulse Oximetry 91 L 10/18/23 19:56 Pain Scale Pain Intensity 6 - Physical Exam General Appearance: no apparent distress, alert Eye Exam: PERRL/EOMI Ears, Nose, Throat Exam: normal ENT inspection Neck Exam: normal inspection, full range of motion Respiratory Exam: normal breath sounds, lungs clear Cardiovascular Exam: normal heart sounds, tachycardia Gastrointestinal/Abdomen Exam: soft, normal bowel sounds, tenderness (Mild diffuse tenderness. PEG tube well in place) Extremity Exam: normal inspection, normal range of motion, pelvis stable Neurologic Exam: alert, oriented x 3, cooperative Skin Exam: normal color SpO2 Interpretation: normal SpO2: 97 O2 Delivery: Room Air Ordered Tests: Medication Summary Generic Name Dose Route Start Last Admin Trade Name Freq PRN Reason Stop Dose Admin Acetaminophen 650 mg 10/19/23 01:23 Acetaminophen 650 Mg Supp.Rect NV 11/18/23 01:22 Q4H PRN PRN PAIN AND/OR FEVER Acetaminophen 650 mg 10/19/23 14:22 Acetaminophen 325 Mg Tablet PO 11/18/23 14:21 Q4H PRN PRN TEMP >100 Albuterol/Ipratropium 3 ml 10/19/23 05:22 Ipratropium/Albuterol Sulfate 3 Ml Ampul.Neb IH 11/18/23 05:21 Q4HPRN PRN SHORTNESS OF BREATH/WHEEZING Alprazolam 1 mg 10/19/23 07:25 10/20/23 11:09 Alprazolam 1 Mg Tablet PO 11/18/23 01:27 1 mg TID PRN PRN Administration ANXIETY Cephalexin HCl 500 mg 10/20/23 13:00 10/20/23 12:22 Cephalexin Mh 250 Mg/5 Ml Bottle PO 10/27/23 12:59 500 mg QID KAELYN Administration Fentanyl 100 mcg 10/19/23 20:15 10/19/23 20:17 Duragesic 50mcg Patch TD 10/24/23 20:14 100 mcg Q72H KAELYN Administration Fluoxetine HCl 40 mg 10/19/23 10:00 10/20/23 10:39 Fluoxetine Hcl 20 Mg Cap PO 11/18/23 09:59 40 mg DAILY KAELYN Administration Hydromorphone HCl 0.5 mg 10/20/23 09:55 Hydromorphone 1 Mg/1ml Inj IV 10/25/23 09:54 Q4H PRN PRN PAIN Sodium Chloride 1,000 mls @ 50 mls/hr 10/19/23 01:30 10/20/23 11:09 Sodium Chloride 0.9% 1000 Ml IV 11/18/23 01:29 50 mls/hr .Q20H KAELYN Administration Lidocaine HCl 0 gm 10/20/23 13:00 10/20/23 12:30 Lidocaine Hcl 35 Gm Tube Ointment TP 11/19/23 12:59 35 gm DAILY KAELYN Administration Naloxone HCl 0.4 mg 10/19/23 10:59 Naloxone Hcl 0.4 Mg/Ml Ml IV 11/18/23 10:58 PRN PRN RESPIRATORY DEPRESSION Ondansetron HCl 4 mg 10/19/23 01:23 Ondansetron Hcl 4 Mg/2 Ml Vial IV 11/18/23 01:22 Q6H PRN PRN NAUSEA/VOMITING Pantoprazole Sodium 40 mg 10/19/23 10:00 10/20/23 10:39 Protonix (Pantoprazole) 40 Mg Tablet PO 11/18/23 09:59 40 mg DAILY KAELYN Administration Oxycodone Ir 30mg 3 each 10/19/23 08:00 10/20/23 12:19 Tablet PO 11/18/23 07:59 3 each Q4H KAELYN Administration Sumatriptan 100mg 1 each 10/19/23 12:00 10/19/23 14:11 Tablet PO 11/18/23 11:59 1 each PRN PRN Administration Prednisone 10 mg 10/19/23 10:00 10/20/23 15:00 Prednisone 10 Mg Tablet PO 11/18/23 09:59 10 mg TID KAELYN Administration Silver Sulfadiazine 50 gm 10/20/23 12:00 10/20/23 12:24 Silver Sulfadiazine 50 Gm Tube TP 11/19/23 11:59 50 gm BID KAELYN Administration Discontinued Medications Generic Name Dose Route Start Last Admin Trade Name Freq PRN Reason Stop Dose Admin Albuterol/Ipratropium 3 ml 10/19/23 07:00 Ipratropium/Albuterol Sulfate 3 Ml Ampul.Neb IH 11/18/23 06:59 Q6HRT KAELYN Alprazolam 1 mg 10/19/23 01:28 10/19/23 02:33 Alprazolam 1 Mg Tablet PO 11/18/23 01:27 1 mg TID PRN Administration ANXIETY Bacitracin Zinc 0.9 each 10/18/23 23:12 10/18/23 23:14 Bacitracin Packet 1 Each Pckt TP 10/18/23 23:13 0.9 each STAT ONE Administration Bacitracin Zinc Confirm 10/18/23 23:13 Bacitracin Packet 1 Each Pckt Administered 10/18/23 23:14 Dose 1 each .ROUTE .STK-MED ONE Dexmedetomidine/Sodium Chloride Confirm 10/19/23 12:12 Dexmedetomidine In 0.9 % Nacl 80 Mcg/20 Ml Vial Administered 10/19/23 12:13 Dose 80 mcg IV .STK-MED ONE Fentanyl Citrate Confirm 10/19/23 13:34 Fentanyl Citrate 100 Mcg/2 Ml* Vial Administered 10/19/23 13:35 Dose 100 mcg .ROUTE .STK-MED ONE Hydromorphone HCl 0.5 mg 10/19/23 01:24 10/20/23 00:18 Hydromorphone 1 Mg/1ml Inj IV 10/24/23 01:23 0.5 mg Q4H PRN PRN Administration PAIN Sodium Chloride 1,000 mls @ 999 mls/hr 10/18/23 20:22 10/18/23 22:16 Sodium Chloride 0.9% 1000 Ml IV 10/18/23 21:22 Infused .Q1H1M STA Infusion Sodium Chloride Confirm 10/18/23 20:59 Sodium Chloride 0.9% 1000 Ml Administered 10/18/23 21:00 Dose 1,000 mls @ ud .ROUTE .STK-MED ONE Cefazolin Sodium 2 gm in 100 mls @ 200 mls/hr 10/19/23 10:45 Cefazolin 2 Gm/100 Ml Nacl IV 10/19/23 11:14 ONCALLTOOR KAELYN Lidocaine HCl Confirm 10/18/23 22:46 Lidocaine Hcl 1% 20 Ml Mdv 20 Ml Ml Administered 10/18/23 22:47 Dose 1 ml .ROUTE .STK-MED ONE Lidocaine HCl 3 ml 10/18/23 23:03 10/18/23 23:05 Lidocaine Hcl 1% 20 Ml Mdv 20 Ml Ml IJ 10/18/23 23:04 3 ml STAT ONE Administration Lidocaine HCl Confirm 10/19/23 12:12 Lidocaine - Mpf 2% 5 Ml Vial Administered 10/19/23 12:13 Dose 5 ml .ROUTE .STK-MED ONE Lidocaine HCl 0 gm 10/20/23 12:00 Lidocaine Hcl 35 Gm Tube Ointment TP 11/19/23 11:59 BID KAELYN Midazolam HCl Confirm 10/19/23 12:12 Midazolam Hcl 2 Mg/2 Ml Vial Administered 10/19/23 12:13 Dose 2 mg .ROUTE .STK-MED ONE Miscellaneous Information 1 each 10/19/23 11:15 Medication Intervention 1 Each Each MC 11/18/23 11:14 .RN TO CHECK [facility] Non-Formulary Medication 90 each 10/19/23 04:00 10/19/23 04:16 Non-Formulary Drug 1 Each Each PO 11/18/23 03:59 90 each Q4H KAELYN Administration Ondansetron HCl 4 mg 10/18/23 20:22 10/18/23 21:07 Ondansetron Hcl 4 Mg/2 Ml Vial IV 10/18/23 20:23 4 mg STAT ONE Administration Ondansetron HCl Confirm 10/18/23 20:58 Ondansetron Hcl 4 Mg/2 Ml Vial Administered 10/18/23 20:59 Dose 4 mg .ROUTE .STK-MED ONE Phenylephrine HCl Confirm 10/19/23 12:43 Phenylephrine 10 Mg/Ml Vial Administered 10/19/23 12:44 Dose 10 mg .ROUTE .STK-MED ONE Prochlorperazine Edisylate Confirm 10/19/23 13:38 Prochlorperazine Edisylate 10 Mg/2 Ml Vial Administered 10/19/23 13:39 Dose 10 mg .ROUTE .STK-MED ONE Propofol Confirm 10/19/23 12:12 Propofol 10 Mg/Ml 20ml Vial Administered 10/19/23 12:13 Dose 200 mg IV .STK-MED ONE Propofol Confirm 10/19/23 12:49 Propofol 10 Mg/Ml 20ml Vial Administered 10/19/23 12:50 Dose 200 mg IV .STK-MED ONE Lab/Rad Data: Laboratory Result Diagrams 10/18/23 20:50 10/18/23 20:50 Laboratory Results 08/31/24 08/31/24 08/31/24 Range/Units 21:11 20:52 20:50 WBC (3.98-10.04) x10^3/uL RBC (3.93-5.22) x10^6/uL Hgb (11.2-15.7) g/dL Hct (34.1-44.9) % MCV (79.4-94.8) fL MCH (25.6-32.2) pg MCHC (32.2-35.5) g/dL RDW (11.7-14.4) % Plt Count (182-369) x10^3/uL MPV (9.4-12.3) fL Gran % (34.0-71.1) % Immature Gran % (Auto) (0.001-0.429) % Nucleat RBC Rel Count (0.00-0.2) % Eos # (Auto) (0.04-0.36) x10^3/uL Immature Gran # (Auto) (0.001-0.031) x10^3u/L Absolute Lymphs (auto) (1.18-3.74) x10^3/uL Absolute Monos (auto) (0.24-0.86) x10^3/uL Absolute Nucleated RBC (0.00-0.012) x10^3u/L Lymphocytes % (19.3-51.7) % Monocytes % (4.7-12.5) % Eosinophils % (0.7-5.8) % Basophils % (0.1-1.2) % Absolute Granulocytes (1.56-6.13) x10^3/uL Basophils # (0.01-0.08) x10^3/uL Sodium (135-145) mmol/L Potassium (3.5-5.1) mmol/L Chloride (98-107) mmol/L Carbon Dioxide (22-30) mmol/L Anion Gap (5-15) MEQ/L BUN (7-17) mg/dL Creatinine (0.52-1.04) mg/dL Estimated GFR ML/MIN Glucose (74-106) mg/dL Lactic Acid 1.1 (0.4-2.0) Calcium (8.4-10.2) mg/dL Total Bilirubin (0.2-1.3) mg/dL AST (14-36) U/L ALT (0-35) U/L Alkaline Phosphatase (38-126) U/L Serum Total Protein (6.3-8.2) g/dL Albumin (3.5-5.0) g/dL Lipase (23-300) U/L Serum HCG, Qual NEGATIVE (NEGATIVE) Urine Color Dark Yellow A (Yellow) Urine Appearance Cloudy A (Clear) Urine pH 6.0 (4.6-8.0) Ur Specific [place] >=1.030 A (1.005-1.030) Urine Protein Trace A (Negative) Urine Glucose (UA) Negative (Negative) mg/dL Urine Ketones Trace A (Negative) Urine Blood Negative (Negative) Urine Nitrite Negative (Negative) Urine Bilirubin Negative (Negative) Urine Urobilinogen 1.0 A (0.2) mg/dL Ur Leukocyte Esterase Moderate A (Negative) U Hyaline Cast (Auto) None Seen (0-2) /LPF Urine Microscopic RBC 0-2 (0-5) /HPF Urine Microscopic WBC 3-5 (0-5) /HPF Ur Epithelial Cells Few (None Seen) /HPF Urine Bacteria Rare A (None Seen) /HPF Urine Culture Reflexed YES (NO) Slides for Path Review 10/18/23 10/18/23 Range/Units 20:50 20:50 WBC 8.8 (3.98-10.04) x10^3/uL RBC 4.12 (3.93-5.22) x10^6/uL Hgb 12.4 (11.2-15.7) g/dL Hct 38.1 (34.1-44.9) % MCV 92.5 (79.4-94.8) fL MCH 30.1 (25.6-32.2) pg MCHC 32.5 (32.2-35.5) g/dL RDW 12.3 (11.7-14.4) % Plt Count 346 (182-369) x10^3/uL MPV 8.7 L (9.4-12.3) fL Gran % 91.0 H (34.0-71.1) % Immature Gran % (Auto) 0.2 (0.001-0.429) % Nucleat RBC Rel Count 0.0 (0.00-0.2) % Eos # (Auto) 0.01 L (0.04-0.36) x10^3/uL Immature Gran # (Auto) 0.02 (0.001-0.031) x10^3u/L Absolute Lymphs (auto) 0.44 L (1.18-3.74) x10^3/uL Absolute Monos (auto) 0.31 (0.24-0.86) x10^3/uL Absolute Nucleated RBC 0.00 (0.00-0.012) x10^3u/L Lymphocytes % 5.0 L (19.3-51.7) % Monocytes % 3.5 L (4.7-12.5) % Eosinophils % 0.1 L (0.7-5.8) % Basophils % 0.2 (0.1-1.2) % Absolute Granulocytes 7.98 H (1.56-6.13) x10^3/uL Basophils # 0.02 (0.01-0.08) x10^3/uL Sodium 135 (135-145) mmol/L Potassium 4.4 (3.5-5.1) mmol/L Chloride 89 L (98-107) mmol/L Carbon Dioxide 36 H (22-30) mmol/L Anion Gap 14.4 (5-15) MEQ/L BUN 21 H (7-17) mg/dL Creatinine 0.42 L (0.52-1.04) mg/dL Estimated GFR 124.4 ML/MIN Glucose 168 H (74-106) mg/dL Lactic Acid (0.4-2.0) Calcium 9.2 (8.4-10.2) mg/dL Total Bilirubin 0.40 (0.2-1.3) mg/dL AST 34 (14-36) U/L ALT 26 (0-35) U/L Alkaline Phosphatase 91 (38-126) U/L Serum Total Protein 7.3 (6.3-8.2) g/dL Albumin 4.2 (3.5-5.0) g/dL Lipase 28 (23-300) U/L Serum HCG, Qual (NEGATIVE) Urine Color (Yellow) Urine Appearance (Clear) Urine pH (4.6-8.0) Ur Specific [place] (1.005-1.030) Urine Protein (Negative) Urine Glucose (UA) (Negative) mg/dL Urine Ketones (Negative) Urine Blood (Negative) Urine Nitrite (Negative) Urine Bilirubin (Negative) Urine Urobilinogen (0.2) mg/dL Ur Leukocyte Esterase (Negative) U Hyaline Cast (Auto) (0-2) /LPF Urine Microscopic RBC (0-5) /HPF Urine Microscopic WBC (0-5) /HPF Ur Epithelial Cells (None Seen) /HPF Urine Bacteria (None Seen) /HPF Urine Culture Reflexed (NO) Slides for Path Review YES - Progress Progress: re-examined Progress Note: 10/19/23 00:23 43-year-old with history of myasthenia gravis, thymoma, respiratory failure on 3 L oxygen, is evaluated for abdominal pain nausea, decreased oral intake with fatigue and tiredness. Patient also has left thumb insect bite/cellulitis/abscess for which she has been taking antibiotics. She is given fluids and symptomatic treatment, on reevaluation she is feeling better. Patient is concerned about inability to use her PEG tube. Workup showed normal white count, unremarkable chemistries. No definite UTI. Left thumb has some element of cellulitis and tissue with minimal sloughing underneath which is removed and dressing applied. Patient is recommended antibiotic but she does not want anything until she consults her neurologist. She is afebrile. Patient CT showed percutaneous tube not in the stomach but in the subhepatic space but no free air or fluid level. Discussed with Dr. Ortiz general surgeon on-call, reviewed history, workup, recommended taking out the current tube, admission to the hospitalist service and he will place back in a new tube in the morning. I have shared the results of workup and plan of care with patient and family which they understand and agree. 10/19/23 00:30 Will see patient in: hospital (observation) Counseled pt/family regarding: lab results, diagnosis, rad results Medical Desision Making - Independent Historian Additional History obtained from: Relative/friend - Discussion of managment Care discussed with:: specialist ( neurosurgeon and Dr. Villa hospitalist) Reviewed:: Test results Agreed on:: Treatment plan, place in obs Will see patient: in hospital - Diagnostic Testing Diagnostic test were ordered, analyzed, and reviewed by me: Yes Radiological Interpretation: Reviewed by me, Teleradiologist Report - Risk of complications The pt has a mod risk of morbidity or mortality based on: Need for prescription drug management, Need for minor surgical intervention in patient with know risk factors The pt has a high risk of morbidity or mortality based on: Decision regarding hospitilization or escalation of hosp level of care - Departure Departure Disposition: Observation Clinical Impression: PEG tube malfunction, Generalized weakness, Infection of thumb Condition: Stable Critical Care Time: No
[2023-10-18] MEDS ORDERED: XYLOCAINE 1% HCL 20 ML MDV ONE (22:46)
[2023-10-18] MEDS: XYLOCAINE 1% HCL 20 ML MDV IJ ONE (23:05)
[2023-10-18] MEDS ORDERED: BACIGUENT PACKET ONE (23:13)
[2023-10-18] MEDS: BACIGUENT PACKET TP ONE (23:14)
--- NOTE | 2023-10-18 23:42 | XRAY ---
CLINICAL HISTORY: abd pain , feedind tube complicatio COMPARISON: None. TECHNIQUE: Axial CT of the abdomen and pelvis was performed with axial images as well as sagittal and coronal reconstruction images without intravenous contrast. One of the following dose reduction techniques were utilized for this exam: Automated exposure control, adjustment of the mA and/or kV according to patient size, use of iterative reconstruction FINDINGS: Basal thoracic cuts: A lesion is seen right para aortic measuring 2.6x1.9 cm. Left pulmonary basal mass seen measuring 3.2 x 2.7 cm and nodule measuring 1.6x1.6 cm. Bilateral rib fractures of indeterminate age. Elevated left diaphragm. Stomach and bowel: no abnormality detected. Percutaneous feeding tube is seen subhepatic anterior to the stomach not extending into the gastric lumen Liver and biliary tree: Normal-sized liver. No liver lesion is seen. GB is surgically removed. Spleen: Unremarkable. Adrenal glands: Unremarkable. Pancreas: Unremarkable. Kidneys and ureters: Unremarkable. No renal stone cysts or hydronephrosis were detected. Retroperitoneum: Unremarkable. Lymph nodes: No evidence of lymphadenopathy. Skeletal system: No suspicious bony lesion detected. Degenerative changes are seen in the spine. Bladder: No definite focal lesion detected. The uterus and both adnexa are unremarkable. IMPRESSION: 1. Percutaneous feeding tube is seen subhepatic space anterior to the stomach not extending into the gastric lumen. This need to be placed into the stomach ( Its outside the stomach) 2. No evident pelviabdominal free air or free fluid collections. 3. A lesion is seen right para aortic measuring 2.6x1.9 cm. Left pulmonary basal mass seen measuring 3.2 x 2.7 cm and nodule measuring 1.6x1.6 cm. Bilateral rib fractures of indeterminate age. Further assemsnt by CT of the chest is advised. Electronically Signed by: Ernestina Joaquin MD. (10/18/2023 23:33:21 EDT) ADDENDUM: 10/18/2023 23:36:40 EDT [facility] ER was called at [phone] at 10:34 PM [employer], 10/18/2023 and results were verbally communicated to Dr. Michelle Rodríguez. Electronically Signed by: Ernestina Joaquin MD. (10/18/2023 23:36:40 EDT)
--- NOTE | 2023-10-19 01:02 | PCM.HP ---
History of Present Illness - Chief Complaint Chief Complaint: feeding tube problem Date: 10/18/23 History of Present Illness: Ms. SARGENT is a 43 year old female with a past medical history significant for hypertension, myasthenia gravis, thymoma and avascular necrosis status post hip replacement who presents to the hospital after having issues with her feeding tube not working properly. She has not been able to take in feedings and has become quite weak. She denies any nausea, vomiting or diarrhea, but does have some vague abdominal pain associated with this. She has also recently had an insect bite that was treated with antibiotics. CT scan abd w/o contrast has sh own the feeding tube out of position in the space anterior to the stomach, not in the lumen. Surgery has been consulted and is planning to replace the feeding tube. She is resting in bed, awake, hemodynamically stable and in no apparent distress. - Review of Systems Constitutional: Fatigue, Lethargy Eyes: No Vision Changes Ears, Nose, & Throat: No Nose Discharge, No Sinus Drainage Respiratory: No Cough, No Orthopnea, No Short Of Breath Cardiac: No Chest Pain, No Edema, No Palpitations Abdominal/Gastrointestinal: Abdominal Pain, No Nausea, No Vomiting, No Diarrhea Genitourinary Symptoms: No Dysuria, No Frequency, No Hematuria Musculoskeletal: No Arthralgias Skin: No Cellulitis, No Rash Neurological: Lethargy, No Parasthesia Psychological: No Suicidal Ideations Endocrine: No Polyuria, No Polydipsia Medications & Allergies Home Medications: Home Medication List ALPRAZolam 1 MG [Xanax 1 mg] 1 mg PO TID PRN 10/18/23 [History Confirmed 10/18/23] Albuterol Sulfate [Albuterol Sulfate Hfa] 8.5 gm IH DAILY PRN PRN 10/18/23 [History Confirmed 10/18/23] Cephalexin Mh 500 mg [Keflex 500 mg] 500 mg PO TID 10/18/23 [History Confirmed 10/18/23] Fluoxetine HCl 40 mg PO DAILY 10/18/23 [History Confirmed 10/18/23] Omeprazole 40 mg PO BID 10/18/23 [History Confirmed 10/18/23] Ondansetron [Ondansetron Odt ] 4 mg PO DAILY PRN PRN 10/18/23 [History Confirmed 10/18/23] Oxycodone HCl [Roxicodone] 90 mg PO Q4H 10/18/23 [History Confirmed 10/18/23] Prednisone 10 mg [Deltasone 10 mg] 10 mg PO TID 10/18/23 [History Confirmed 10/18/23] SUMAtriptan succinate [Imitrex 50 mg] 100 mg PO DAILY PRN PRN 10/18/23 [History Confirmed 10/18/23] fentaNYL [Fentanyl] 100 mcg TOP UD 10/18/23 [History Confirmed 10/18/23] Allergies/Adverse Reactions: Allergies Allergy/AdvReac Type Severity Reaction Status Date / Time celecoxib [From Celebrex] Allergy Verified 10/18/23 20:19 - Past Medical History Past Medical History: Yes Neurological History: Migraines, Peripheral Neuropathy ENT History: Cataracts Cardiac History: No Pertinent History Respiratory History: COPD, Sleep Apnea Endocrine Medical History: Other Musculoskelatal History: Arthritis, Fibromyalgia, Fractures, Osteoarthritis GI Medical History: GERD History: No Pertinent History Reproductive Disorders: Endometriosis Comment: lupus, myasthenis gravis, myalgia, 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, 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 - Female History Hx Last Menstrual Period: 2008 Are you now?: (unkn) - Past Surgical History Past Surgical History: Yes Neuro Surgical History: No Pertinent History Cardiac History: No Pertinent History Respiratory Surgery: No Pertinent History GI Surgical History: Bowel Surgery, Cholecystectomy Genitourinary Surgical Hx: No Pertinent History Musculskeletal Surgical Hx: Joint Replacement Female Surgical History: No Pertinent History Other Surgical History: feeding tube, L side rib removal, hip replacement, 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 - Social History Smoking Status: Never smoker Exposure to second hand smoke: No Alcohol: None Drug Use: none - Social Determinants of Health Will the patient participate in the screening: Yes Do you worry about a steady place to live?: No Do you have any problems with any of the following?: No known problems In the past 12 months,have you had to go without utilities?: No Have you or anyone in your house had to go without enough: No Transportation Issues: No Has anyone in your support network made you feel unsafe?: No - Physical Exam Vital Signs: Vital Signs - 24 hr Temp Pulse Resp BP BP Pulse Ox 10/19/23 00:37 97 10/19/23 00:00 101 H 112/90 97 10/18/23 23:00 91 H 118/78 94 L 10/18/23 22:00 100 H 116/77 97 10/18/23 21:29 131/81 97 10/18/23 21:16 119/84 93 L 10/18/23 21:15 96 10/18/23 21:10 96 10/18/23 21:03 93 L 10/18/23 20:30 97 H 17 120/68 95 10/18/23 20:00 99 H 18 134/87 95 10/18/23 19:56 97.5 F 125 H 132/83 91 L General Appearance: no apparent distress Neurologic Exam: alert Ears, Nose, Throat Exam: dry mucous membranes Neck Exam: supple Respiratory Exam: No respiratory distress Cardiovascular Exam: regular rate/rhythm Gastrointestinal/Abdomen Exam: soft Extremity Exam: No pedal edema, No swelling Skin Exam: normal color, No rash Results - Labs Lab/Micro Results: Lab Results-Last 24 Hours 10/18/23 10/18/23 10/18/23 Range/Units 20:50 20:50 20:50 WBC 8.8 (3.98-10.04) x10^3/uL RBC 4.12 (3.93-5.22) x10^6/uL Hgb 12.4 (11.2-15.7) g/dL Hct 38.1 (34.1-44.9) % MCV 92.5 (79.4-94.8) fL MCH 30.1 (25.6-32.2) pg MCHC 32.5 (32.2-35.5) g/dL RDW 12.3 (11.7-14.4) % Plt Count 346 (182-369) x10^3/uL MPV 8.7 L (9.4-12.3) fL Gran % 91.0 H (34.0-71.1) % Immature Gran % (Auto) 0.2 (0.001-0.429) % Nucleat RBC Rel Count 0.0 (0.00-0.2) % Eos # (Auto) 0.01 L (0.04-0.36) x10^3/uL Immature Gran # (Auto) 0.02 (0.001-0.031) x10^3u/L Absolute Lymphs (auto) 0.44 L (1.18-3.74) x10^3/uL Absolute Monos (auto) 0.31 (0.24-0.86) x10^3/uL Absolute Nucleated RBC 0.00 (0.00-0.012) x10^3u/L Lymphocytes % 5.0 L (19.3-51.7) % Monocytes % 3.5 L (4.7-12.5) % Eosinophils % 0.1 L (0.7-5.8) % Basophils % 0.2 (0.1-1.2) % Absolute Granulocytes 7.98 H (1.56-6.13) x10^3/uL Basophils # 0.02 (0.01-0.08) x10^3/uL Sodium 135 (135-145) mmol/L Potassium 4.4 (3.5-5.1) mmol/L Chloride 89 L (98-107) mmol/L Carbon Dioxide 36 H (22-30) mmol/L Anion Gap 14.4 (5-15) MEQ/L BUN 21 H (7-17) mg/dL Creatinine 0.42 L (0.52-1.04) mg/dL Estimated GFR 124.4 ML/MIN Glucose 168 H (74-106) mg/dL Lactic Acid (0.4-2.0) Calcium 9.2 (8.4-10.2) mg/dL Total Bilirubin 0.40 (0.2-1.3) mg/dL AST 34 (14-36) U/L ALT 26 (0-35) U/L Alkaline Phosphatase 91 (38-126) U/L Serum Total Protein 7.3 (6.3-8.2) g/dL Albumin 4.2 (3.5-5.0) g/dL Lipase 28 (23-300) U/L Serum HCG, Qual NEGATIVE (NEGATIVE) Urine Color (Yellow) Urine Appearance (Clear) Urine pH (4.6-8.0) Ur Specific Imperial (1.005-1.030) Urine Protein (Negative) Urine Glucose (UA) (Negative) mg/dL Urine Ketones (Negative) Urine Blood (Negative) Urine Nitrite (Negative) Urine Bilirubin (Negative) Urine Urobilinogen (0.2) mg/dL Ur Leukocyte Esterase (Negative) U Hyaline Cast (Auto) (0-2) /LPF Urine Microscopic RBC (0-5) /HPF Urine Microscopic WBC (0-5) /HPF Ur Epithelial Cells (None Seen) /HPF Urine Bacteria (None Seen) /HPF Urine Culture Reflexed (NO) Slides for Path Review YES 10/18/23 10/18/23 Range/Units 20:52 21:11 WBC (3.98-10.04) x10^3/uL RBC (3.93-5.22) x10^6/uL Hgb (11.2-15.7) g/dL Hct (34.1-44.9) % MCV (79.4-94.8) fL MCH (25.6-32.2) pg MCHC (32.2-35.5) g/dL RDW (11.7-14.4) % Plt Count (182-369) x10^3/uL MPV (9.4-12.3) fL Gran % (34.0-71.1) % Immature Gran % (Auto) (0.001-0.429) % Nucleat RBC Rel Count (0.00-0.2) % Eos # (Auto) (0.04-0.36) x10^3/uL Immature Gran # (Auto) (0.001-0.031) x10^3u/L Absolute Lymphs (auto) (1.18-3.74) x10^3/uL Absolute Monos (auto) (0.24-0.86) x10^3/uL Absolute Nucleated RBC (0.00-0.012) x10^3u/L Lymphocytes % (19.3-51.7) % Monocytes % (4.7-12.5) % Eosinophils % (0.7-5.8) % Basophils % (0.1-1.2) % Absolute Granulocytes (1.56-6.13) x10^3/uL Basophils # (0.01-0.08) x10^3/uL Sodium (135-145) mmol/L Potassium (3.5-5.1) mmol/L Chloride (98-107) mmol/L Carbon Dioxide (22-30) mmol/L Anion Gap (5-15) MEQ/L BUN (7-17) mg/dL Creatinine (0.52-1.04) mg/dL Estimated GFR ML/MIN Glucose (74-106) mg/dL Lactic Acid 1.1 (0.4-2.0) Calcium (8.4-10.2) mg/dL Total Bilirubin (0.2-1.3) mg/dL AST (14-36) U/L ALT (0-35) U/L Alkaline Phosphatase (38-126) U/L Serum Total Protein (6.3-8.2) g/dL Albumin (3.5-5.0) g/dL Lipase (23-300) U/L Serum HCG, Qual (NEGATIVE) Urine Color Dark Yellow A (Yellow) Urine Appearance Cloudy A (Clear) Urine pH 6.0 (4.6-8.0) Ur Specific [place] >=1.030 A (1.005-1.030) Urine Protein Trace A (Negative) Urine Glucose (UA) Negative (Negative) mg/dL Urine Ketones Trace A (Negative) Urine Blood Negative (Negative) Urine Nitrite Negative (Negative) Urine Bilirubin Negative (Negative) Urine Urobilinogen 1.0 A (0.2) mg/dL Ur Leukocyte Esterase Moderate A (Negative) U Hyaline Cast (Auto) None Seen (0-2) /LPF Urine Microscopic RBC 0-2 (0-5) /HPF Urine Microscopic WBC 3-5 (0-5) /HPF Ur Epithelial Cells Few (None Seen) /HPF Urine Bacteria Rare A (None Seen) /HPF Urine Culture Reflexed YES (NO) Slides for Path Review - Radiology Impressions Radiology Exams & Impressions: Radiology Procedures Category Date Time Status ABDOMEN AND PELVIS W/0 CONTRAS [CT] Stat Exams 10/18/23 20:23 Completed Assessment/Plan (1) PEG tube malfunction Current Visit: Yes Status: Acute Assessment & Plan: PEG tube out of position, will require surgical revision/replacement 1. Surgery consult 2. Keep NPO 3. IVFs 4. Hold anticoagulation in preparation for surgery Code(s): K94.23 - GASTROSTOMY MALFUNCTION (2) Myasthenia gravis associated with thymoma Current Visit: Yes Status: Acute Assessment & Plan: Stable without respiratory compromise Code(s): G70.00 - MYASTHENIA GRAVIS WITHOUT (ACUTE) EXACERBATION; D49.89 - NEOPLASM OF UNSPECIFIED BEHAVIOR OF OTHER SPECIFIED SITES (3) Generalized weakness Current Visit: Yes Status: Acute Assessment & Plan: Likely from failed tube feeds/malnutrition/dehydration 1. IVFs 2. Replete PEG and resume tube feeds when able 3. PT/OT eval Code(s): R53.1 - WEAKNESS (4) Infection of thumb Current Visit: Yes Status: Acute Assessment & Plan: Status post recent antibiotics 1. Pt defers antibiotics at this time 2. Will monitor WBC, s/s of infection Code(s): L08.9 - LOCAL INFECTION OF THE SKIN AND SUBCUTANEOUS TISSUE, UNSP Telemedicine Encounter - Telemedicine Encounter Telemedicine Encounter: "The entirety of this encounter was performed via Telemedicine" This visit was performed using real-time audio and video connection between my location and thepatients locationwith the assistance of a surrogateat the patients location. Written or verbal consent was obtained from the patient/guardian to perform this visit usingsyn[employer]lemedicine technology. Any patient questions regarding the telemedicine interaction were answered.
[2023-10-19] MEDS ORDERED: FEVERALL 650 MG PR PRN (01:23)
[2023-10-19] MEDS ORDERED: Zofran 4 MG/2 ML VIAL IV PRN (01:23)
[2023-10-19] MEDS: Hydromorphone 1 mg/ml Injection IV PRN (02:33)
[2023-10-19] MEDS: XANAX 1 MG PO PRN (02:33)
[2023-10-19] MEDS: Sodium Chloride 0.9% 1000 ML 1,000 ML IV SCH (02:33)
[2023-10-19] MEDS: NON-FORMULARY ITEM PO SCH (04:16)
[2023-10-19] MEDS ORDERED: DUONEB 0.5-3 MG/3 ml Neb IH PRN (05:22)
[2023-10-19 06:29] LABS: Absolute Neutrophil Ct (ANC) 3.92 x10^3/uL (1.56-6.13); BASOPHIL % 0.3 % (0.1-1.2); Basophil (Absolute #) 0.02 x10^3/uL (0.01-0.08); Eosinophil % 0.6 % (0.7-5.8); Eosinophil (Absolute #) 0.04 x10^3/uL (0.04-0.36); Hematocrit 33.7 % (34.1-44.9); Hemoglobin 10.6 g/dL (11.2-15.7); IMMATURE GRAN # 0.02 x10^3u/L (0.001-0.031); IMMATURE GRAN % 0.3 % (0.001-0.429); Lymphocyte (Absolute #) 1.45 x10^3/uL (1.18-3.74); Lymphocytes % 22.7 % (19.3-51.7); Mean Cell Volume 93.4 fL (79.4-94.8); Mean Corpuscular Hemoglobin 29.4 pg (25.6-32.2); Mean Corpuscular Hgb Concent. 31.5 g/dL (32.2-35.5); Mean Platelet Volume 8.7 fL (9.4-12.3); Monocyte (Absolute #) 0.95 x10^3/uL (0.24-0.86); Monocytes % 14.8 % (4.7-12.5); Neutrophil % 61.3 % (34.0-71.1); Platelet Count 281 x10^3/uL (182-369); Red Blood Count 3.61 x10^6/uL (3.93-5.22); Red Cell Distribution Width 12.3 % (11.7-14.4); White Blood Count 6.4 x10^3/uL (3.98-10.04)
[2023-10-19 06:39] LABS: ALBUMIN 3.7 g/dL (3.5-5.0); BILIRUBIN,TOTAL 0.2 mg/dL (0.2-1.3); Calcium 8.7 mg/dL (8.4-10.2); Creatinine 1 0.44 mg/dL (0.52-1.04); Potassium 3.8 mmol/L (3.5-5.1); Total Protein 6.3 g/dL (6.3-8.2)
[2023-10-19 06:59] LABS: ANION GAP 13.8 MEQ/L (5-15)
[2023-10-19] MEDS ORDERED: DUONEB 0.5-3 MG/3 ml Neb IH SCH (07:00)
[2023-10-19] MEDS: PATIENT OWN MEDICATION PO SCH (08:05)
[2023-10-19 10:29] LABS: VBG BASE EXCESS 14.8 (-2.0-2.0); VBG HCO3- 36.6 meq/L (22-28); VBG HEMOGLOBIN 13.6; VBG O2 SATURATION 94.9 (95-100); VBG POTASSIUM 5.7 (3.5-5.1)
[2023-10-19 10:31] LABS: VBG pH 7.64 (7.32-7.42)
[2023-10-19] MEDS ORDERED: CEFAZOLIN 2 GM/100 ML NaCl 2 GM/100 ML IVPB IV SCH (10:45)
[2023-10-19] MEDS ORDERED: Narcan 0.4 MG/ML IV PRN (10:59)
[2023-10-19] MEDS ORDERED: NON-FORMULARY ITEM (Sumatriptan Succinate [Imitrex 50 Mg] 50 MG Tablet) PO PRN (11:00)
[2023-10-19] MEDS ORDERED: MEDICATION INTERVENTION MC SCH (11:15)
--- NOTE | 2023-10-19 11:56 | PCM.NOTE ---
Date and Time: 10/19/23 1149 Subjective Assessment: 10/19/23 Ms. SARGENT is a 43 year old female with a past medical history significant for hypertension, myasthenia gravis, thymoma and avascular necrosis status post hip replacement. She presented to the hospital on 10/18/23 after having issues with her feeding tube not working properly x 1 week. She has not been able to take in feedings and has become quite weak. She denies any nausea, vomiting or diarrhea, but does have some vague abdominal pain associated with this. She has also recently had an insect bite that started on 10/03 of her left hand thumb that was treated with Keflex. Will continue IV medication. She had an I&D of her thumb in the ER on admission. Surgery consulted for further eval. CT scan abd w/o contrast has shown the feeding tube out of position in the space anterior to the stomach, not in the lumen. Surgery has been consulted and is planning to replace the feeding tube today. Pt c/o of migraine and Imitrex restarted. Narcan added as she takes high dose narcotics along with a benzo. She denies CP, SOB, N/V/D. - Review of Systems Constitutional: No Fever, No Chills Eyes: No Symptoms Ears, Nose, & Throat: No Symptoms Respiratory: No Cough, No Short Of Breath Cardiac: No Chest Pain, No Edema, No Syncope Abdominal/Gastrointestinal: Abdominal Pain, No Nausea, No Vomiting, No Diarrhea Genitourinary Symptoms: No Dysuria Musculoskeletal: No Back Pain, No Neck Pain Skin: Skin Lesions (left hand thumb), No Rash Neurological: Headache, No Dizziness, No Focal Weakness, No Sensory Changes Psychological: No Symptoms Endocrine: No Symptoms Hematologic/Lymphatic: No Symptoms Immunological/Allergic: No Symptoms Objective Exam General Appearance: no apparent distress, alert Neurologic Exam: alert, oriented x 3, cooperative, normal mood/affect, nml cerebellar function, sensation nml, motor weakness, No motor deficits Skin Exam: normal color, warm, dry, other (lesion to left hand thumb) Wound Assessment: Skin/Wound Assessment Wound/Incision Assessment Start: 10/19/23 01:05 Text: Status: Active Freq: Q4H Protocol: Document 10/19/23 02:00 AK (Rec: 10/19/23 04:14 PAOLO [id number]) Wound/Incision Assessment left thumb Wound Assessment Admission Wound Type spider bite s/p I&D Wound Stage Non Pressure Wound Dressing Status Dry & Intact Drainage Amount None Primary Dressing Non-Adherent Gauze Pads Secondary Dressing Gauze Roll/Wrap Wound Photo Photo Taken No Eye Exam: PERRL, EOMI, eyes nml inspection Ears, Nose, Throat Exam: normal ENT inspection, pharynx normal, moist mucous membranes Neck Exam: normal inspection, non-tender, supple, full range of motion Respiratory Exam: normal breath sounds, lungs clear, No respiratory distress Cardiovascular Exam: regular rate/rhythm, normal heart sounds Gastrointestinal/Abdomen Exam: soft, tenderness, No mass Extremity Exam: normal inspection, normal range of motion Back Exam: normal inspection, normal range of motion, No CVA tenderness, No vertebral tenderness Pelvic Exam: deferred Rectal Exam: deferred Objective Data Vital Signs: Vital Signs - 24 hr Temp Pulse Resp BP BP Pulse Ox 10/19/23 11:26 98.0 F 95 H 20 100/55 100 10/19/23 10:56 98.0 F 96 H 20 108/64 100 10/19/23 10:45 96 H 20 100 10/19/23 08:00 18 10/19/23 07:50 98.0 F 86 17 108/64 98 10/19/23 04:00 97.5 F 90 14 107/68 98 10/19/23 03:47 102 H 20 100 10/19/23 01:50 97.9 F 94 H 17 114/85 97 10/19/23 01:01 97 10/19/23 00:37 97 10/19/23 00:00 101 H 112/90 97 10/18/23 23:00 91 H 118/78 94 L 10/18/23 22:00 100 H 116/77 97 10/18/23 21:29 131/81 97 10/18/23 21:16 119/84 93 L 10/18/23 21:15 96 10/18/23 21:10 96 10/18/23 21:03 93 L 10/18/23 20:30 97 H 17 120/68 95 10/18/23 20:00 99 H 18 134/87 95 10/18/23 19:56 97.5 F 125 H 132/83 91 L Pain Assessment - Last Documented Pain Intensity 7 Pain Scale Used 0-10 Pain Scale Intake and Output: Intake & Output 10/16/23 10/17/23 10/18/23 10/19/23 11:59 11:59 11:59 11:59 Intake Total 61 Balance 61 Weight 71.5 kg Lab Results: Lab Results-Last 24 Hours 10/18/23 10/18/23 10/18/23 Range/Units 20:50 20:50 20:50 WBC 8.8 (3.98-10.04) x10^3/uL RBC 4.12 (3.93-5.22) x10^6/uL Hgb 12.4 (11.2-15.7) g/dL Hct 38.1 (34.1-44.9) % MCV 92.5 (79.4-94.8) fL MCH 30.1 (25.6-32.2) pg MCHC 32.5 (32.2-35.5) g/dL RDW 12.3 (11.7-14.4) % Plt Count 346 (182-369) x10^3/uL MPV 8.7 L (9.4-12.3) fL Gran % 91.0 H (34.0-71.1) % Immature Gran % (Auto) 0.2 (0.001-0.429) % Nucleat RBC Rel Count 0.0 (0.00-0.2) % Eos # (Auto) 0.01 L (0.04-0.36) x10^3/uL Immature Gran # (Auto) 0.02 (0.001-0.031) x10^3u/L Absolute Lymphs (auto) 0.44 L (1.18-3.74) x10^3/uL Absolute Monos (auto) 0.31 (0.24-0.86) x10^3/uL Absolute Nucleated RBC 0.00 (0.00-0.012) x10^3u/L Lymphocytes % 5.0 L (19.3-51.7) % Monocytes % 3.5 L (4.7-12.5) % Eosinophils % 0.1 L (0.7-5.8) % Basophils % 0.2 (0.1-1.2) % Absolute Granulocytes 7.98 H (1.56-6.13) x10^3/uL Basophils # 0.02 (0.01-0.08) x10^3/uL pO2/FiO2 Ratio % VBG pH (7.32-7.42) VBG pCO2 at Pat Temp (42-55) mm/Hg VBG pO2 at Pat Temp (25-40) mm/Hg VBG HCO3 (22-28) meq/L VBG O2 Sat (Angélica) (95-100) VBG Base Excess (-2.0-2.0) VBG Hemoglobin VBG Carboxyhemoglobin (0.0-6.9) % T HGB POC Potassium (3.5-5.1) Sodium 135 (135-145) mmol/L Potassium 4.4 (3.5-5.1) mmol/L Chloride 89 L (98-107) mmol/L Carbon Dioxide 36 H (22-30) mmol/L Anion Gap 14.4 (5-15) MEQ/L BUN 21 H (7-17) mg/dL Creatinine 0.42 L (0.52-1.04) mg/dL Estimated GFR 124.4 ML/MIN Glucose 168 H (74-106) mg/dL Lactic Acid (0.4-2.0) Calcium 9.2 (8.4-10.2) mg/dL Total Bilirubin 0.40 (0.2-1.3) mg/dL AST 34 (14-36) U/L ALT 26 (0-35) U/L Alkaline Phosphatase 91 (38-126) U/L Serum Total Protein 7.3 (6.3-8.2) g/dL Albumin 4.2 (3.5-5.0) g/dL Lipase 28 (23-300) U/L Serum HCG, Qual NEGATIVE (NEGATIVE) Urine Color (Yellow) Urine Appearance (Clear) Urine pH (4.6-8.0) Ur Specific [place] (1.005-1.030) Urine Protein (Negative) Urine Glucose (UA) (Negative) mg/dL Urine Ketones (Negative) Urine Blood (Negative) Urine Nitrite (Negative) Urine Bilirubin (Negative) Urine Urobilinogen (0.2) mg/dL Ur Leukocyte Esterase (Negative) U Hyaline Cast (Auto) (0-2) /LPF Urine Microscopic RBC (0-5) /HPF Urine Microscopic WBC (0-5) /HPF Ur Epithelial Cells (None Seen) /HPF Urine Bacteria (None Seen) /HPF Urine Culture Reflexed (NO) Slides for Path Review YES 10/18/23 10/18/23 10/19/23 Range/Units 20:52 21:11 05:30 WBC 6.4 (3.98-10.04) x10^3/uL RBC 3.61 L (3.93-5.22) x10^6/uL Hgb 10.6 L (11.2-15.7) g/dL Hct 33.7 L (34.1-44.9) % MCV 93.4 (79.4-94.8) fL MCH 29.4 (25.6-32.2) pg MCHC 31.5 L (32.2-35.5) g/dL RDW 12.3 (11.7-14.4) % Plt Count 281 (182-369) x10^3/uL MPV 8.7 L (9.4-12.3) fL Gran % 61.3 (34.0-71.1) % Immature Gran % (Auto) 0.3 (0.001-0.429) % Nucleat RBC Rel Count 0.0 (0.00-0.2) % Eos # (Auto) 0.04 (0.04-0.36) x10^3/uL Immature Gran # (Auto) 0.02 (0.001-0.031) x10^3u/L Absolute Lymphs (auto) 1.45 (1.18-3.74) x10^3/uL Absolute Monos (auto) 0.95 H (0.24-0.86) x10^3/uL Absolute Nucleated RBC 0.00 (0.00-0.012) x10^3u/L Lymphocytes % 22.7 (19.3-51.7) % Monocytes % 14.8 H (4.7-12.5) % Eosinophils % 0.6 L (0.7-5.8) % Basophils % 0.3 (0.1-1.2) % Absolute Granulocytes 3.92 (1.56-6.13) x10^3/uL Basophils # 0.02 (0.01-0.08) x10^3/uL pO2/FiO2 Ratio % VBG pH (7.32-7.42) VBG pCO2 at Pat Temp (42-55) mm/Hg VBG pO2 at Pat Temp (25-40) mm/Hg VBG HCO3 (22-28) meq/L VBG O2 Sat (Angélica) (95-100) VBG Base Excess (-2.0-2.0) VBG Hemoglobin VBG Carboxyhemoglobin (0.0-6.9) % T HGB POC Potassium (3.5-5.1) Sodium (135-145) mmol/L Potassium (3.5-5.1) mmol/L Chloride (98-107) mmol/L Carbon Dioxide (22-30) mmol/L Anion Gap (5-15) MEQ/L BUN (7-17) mg/dL Creatinine (0.52-1.04) mg/dL Estimated GFR ML/MIN Glucose (74-106) mg/dL Lactic Acid 1.1 (0.4-2.0) Calcium (8.4-10.2) mg/dL Total Bilirubin (0.2-1.3) mg/dL AST (14-36) U/L ALT (0-35) U/L Alkaline Phosphatase (38-126) U/L Serum Total Protein (6.3-8.2) g/dL Albumin (3.5-5.0) g/dL Lipase (23-300) U/L Serum HCG, Qual (NEGATIVE) Urine Color Dark Yellow A (Yellow) Urine Appearance Cloudy A (Clear) Urine pH 6.0 (4.6-8.0) Ur Specific [place] >=1.030 A (1.005-1.030) Urine Protein Trace A (Negative) Urine Glucose (UA) Negative (Negative) mg/dL Urine Ketones Trace A (Negative) Urine Blood Negative (Negative) Urine Nitrite Negative (Negative) Urine Bilirubin Negative (Negative) Urine Urobilinogen 1.0 A (0.2) mg/dL Ur Leukocyte Esterase Moderate A (Negative) U Hyaline Cast (Auto) None Seen (0-2) /LPF Urine Microscopic RBC 0-2 (0-5) /HPF Urine Microscopic WBC 3-5 (0-5) /HPF Ur Epithelial Cells Few (None Seen) /HPF Urine Bacteria Rare A (None Seen) /HPF Urine Culture Reflexed YES (NO) Slides for Path Review 10/19/23 10/19/23 Range/Units 05:30 10:29 WBC (3.98-10.04) x10^3/uL RBC (3.93-5.22) x10^6/uL Hgb (11.2-15.7) g/dL Hct (34.1-44.9) % MCV (79.4-94.8) fL MCH (25.6-32.2) pg MCHC (32.2-35.5) g/dL RDW (11.7-14.4) % Plt Count (182-369) x10^3/uL MPV (9.4-12.3) fL Gran % (34.0-71.1) % Immature Gran % (Auto) (0.001-0.429) % Nucleat RBC Rel Count (0.00-0.2) % Eos # (Auto) (0.04-0.36) x10^3/uL Immature Gran # (Auto) (0.001-0.031) x10^3u/L Absolute Lymphs (auto) (1.18-3.74) x10^3/uL Absolute Monos (auto) (0.24-0.86) x10^3/uL Absolute Nucleated RBC (0.00-0.012) x10^3u/L Lymphocytes % (19.3-51.7) % Monocytes % (4.7-12.5) % Eosinophils % (0.7-5.8) % Basophils % (0.1-1.2) % Absolute Granulocytes (1.56-6.13) x10^3/uL Basophils # (0.01-0.08) x10^3/uL pO2/FiO2 Ratio 21.0 % VBG pH 7.64 H* (7.32-7.42) VBG pCO2 at Pat Temp 34 L (42-55) mm/Hg VBG pO2 at Pat Temp 57 H (25-40) mm/Hg VBG HCO3 36.6 H* (22-28) meq/L VBG O2 Sat (Angélica) 94.9 L (95-100) VBG Base Excess 14.8 H (-2.0-2.0) VBG Hemoglobin 13.6 VBG Carboxyhemoglobin 5.0 (0.0-6.9) % T HGB POC Potassium 5.7 H (3.5-5.1) Sodium 137 (135-145) mmol/L Potassium 3.8 (3.5-5.1) mmol/L Chloride 92 L (98-107) mmol/L Carbon Dioxide 35 H (22-30) mmol/L Anion Gap 13.8 (5-15) MEQ/L BUN 14 (7-17) mg/dL Creatinine 0.44 L (0.52-1.04) mg/dL Estimated GFR 123.0 ML/MIN Glucose 103 (74-106) mg/dL Lactic Acid (0.4-2.0) Calcium 8.7 (8.4-10.2) mg/dL Total Bilirubin 0.20 (0.2-1.3) mg/dL AST 28 (14-36) U/L ALT 20 (0-35) U/L Alkaline Phosphatase 81 (38-126) U/L Serum Total Protein 6.3 (6.3-8.2) g/dL Albumin 3.7 (3.5-5.0) g/dL Lipase (23-300) U/L Serum HCG, Qual (NEGATIVE) Urine Color (Yellow) Urine Appearance (Clear) Urine pH (4.6-8.0) Ur Specific [place] (1.005-1.030) Urine Protein (Negative) Urine Glucose (UA) (Negative) mg/dL Urine Ketones (Negative) Urine Blood (Negative) Urine Nitrite (Negative) Urine Bilirubin (Negative) Urine Urobilinogen (0.2) mg/dL Ur Leukocyte Esterase (Negative) U Hyaline Cast (Auto) (0-2) /LPF Urine Microscopic RBC (0-5) /HPF Urine Microscopic WBC (0-5) /HPF Ur Epithelial Cells (None Seen) /HPF Urine Bacteria (None Seen) /HPF Urine Culture Reflexed (NO) Slides for Path Review Radiology Exams: Radiology Procedures Category Date Time Status ABDOMEN AND PELVIS W/0 CONTRAS [CT] Stat Exams 10/18/23 20:23 Completed Assessment/Plan (1) PEG tube malfunction Current Visit: Yes Status: Acute Assessment & Plan: - Pt has not been getting tube feeding for 1 week - Now has related weakness- PT ordered - CT abd/ Pelvis: IMPRESSION: 1. Percutaneous feeding tube is seen subhepatic space anterior to the stomach not extending into the gastric lumen. This need to be placed into the stomach ( Its outside the stomach) 2. No evident pelviabdominal free air or free fluid collections. 3. A lesion is seen right para aortic measuring 2.6x1.9 cm. Left pulmonary basal mass seen measuring 3.2 x 2.7 cm and nodule measuring 1.6x1.6 cm. Bilateral rib fractures of indeterminate age. Further assessment by CT of the chest is advised. - Nutrition consult to restart tube feedings Code(s): K94.23 - GASTROSTOMY MALFUNCTION (2) Infection of thumb Current Visit: Yes Status: Acute Assessment & Plan: - GS consulted - I&D in ER on admission - Cefazolin started IV Code(s): L08.9 - LOCAL INFECTION OF THE SKIN AND SUBCUTANEOUS TISSUE, UNSP (3) Generalized weakness Current Visit: Yes Status: Acute Assessment & Plan: - PT eval - 2:2 not getting feedings X1 week Code(s): R53.1 - WEAKNESS (4) Myasthenia gravis associated with thymoma Current Visit: Yes Status: Acute Assessment & Plan: - Known hx - F/u Op for meds and treatments Code(s): G70.00 - MYASTHENIA GRAVIS WITHOUT (ACUTE) EXACERBATION; D49.89 - NEOPLASM OF UNSPECIFIED BEHAVIOR OF OTHER SPECIFIED SITES (5) Migraine Current Visit: Yes Status: Chronic Assessment & Plan: - restart imitrex VTE: SCD Next of KIN: Cece Dao [phone] Code status: Full D/C plan: 1-2 days Code(s): G43.909 - MIGRAINE, UNSP, NOT INTRACTABLE, WITHOUT STATUS MIGRAINOSUS
[2023-10-19] MEDS ORDERED: Versed 2 MG/2 ML Injection ONE (12:12)
[2023-10-19] MEDS ORDERED: Xylocaine-Mpf 2% 5 Ml Vial ONE (12:12)
[2023-10-19] MEDS ORDERED: DIPRIVAN 200 MG/20 ML IV ONE ×2 (12:12→12:49)
[2023-10-19] MEDS ORDERED: DEXMEDETOMIDINE 80 MCG/20ML-NS IV ONE (12:12)
[2023-10-19] MEDS ORDERED: PHENYLEPHRINE HCL ONE (12:43)
[2023-10-19] MEDS ORDERED: SUBLIMAZE 100 MCG/2 ML ONE (13:34)
[2023-10-19] MEDS ORDERED: Compazine 10 MG/2 ML ONE (13:38)
[2023-10-19] MEDS: DELTASONE 10 MG PO SCH (14:10)
[2023-10-19] MEDS: PATIENT OWN MEDICATION PO PRN (14:11)
[2023-10-19] MEDS: Prozac 20 MG PO SCH (14:11)
[2023-10-19] MEDS: Protonix 40MG Tablet PO SCH (14:11)
[2023-10-19] MEDS ORDERED: TYLENOL 325 MG PO PRN (14:22)
--- NOTE | 2023-10-19 19:31 | XRAY ---
Indication: Thumb laceration. Comparison: None 2 view left thumb demonstrates distal soft tissue swelling/laceration. No other bony, articular, or soft tissue abnormalities.
[2023-10-19] MEDS: Duragesic 50MCG Patch TD SCH (20:17)
[2023-10-20] MEDS: XANAX 1 MG PO PRN (00:39)
--- NOTE | 2023-10-20 05:13 | PCM.NOTE ---
Date and Time: 10/20/23 0511 Subjective Assessment: HPI: Ms. 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 CT imaging confirmed the feeding tube out of position in the space anterior to the stomach, not in the lumen. Surgery consulted and feeding tube replaced 10/19/23. Assistant Teaching Professor consulted and tube feedings resumed with Jevity at 75 ml/hr over 14 hours to meet 1500 calories. Patient states she is feeling much better today with the resumption of tube feedings. Surgery debrided left thumb yesterday and patient endorses increased pain. Will start her on liquid keflex as patient has trouble swallowing pills. She does have the equipment and supplies for feedings at home but states she did not receive instructions on how to do it herself as she was in the hospital during that appt. We will set her on on discharge for [facility]. Most likely will discharge tomorrow. - Review of Systems Constitutional: Weakness Eyes: No Symptoms Ears, Nose, & Throat: No Symptoms Respiratory: No Symptoms Cardiac: No Symptoms Abdominal/Gastrointestinal: No Symptoms Genitourinary Symptoms: No Symptoms Musculoskeletal: No Symptoms Skin: Skin Lesions (Left thumb s/p debridement), Other Neurological: No Symptoms Psychological: No Symptoms Endocrine: No Symptoms Hematologic/Lymphatic: No Symptoms Immunological/Allergic: No Symptoms Objective Exam General Appearance: no apparent distress Neurologic Exam: alert, oriented x 3, cooperative Skin Exam: normal color, other (left thumb covered in dressing) Wound Assessment: Skin/Wound Assessment Wound/Incision Assessment Start: 10/19/23 01:05 Text: Status: Active Freq: Q6H Protocol: Document 10/20/23 02:00 MM (Rec: 10/20/23 02:03 MM [id number]) Wound/Incision Assessment Anterior Abdomen Wound Assessment Shift Assessment Wound Type S/P PEG tube placement Wound Stage Non Pressure Wound Dressing Status Dry & Intact Drainage Amount None Drainage Odor None/Absent Comment S/P PEG tube placement- Dressing over new PEG site removed, skin around new placement is clean and dry, no drainage noted. previous PEG insertion site remains to central abdomen, no drainge noted, skin surrounding is clean and dry no redness noted at this time, dressing changed at this time, telfa placed over opening and secured with tegaderm. Remains true. left thumb Wound Assessment Shift Assessment Wound Type spider bite s/p I&D Wound Stage Non Pressure Wound Dressing Status Dry & Intact Drainage Amount None Primary Dressing Non-Adherent Gauze Pads Secondary Dressing Gauze Roll/Wrap Comment dressing in place, remains C/D /I Wound Photo Photo Taken No Eye Exam: PERRL Ears, Nose, Throat Exam: normal ENT inspection Neck Exam: normal inspection Respiratory Exam: normal breath sounds, lungs clear Cardiovascular Exam: regular rate/rhythm, normal heart sounds Gastrointestinal/Abdomen Exam: soft, normal bowel sounds Extremity Exam: normal inspection Back Exam: normal inspection Pelvic Exam: deferred Rectal Exam: deferred Objective Data Vital Signs: Vital Signs - 24 hr Temp Pulse Resp BP Pulse Ox 10/20/23 04:00 98.2 F 98 H 18 117/72 97 10/20/23 00:00 23 10/19/23 22:00 97.4 F 97 H 23 107/56 100 10/19/23 20:00 16 10/19/23 19:15 65 16 96 10/19/23 17:05 109 H 126/66 10/19/23 16:00 16 10/19/23 14:35 98.7 F 89 18 99/57 100 10/19/23 14:21 99.0 F 94 H 16 99/55 100 10/19/23 14:05 98.9 F 93 H 18 110/58 99 10/19/23 12:00 18 10/19/23 11:26 98.0 F 95 H 20 100/55 100 10/19/23 10:56 98.0 F 96 H 20 108/64 100 10/19/23 10:45 96 H 20 100 10/19/23 08:00 18 10/19/23 07:50 98.0 F 86 17 108/64 98 Pain Assessment - Last Documented Pain Intensity 0 Pain Scale Used 0-10 Pain Scale Intake and Output: Intake & Output 10/17/23 10/18/23 10/19/23 10/20/23 11:59 11:59 11:59 11:59 Intake Total 61 767 Output Total 1050 Balance 61 -283 Weight 71.5 kg Lab Results: Lab Results-Last 24 Hours 10/19/23 10/19/23 10/19/23 Range/Units 05:30 05:30 10:29 WBC 6.4 (3.98-10.04) x10^3/uL RBC 3.61 L (3.93-5.22) x10^6/uL Hgb 10.6 L (11.2-15.7) g/dL Hct 33.7 L (34.1-44.9) % MCV 93.4 (79.4-94.8) fL MCH 29.4 (25.6-32.2) pg MCHC 31.5 L (32.2-35.5) g/dL RDW 12.3 (11.7-14.4) % Plt Count 281 (182-369) x10^3/uL MPV 8.7 L (9.4-12.3) fL Gran % 61.3 (34.0-71.1) % Immature Gran % (Auto) 0.3 (0.001-0.429) % Nucleat RBC Rel Count 0.0 (0.00-0.2) % Eos # (Auto) 0.04 (0.04-0.36) x10^3/uL Immature Gran # (Auto) 0.02 (0.001-0.031) x10^3u/L Absolute Lymphs (auto) 1.45 (1.18-3.74) x10^3/uL Absolute Monos (auto) 0.95 H (0.24-0.86) x10^3/uL Absolute Nucleated RBC 0.00 (0.00-0.012) x10^3u/L Lymphocytes % 22.7 (19.3-51.7) % Monocytes % 14.8 H (4.7-12.5) % Eosinophils % 0.6 L (0.7-5.8) % Basophils % 0.3 (0.1-1.2) % Absolute Granulocytes 3.92 (1.56-6.13) x10^3/uL Basophils # 0.02 (0.01-0.08) x10^3/uL pO2/FiO2 Ratio 21.0 % VBG pH 7.64 H* (7.32-7.42) VBG pCO2 at Pat Temp 34 L (42-55) mm/Hg VBG pO2 at Pat Temp 57 H (25-40) mm/Hg VBG HCO3 36.6 H* (22-28) meq/L VBG O2 Sat (Angélica) 94.9 L (95-100) VBG Base Excess 14.8 H (-2.0-2.0) VBG Hemoglobin 13.6 VBG Carboxyhemoglobin 5.0 (0.0-6.9) % T HGB POC Potassium 5.7 H (3.5-5.1) Sodium 137 (135-145) mmol/L Potassium 3.8 (3.5-5.1) mmol/L Chloride 92 L (98-107) mmol/L Carbon Dioxide 35 H (22-30) mmol/L Anion Gap 13.8 (5-15) MEQ/L BUN 14 (7-17) mg/dL Creatinine 0.44 L (0.52-1.04) mg/dL Estimated GFR 123.0 ML/MIN Glucose 103 (74-106) mg/dL Calcium 8.7 (8.4-10.2) mg/dL Total Bilirubin 0.20 (0.2-1.3) mg/dL AST 28 (14-36) U/L ALT 20 (0-35) U/L Alkaline Phosphatase 81 (38-126) U/L Serum Total Protein 6.3 (6.3-8.2) g/dL Albumin 3.7 (3.5-5.0) g/dL Radiology Exams: Radiology Procedures Category Date Time Status ABDOMEN AND PELVIS W/0 CONTRAS [CT] Stat Exams 10/18/23 20:23 Completed HAND (2 VIEW) Routine Exams 10/19/23 14:10 Completed Assessment/Plan (1) PEG tube malfunction Current Visit: Yes Status: Acute Assessment & Plan: -CT abd/pelvis with confirmation of feeding tube out of position in the space anterior to the stomach, not in the lumen -Surgery replaced feeding tube 10/19/23 -Assistant Teaching Professor consulted and tube feedings resumed with Jevity at 75 ml/hr over 14 hours to meet 1500 calories - feedings resumed -[facility] Code(s): K94.23 - GASTROSTOMY MALFUNCTION (2) Generalized weakness Current Visit: Yes Status: Acute Assessment & Plan: - PT eval ? home rehab - 2:2 not getting feedings X1 week Code(s): R53.1 - WEAKNESS (3) Infection of thumb Current Visit: Yes Status: Acute Assessment & Plan: - GS consulted - I&D in ER on admission - Cefazolin started IV - will continue Keflex x 7 days suspension due to difficulty swallowing -Silvadene/lidocaine topically Code(s): L08.9 - LOCAL INFECTION OF THE SKIN AND SUBCUTANEOUS TISSUE, UNSP (4) Myasthenia gravis associated with thymoma Current Visit: Yes Status: Acute Assessment & Plan: - Known hx - F/u Op for meds and treatments Code(s): G70.00 - MYASTHENIA GRAVIS WITHOUT (ACUTE) EXACERBATION; D49.89 - NEOPLASM OF UNSPECIFIED BEHAVIOR OF OTHER SPECIFIED SITES (5) Migraine Current Visit: Yes Status: Chronic Assessment & Plan: - restart imitrex VTE: SCD Next of KIN: Cece Dao [phone] Code status: Full D/C plan: 1-2 days Code(s): G43.909 - MIGRAINE, UNSP, NOT INTRACTABLE, WITHOUT STATUS MIGRAINOSUS
[2023-10-20 05:32] LABS: Hemoglobin 10.7 g/dL (11.2-15.7); Mean Cell Volume 94.7 fL (79.4-94.8); Mean Corpuscular Hemoglobin 29.8 pg (25.6-32.2); Mean Corpuscular Hgb Concent. 31.5 g/dL (32.2-35.5); Platelet Count 292 x10^3/uL (182-369); Red Blood Count 3.59 x10^6/uL (3.93-5.22); Red Cell Distribution Width 12.2 % (11.7-14.4); White Blood Count 6.5 x10^3/uL (3.98-10.04)
[2023-10-20 05:48] LABS: ALBUMIN 3.4 g/dL (3.5-5.0); ALKALINE PHOSPHATASE 85 U/L (38-126); BLOOD UREA NITROGEN 10 mg/dL (7-17); CHLORIDE 91 mmol/L (98-107); Calcium 8.5 mg/dL (8.4-10.2); EST GLOMERULAR FILTRATION RATE 125.9 ML/MIN; Glucose 182 mg/dL (74-106); Potassium 4.2 mmol/L (3.5-5.1); SGOT/AST 21 U/L (14-36); SGPT/ALT 18 U/L (0-35); SODIUM 137 mmol/L (135-145); Total Protein 5.9 g/dL (6.3-8.2)
[2023-10-20 05:54] LABS: Carbon Dioxide 38 mmol/L (22-30)
[2023-10-20] MEDS ORDERED: Xylocaine 5% OINTMENT TP SCH (12:00)
[2023-10-20] MEDS: KEFLEX 250 MG/5 ML SUSP PO SCH (12:22)
[2023-10-20] MEDS: SILVADENE 50 GM TP SCH (12:24)
[2023-10-20] MEDS: Xylocaine 5% OINTMENT TP SCH (12:30)
--- NOTE | 2023-10-20 17:39 | CONS ---
HISTORY OF PRESENT ILLNESS: This is a 43-year-old female who does have benign esophageal strictures that has required her to have a PEG tube. This was placed many months ago. Yesterday, she found that it was difficult to use and presented to the ER and CT scan demonstrated that it had been dislodged into the subcutaneous tissue. She did not have evidence of free air, pneumoperitoneum, or free fluid. She had an unremarkable abdominal exam. Surgery was consulted to replace the feeding tube. I saw her on the floor. She feels fine currently other than just wanting her tube placed back in. REVIEW OF SYSTEMS: Negative unless stated in the HPI. PAST MEDICAL HISTORY: As stated in H and P. She has hypertension, myasthenia gravis, thymoma. PAST SURGICAL HISTORY: Dilation of esophagus with feeding tube placement as well as a cholecystectomy and thymectomy. PHYSICAL EXAMINATION: VITAL SIGNS: Stable. GENERAL: Comfortable in bed, alert and oriented. CARDIOVASCULAR: Regular rate and rhythm. RESPIRATORY: Nonlabored breathing. ABDOMEN: PEG tube still remains in the abdomen. Otherwise, she is soft, nontender, nondistended. LABORATORY DATA: Significant laboratory findings: No acute issues at this time. Significant radiographic findings: As stated, her PEG tube was dislodged into her subcutaneous tissue without free air, free fluid. ASSESSMENT: This is a 43-year-old female with a dislodged PEG tube. PLAN: I will attempt to repeat a percutaneous gastrostomy. If I am unable to do this in a percutaneous way, I will have to do an pen gastrostomy. I explained the risks and benefits of the procedure with the patient including but not limited to bleeding, infection, need for further surgery, and injury to adjacent structure. She consents to the procedure being performed. N.p.o. for the procedure. Gave Ancef 2 g.
--- NOTE | 2023-10-20 17:40 | OP ---
SURGERY DATE/TIME: 10/19/2023 6819 - 7814 BRIEF HISTORY: This is a 43-year-old female who has a long-term history of gastrostomy for feeds because of an esophageal stricture. She has an extensive surgical history involving a thymoma and resection years ago and since then have required dilations of her esophagus and/or tube feeds through gastrotomy. Unfortunately, it dislodged yesterday. She came into the ER for this problem, and I offered her a replacement endoscopically with the possibility of needing to do an open gastrostomy depending on whether I could get down her esophagus. She understands the risks and benefits of the procedure including but not limited to bleeding, infection, injury to adjacent structure, and need for further surgery. PREOPERATIVE DIAGNOSIS: Esophageal stricture. POSTOPERATIVE DIAGNOSIS: Esophageal stricture. PROCEDURES: 1) Esophagogastroduodenoscopy. 2) Balloon dilation of esophageal stricture to 18 mm. 3) Placement of a percutaneous endoscopic gastrostomy. SURGEON: Kenroy Ortiz MD DESCRIPTION OF PROCEDURE AND FINDINGS: The patient was taken to the OR in stable condition and placed on table in supine position. IV anesthetic was administered and she was monitored for the duration of the procedure by the anesthesia department. Time-out was called. The abdomen was prepped and draped. I began by passing a flexible endoscope down the oropharynx into the proximal esophagus. About midway down, I encountered a stricture that I could not pass the scope down. Therefore, I elected to dilate the stricture to 18 mm with a balloon dilator to see if I could get down. I did this and I was able to pass through it. I then passed through the GE junction, into the stomach and the stomach appeared normal. There was no other evidence of abnormality. Elected to proceed with the percutaneous gastrostomy. I attempted transillumination, was successful. I performed safe pass technique with a needle and lidocaine which was also successful and there was 1:1 ballottement. Therefore, a needle with a flexible plastic catheter on the outside was passed through the skin, into the stomach at the appropriate site. After the needle was removed, through the catheter, a wire was inserted. I then grasped the wire with a snare through the endoscope and pulled the wire out of the mouth, now having a wire connecting from the mouth down into the stomach and out through the skin on the abdomen. I then attached a Pull Kit PEG tube to the wire and pulled it out of the abdominal wall, which I went down with the endoscope again into the stomach to check bumper position. It appeared appropriate. It was not too tight and the stricture did not have evidence of bleeding or perforation. I was content with this portion of the procedure. The endoscope was removed. The gastrostomy tube was then trimmed to length and from the wire and then a bumper snap and cap were then placed onto it appropriately and the catheter was then placed under dressing with 4 x 4 and tape. She tolerated the procedure well, was taken to Recovery in stable condition.
[2023-10-20] MEDS: Hydromorphone 1 mg/ml Injection IV PRN (18:27)
--- NOTE | 2023-10-21 05:15 | PCM.DS ---
Discharge Summary Date of Admission: 10/19/23 00:57 Date of Discharge: 10/21/23 Admitting Physician: HORACIO MARTIN MD Consults: Consults on Case 10/19/23 12:02 Nutritional Consult ROUTINE Primary Care Provider: ELIOT PARKS Allergies Allergies celecoxib [From Celebrex] Allergy (Verified 10/21/23 09:23) levothyroxine Allergy (Verified 10/21/23 09:23) Hospital Summary - Hospital Course Hospital Course: HPI: Ms. 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 CT imaging confirmed the feeding tube out of position in the space anterior to the stomach, not in the lumen. Surgery consulted and feeding tube replaced 10/19/23. Junior Network Engineer consulted and tube feedings resumed with Jevity at 75 ml/hr over 14 hours to meet 1500 calories. Patient states she is feeling much better today with the resumption of tube feedings. ER debrided left thumb. Will start her on liquid keflex as patient has trouble swallowing pills. Dressing changes BID with application of silvadene ointment. She does have the equipment and supplies for feedings at home but states she did not receive instructions on how to do it herself as she was in the hospital during that appt. [facility] set up for patient. She is to continue tube feedings at home as prescribed. Patient to follow up with PCP for left thumb. New Diagnosis: Peg tube malfunction New Medications: Keflex Follow Up: PCP Latest Assessment & Plan (1) PEG tube malfunction Current Visit: Yes Status: Acute Assessment & Plan: -CT abd/pelvis with confirmation of feeding tube out of position in the space anterior to the stomach, not in the lumen -Surgery replaced feeding tube 10/19/23 -Junior Network Engineer consulted and tube feedings resumed with Jevity at 75 ml/hr over 14 hours to meet 1500 calories - feedings resumed -[facility] 10/20: -Resume home feeds as prescribed Code(s): K94.23 - GASTROSTOMY MALFUNCTION (2) Generalized weakness Current Visit: Yes Status: Acute Assessment & Plan: - PT eval ? home rehab - 2:2 not getting feedings X1 week Code(s): R53.1 - WEAKNESS (3) Infection of thumb Current Visit: Yes Status: Acute Assessment & Plan: - GS consulted - I&D in ER on admission - Cefazolin started IV - will continue Keflex x 7 days suspension due to difficulty swallowing -Silvadene/lidocaine topically - needs follow up with PCP as OP Code(s): L08.9 - LOCAL INFECTION OF THE SKIN AND SUBCUTANEOUS TISSUE, UNSP (4) Myasthenia gravis associated with thymoma Current Visit: Yes Status: Acute Assessment & Plan: - Known hx - F/u Op for meds and treatments Code(s): G70.00 - MYASTHENIA GRAVIS WITHOUT (ACUTE) EXACERBATION; D49.89 - NEOPLASM OF UNSPECIFIED BEHAVIOR OF OTHER SPECIFIED SITES (5) Migraine Current Visit: Yes Status: Chronic Assessment & Plan: - restart imitrex I spent 35 minutes [id number] with the patient on the day of discharge performing discharge exam, discussing hospital stay and discharge instructions with patient and caregivers, preparation of discharge records, prescriptions & referral forms and addressing any questions/concerns the patient had as documented above. - Vitals & Intake/Output Vital Signs: Vital Signs Temperature 96.8 F 10/21/23 03:00 Pulse Rate 95 H 10/21/23 03:00 Respiratory Rate 18 10/21/23 03:00 Blood Pressure 110/72 10/21/23 03:00 O2 Sat by Pulse Oximetry 98 10/21/23 03:00 Intake & Output: Intake & Output 10/18/23 10/19/23 10/20/23 10/21/23 11:59 11:59 11:59 11:59 Intake Total 61 767 2764 Output Total 1050 Balance 61 -283 2764 Weight 71.5 kg - Lab Result Diagrams: 10/21/23 05:55 10/21/23 05:55 Lab Results-Last 24 Hrs: Lab Results-Last 24 Hours 10/20/23 10/20/23 Range/Units 05:25 05:25 WBC 6.5 (3.98-10.04) x10^3/uL RBC 3.59 L (3.93-5.22) x10^6/uL Hgb 10.7 L (11.2-15.7) g/dL Hct 34.0 L (34.1-44.9) % MCV 94.7 (79.4-94.8) fL MCH 29.8 (25.6-32.2) pg MCHC 31.5 L (32.2-35.5) g/dL RDW 12.2 (11.7-14.4) % Plt Count 292 (182-369) x10^3/uL MPV 9.0 L (9.4-12.3) fL Sodium 137 (135-145) mmol/L Potassium 4.2 (3.5-5.1) mmol/L Chloride 91 L (98-107) mmol/L Carbon Dioxide 38 H (22-30) mmol/L BUN 10 (7-17) mg/dL Creatinine 0.40 L (0.52-1.04) mg/dL Estimated GFR 125.9 ML/MIN Glucose 182 H (74-106) mg/dL Calcium 8.5 (8.4-10.2) mg/dL Total Bilirubin 0.10 L (0.2-1.3) mg/dL AST 21 (14-36) U/L ALT 18 (0-35) U/L Alkaline Phosphatase 85 (38-126) U/L Serum Total Protein 5.9 L (6.3-8.2) g/dL Albumin 3.4 L (3.5-5.0) g/dL Micro Results-Entire Visit: Microbiology 10/18/23 21:11 Urine Culture - Final Clean Catch Midstream MIXED SHIVA; 3 OR MORE TYPES. NO PREDOMINANT ORGANISM. NO FURTHER WORKUP. PLEASE RESUBMIT IF CLINICALLY INDICATED. - Radiology Exams Ordered Rad Exams-Entire Visit: Radiology Procedures Category Date Time Status HAND (2 VIEW) Routine Exams 10/19/23 14:10 Completed - Procedures and Test Procedures and Tests throughout Hospitalization: Therapy Orders & Screens 10/19/23 01:01 Oxygen Nasal Cannula 3 lpm Comment: Respiratory Therapy Consult ONCE Comment: Reason For Exam: 10/19/23 03:47 Respiratory Therapy Assessment DAILY Comment: Diagnosis: feeding tube problem 10/19/23 04:09 RT Screen per Nursing Assess ONCE Comment: Protocol Order Physician Instructions: Greater than 3 points order RT Admission Screen Reason For Exam: Triggered on Admission Diagnosis: feeding tube problem Diagnosis: feeding tube problem Pneumonia: No Home O2: Yes Asthma: No CHF: No Home CPAP/BIPAP: Yes Home Nebs/MDI: Yes Total Points: 15 ST Screen per Nursing Assess ONCE Comment: Protocol Order Physician Instructions: Greater than [address] Admission Screening Reason For Exam: Triggered on Admission Diagnosis: feeding tube problem CVA/Dyshpagia/Aphasia: No Cognitive Deficits: No Dehydration/Nutrition Deficit: Yes Reflux: No Oral-Motor Difficulties: No Pneumonia: No Jail Resident: No Total Points: 5 10/19/23 09:51 EKG ROUTINE Comment: Diagnosis: feeding tube problem EKG Reason: Other 10/19/23 10:59 PT Eval & Treat (MD Order) ONCE Reason for Eval:: weakness Diagnosis: feeding tube problem Discharge Exam General Appearance: no apparent distress Neurologic Exam: alert, oriented x 3, cooperative Eye Exam: PERRL Ears, Nose, Throat Exam: normal ENT inspection Neck Exam: normal inspection Respiratory Exam: normal breath sounds, lungs clear Cardiovascular Exam: regular rate/rhythm, normal heart sounds Gastrointestinal/Abdomen Exam: soft, normal bowel sounds, other (PEG) Pelvic Exam: deferred Rectal Exam: deferred Back Exam: normal inspection Extremity Exam: normal inspection Skin Exam: pale Wound Assessment: Skin/Wound Assessment Wound/Incision Assessment Start: 10/19/23 0 1:05 Text: Status: Active Freq: Q6H Protocol: Document 10/21/23 02:00 AF (Rec: 10/21/23 04:08 AF [id number]) Wound/Incision Assessment Anterior Abdomen Wound Assessment Shift Assessment Wound Type S/P PEG tube placement Wound Stage Non Pressure Wound Dressing Status Dry & Intact Drainage Amount None Drainage Odor None/Absent Comment S/P PEG tube placement- Dressing over new PEG site removed, skin around new placement is clean and dry, no drainage noted. previous PEG insertion site remains to central abdomen, no drainge noted, skin surrounding is clean and dry no redness noted at this time, dressing CDI, all remains true. left thumb Wound Assessment Shift Assessment Wound Type spider bite s/p I&D Wound Stage Non Pressure Wound Dressing Status Changed Drainage Amount None General Appearance Clean/Dry Surrounding Tissue [place] Topical Solution/Irrigant Medicated Ointment Primary Dressing Non-Adherent Gauze Pads Secondary Dressing Gauze Roll/Wrap Comment Removed old dressing, applied Lidocaine and Silvadene, covered with telfa pad and wrapped with gauze roll. Wound Photo Photo Taken No Final Diagnosis/Problem List - Final Discharge Diagnosis/Problem (1) PEG tube malfunction Current Visit: Yes Status: Resolved Code(s): K94.23 - GASTROSTOMY MALFUNCTION (2) Generalized weakness Current Visit: Yes Status: Chronic Code(s): R53.1 - WEAKNESS (3) Infection of thumb Current Visit: Yes Status: Acute Code(s): L08.9 - LOCAL INFECTION OF THE SKIN AND SUBCUTANEOUS TISSUE, UNSP (4) Myasthenia gravis associated with thymoma Current Visit: Yes Status: Chronic Code(s): G70.00 - MYASTHENIA GRAVIS WITHOUT (ACUTE) EXACERBATION; D49.89 - NEOPLASM OF UNSPECIFIED BEHAVIOR OF OTHER SPECIFIED SITES (5) Migraine Current Visit: Yes Status: Chronic Code(s): G43.909 - MIGRAINE, UNSP, NOT INTRACTABLE, WITHOUT STATUS MIGRAINOSUS - Discharge Discharge Date: 10/21/23 (home with [facility]) Disposition: HOME HEALTH SERVICE Condition: Stable Prescriptions: New Cephalexin 250 mg/5 ml Susp [Keflex 250 mg/5 ml Susp] 10 ml PO QID 6 Days #240 ml Silver Sulfadiazine 50 gm [Silvadene 50 gm] 50 gm TP BID Continue Oxycodone HCl 30 mg PO Q4-6HPRN PRN PRN Reason: Pain fentaNYL [Duragesic] 75 mcg TD UD Budesonide 0.5 mg/2 ml [Pulmicort 0.5 mg/2 ml Respules] 0.5 mg IH BID Metoprolol Succinate 50 mg [Toprol Xl 50 MG] 25 mg PO DAILY Albuterol 2.5 mg/3 ml Neb [Proventil 2.5 mg/3 ml Neb] 2.5 mg IH Q4- 6HPRN PRN PRN Reason: Shortness Of Breath/Wheezing ondansetron HCL [Zofran] 8 mg PO Q6H PRN PRN PRN Reason: Nausea Omeprazole 40 mg PO DAILY Promethazine HCl/Codeine [Prometh-Codein 6.25-10 mg/5 ml] 5 ml PO Q6H PRN PRN PRN Reason: Cough ALPRAZolam 0.25 MG [xanAX 0.25 MG] 0.25 mg PO TID PRN Oxycodone HCl [Oxycontin] 60 mg PO BID Benzonatate 200 mg PO TID PRN Fluoxetine HCl [Prozac] 40 mg PO DAILY Fluconazole [Diflucan] 200 mg PO DAILY Loratadine 10 mg [Claritin 10 mg] 10 mg PO DAILY Cyclobenzaprine HCl 5 mg PO TIDPRN Prednisone 10 mg [Deltasone 10 mg] 10 mg PO DAILY Omeprazole 40 mg PO BID Oxycodone HCl [Roxicodone] 90 mg PO Q4H Fluoxetine HCl 40 mg PO DAILY SUMAtriptan succinate [Imitrex 50 mg] 100 mg PO DAILY PRN PRN PRN Reason: Headache ALPRAZolam 1 MG [Xanax 1 mg] 1 mg PO TID PRN PRN Reason: Anxiety Prednisone 10 mg [Deltasone 10 mg] 30 mg PO DAILY Ondansetron [Ondansetron Odt ] 4 mg PO DAILY PRN PRN PRN Reason: Nausea Albuterol Sulfate [Albuterol Sulfate Hfa] 8.5 gm IH DAILY PRN PRN PRN Reason: Chest Pain fentaNYL [Fentanyl] 100 mcg TOP UD Discontinued Cephalexin Mh 500 mg [Keflex 500 mg] 500 mg PO TID Instructions: How to give a tube feeding, Percutaneous endoscopic gastrostomy (PEG) - Discharge instructions, Percutaneous endoscopic gastrostomy (PEG) in adults Additional Instructions: Dressing changes to left thumb BID with application of silvadene ointment - follow up with PCP next week RESUME HOME ORDER FOR TUBE FEEDINGS [facility] HAS BEEN SET UP FOR YOU. THEY WILL CALL YOU TO ARRANGE A TIME TO COME SEE YOU. THEIR PHONE NUMBER IS [phone] IF YOU NEED ANYTHING PRIOR TO THEIR VISIT Follow up with: ELIOT VARGAS MD [Primary Care Provider] - 10/27/23 11:15 am CHRISTELLE SANTO DO [ACTIVE STAFF] - 10/30/23 11:50 am ([facility])
[2023-10-21 06:21] LABS: Absolute Neutrophil Ct (ANC) 4.97 x10^3/uL (1.56-6.13); BASOPHIL % 0.1 % (0.1-1.2); Basophil (Absolute #) 0.01 x10^3/uL (0.01-0.08); Eosinophil % 0.3 % (0.7-5.8); Eosinophil (Absolute #) 0.02 x10^3/uL (0.04-0.36); Hematocrit 31.7 % (34.1-44.9); Hemoglobin 9.9 g/dL (11.2-15.7); IMMATURE GRAN # 0.01 x10^3u/L (0.001-0.031); IMMATURE GRAN % 0.1 % (0.001-0.429); Lymphocyte (Absolute #) 1.07 x10^3/uL (1.18-3.74); Lymphocytes % 15.1 % (19.3-51.7); Mean Cell Volume 94.9 fL (79.4-94.8); Mean Corpuscular Hemoglobin 29.6 pg (25.6-32.2); Mean Corpuscular Hgb Concent. 31.2 g/dL (32.2-35.5); Mean Platelet Volume 9.2 fL (9.4-12.3); Monocyte (Absolute #) 1.01 x10^3/uL (0.24-0.86); Monocytes % 14.2 % (4.7-12.5); Neutrophil % 70.2 % (34.0-71.1); Platelet Count 281 x10^3/uL (182-369); Red Blood Count 3.34 x10^6/uL (3.93-5.22); Red Cell Distribution Width 12.6 % (11.7-14.4); White Blood Count 7.1 x10^3/uL (3.98-10.04)
[2023-10-21 06:32] LABS: ALBUMIN 3.2 g/dL (3.5-5.0); ALKALINE PHOSPHATASE 80 U/L (38-126); BILIRUBIN,TOTAL < 0.10 mg/dL (0.2-1.3); BLOOD UREA NITROGEN 14 mg/dL (7-17); CHLORIDE 91 mmol/L (98-107); Calcium 8.7 mg/dL (8.4-10.2); Creatinine 1 0.39 mg/dL (0.52-1.04); EST GLOMERULAR FILTRATION RATE 126.6 ML/MIN; Glucose 146 mg/dL (74-106); Potassium 4.4 mmol/L (3.5-5.1); SGOT/AST 19 U/L (14-36); SGPT/ALT 16 U/L (0-35); SODIUM 137 mmol/L (135-145); Total Protein 5.7 g/dL (6.3-8.2)
[2023-10-21 06:39] LABS: Carbon Dioxide 45 mmol/L (22-30)
[2023-10-21 06:57] LABS: ANION GAP 5.4 MEQ/L (5-15)
[2023-10-21 12:01] VITALS: BP 131/67; PULSE 69; RESP 16; TEMP 98.1; O2SAT 92
== END 2023-10-21 14:35 | disposition home health service (06) ==
LOC: ED 19:39 → MERGE 10-19 00:57 → MED SURG 10-19 00:57
PROVIDERS: ADMIT Internal Medicine Nephrology; ATTEND Internal Medicine Nephrology
DX: K94.23 Gastrostomy malfunction (principal); R53.1 Weakness; Q39.3 Congenital stenosis and stricture of esophagus; L08.9 Local infection of the skin and subcutaneous tissue, unspecified; L03.012 Cellulitis of left finger; G70.00 Myasthenia gravis without (acute) exacerbation; D49.89 Neoplasm of unspecified behavior of other specified sites; G43.909 Migraine, unspecified, not intractable, without status migrainosus; I10 Essential (primary) hypertension; Z79.899 Other long term (current) drug therapy
CPT/HCPCS: 36000; 36415; 73120; 74176; 80053; 81001; 82805; 83605; 83690; 84703; 85025; 85027; 87086; 93005; 94760; 94762; 96360; 96372; 96374; 99285; C1726; J1170; J2250; J2371; J2405; J2704; J3010; Q3014; A9270-GY